=== PATIENT | male | born 1935 | race Caucasian/White ===

== ENCOUNTER 2017-04-21 10:16 | Emergency (ER) | payer MEDICARE ==
[~2017-04-21] VITALS: Ht 180.3 cm; Wt 89.4 kg
[~2017-04-21 10:16] MED LIST: CARDIZEM CD240 MG PO; CARTIA XT240 MG PO; FINASTERIDE5 MG PO; FISH OIL500 M1 PO; FLAXSEED1000 MG PO; MICARDIS40 MG PO; NEXIUM40 MG PO; POTASSIUM CL 225 MEQ PO; PRED FORTE1 ML OP; PULMICORT FLE180 MCG IH; PULMICORT FLEX90 MCG IH; SYNTHROID150 MCG PO; TRIAMTERENE-HC1 EAC3 PO; VITAMIN B-1250 MCG PO; VITAMIN B-150 MG PO; VITAMIN B-6200 MG PO
[2017-04-21] MEDS ORDERED: NEXIUM5 MG PO (11:24)
[2017-04-21] MEDS ORDERED: PREDNISONE20 MG PO (11:29)
[2017-04-21] MEDS ORDERED: BONINE25 MG PO (11:29)
--- NOTE | 2017-04-21 14:47 | EKG ---
[facility] [address] [facility] [place] [address] Signed Sinus rhythm with blocked premature atrial complexes Inferior infarct , age undetermined Abnormal ECG No previous ECGs available Confirmed by QUIANA CALDERON MD ([id number]) on 04/21/2017 2:47:45 PM Electronically Signed By: QUIANA CALDERON MD 04/21/17 1447 PATIENT NAME: GURWINDER STARK Electrocardiogram DATE OF : 35 PHYSICIAN: QUIANA CALDERON MD REPORT #: [id number] REPORT IS CONFIDENTIAL AND NOT TO BE RELEASED WITHOUT AUTHORIZATION
== END 2017-04-21 12:02 | disposition home or self-care (01) ==
LOC: ED 10:16
DX: H83.09 Labyrinthitis, unspecified ear (principal); H55.00 Unspecified nystagmus; I10 Essential (primary) hypertension; K21.9 Gastro-esophageal reflux disease without esophagitis; Z88.2 Allergy status to sulfonamides; Z79.899 Other long term (current) drug therapy
CPT/HCPCS: 70450; 80053; 84484; 85025; 93005; 93010; 96361; 96374; 99284; J2405; J7030

== ENCOUNTER 2018-11-20 08:43 | Emergency (ER) | payer MEDICARE ==
[~2018-11-20] VITALS: Ht 180.3 cm; Wt 89.4 kg
[~2018-11-20 08:43] MED LIST changes: +BONINE25 MG PO; +NEXIUM5 MG PO; +PREDNISONE20 MG PO
[2018-11-20] MEDS ORDERED: DIOVAN320 MG PO (08:59)
== END 2018-11-20 09:16 | disposition home or self-care (01) ==
LOC: ED 08:43
DX: M70.21 Olecranon bursitis, right elbow (principal); K21.9 Gastro-esophageal reflux disease without esophagitis; I10 Essential (primary) hypertension; Z79.52 Long term (current) use of systemic steroids; Z79.899 Other long term (current) drug therapy; Z88.2 Allergy status to sulfonamides
CPT/HCPCS: 99283

== ENCOUNTER 2018-12-17 07:52 | Emergency (ER) | payer MEDICARE ==
[~2018-12-17] VITALS: Ht 180.3 cm; Wt 89.4 kg
--- OUTSIDE RECORDS SUMMARY | ~2018-12-17 | XMS | Encounter Summary ---
Demographics + + + | Address | [address] | | | [place] [address] | + + + | Home Phone | | + + + | Preferred Language | Unknown | + + + | Marital Status | | + + + | Mormonism Affiliation | ADV | + + + | Race | White | + + + | Ethnic Group | Not or | + + + Author + + + | Author | [facility] | + + + | Organization | [facility] | + + + | Address | Unknown | + + + | Phone | Unavailable | + + + Support + + + + + | Name | Relationship | Address | Phone | + + + + + | JESSICA VIZCAINO | ECON | [place] | | + + + + + Care Team Providers + +------+ + | Care Cover Operator Name | Role | Phone | + +------+ + | No Pcp Per Patient | PCP | Unavailable | + +------+ + Encounter Details +--------+ + + + + | Date | Type | Department | Care Team | Description | +--------+ + + + + | 09/22/ | Results | [facility] | Estuardo Lindo, | | | 2017 | Only | [address] | MD [address] | | | | | [place], [place] | [place] [address] | | | | | [address] | [phone] | | | | | | | | +--------+ + + + [...] + +---------+ + | Alcohol Use | Drinks/We | oz/Week | Comments | | | ek | | | + + +---------+ + | No | | | | + + +---------+ + + + + | Sex Assigned at | Date Recorded | | | | + + + | Not on file | | + + + as of this encounter Plan of Treatment +--------+---------+ + + + | Date | Type | Specialty | Care Team | Description | +--------+---------+ + + + | 03/09/ | Office | Urology | Estuardo Lindo, | | | 2018 | Visit | | [address] | | | | | | [place] [address] | | | | | | [phone] | | | | | | | | +--------+---------+ + + + as of this encounter Procedures + +--------+ + + + | Procedure Name | Priori | Date/Time | Associated Diagnosis | Comments | | | ty | | | | + +--------+ + + + | BASIC METABOLIC SET | Routin | 09/22/2018 | | Results for this | | (NA, K, CL, TCO2, | e | 9:10 AM | | procedure are in the | | BUN, CR, GLU, CA) | | PST | | results section. | + +--------+ + + + in this encounter Results BASIC METABOLIC SET (NA, K, CL, TCO2, BUN, CR, GLU, CA) (09/22/2018 9:10 AM) + + + + + | Component | Value | Ref Range | Performed At | + + + + + | SODIUM, PLASMA (LAB) | 135 | 132 - 143 meq/L | [facility] - | | | | | [place] | + + + + + | POTASSIUM, PLASMA | 3.2 (L) | 3.6 - 5.1 meq/L | [facility] - | | (LAB) | | | [place] | + + + + + | CHLORIDE, PLASMA | 96 | 95 - 112 meq/L | [facility] - | | (LAB) | | | [place] | + + + + + | CO2 | 24 | 19 - 31 meq/L | [facility] - | | | | | [place] | + + + + + | ANION GAP | 18.2 | 7 - 21 | [facility] - | | | | | [place] | + + + + + | GLUCOSE, PLASMA | 126 (H) | 70 - 100 mg/dL | [facility] - | | (LAB) | | | [place] | + + + + + | CALCIUM | 9.2 | 8.5 - 10.3 mg/dL | [facility] - | | | | | [place] | + + + + + | BUN, PLASMA (LAB) | 23 | 6 - 23 mg/dL | [facility] - | | | | | [place] | + + + + + | CREATININE PLASMA | 1.16 (H) | 0.70 - 1.11 mg/dL | [facility] - | | (LAB) | | | [place] | + + + + + | ESTIMATED GFR | 60 | ml/min | [facility] - | | | | | [place] | + + + + + | BUN/CREATININE RATIO | 19.8Comment: | 6.0 - 28.6 | [facility] - | | | | | [place] | | | ESTIMATED GFR Reference | | | | | Range: GFR = Less | | | | | than 60: Chronic Kidney | | | | | Disease, if found over | | | | | a 3 month | | | | | period. GFR = | | | | | Less than 15: Kidney | | | | | Failure. For | | | | | Americans, | | | | | multiply the calculated | | | | | GFR by 1.21. GFR | | | | | calculation is not valid | | | | | for patients under age | | | | | 18 years. For | | | | | patients over age 70 | | | | | please interpret results | | | | | with caution as | | | | | results have not | | | | | been validated for this | | | | | calculation | | | | | method | | | | | Please Note: Calcium | | | | | reference range change | | | | | as of 04/15/2018. | | | | | | | | + + + + + + + + | Narrative | Performed At | + + + | Testing Performed at: [facility] [place] [facility] CLIA: [id number] - [address] | [facility] | | [place] [address] | - [place] | + + + + + + + + | Performing | Address | City/State/Zipcode | Phone Number | | Organization | | | | + + + + + | [facility] - | [address] | [place] | [phone] | | [place] | | | | + + + + + in this encounter Visit Diagnoses Not on filein this encounter"
--- OUTSIDE RECORDS SUMMARY | ~2018-12-17 | XMS | Encounter Summary ---
Demographics + + + | Address | [address] | | | [place] [address] | + + + | Home Phone | | + + + | Preferred Language | Unknown | + + + | Marital Status | | + + + | Cheondoism Affiliation | ADV | + + + | Race | White | + + + | Ethnic Group | Not or | + + + Author + + + | Author | [facility] | + + + | Organization | [facility] | + + + [...] Team Providers + +------+ + | Care Information Security Architect Name | Role | Phone | + [...] + | 09/27/ | Telephone | [facility] | Estuardo Lindo, | Test Results | | 2017 | | [place] [address] | MD [address] | ([address]ressin | | | | [place], [place] | [place] [address] | follow-up, low | | | | [address] | [phone] | potassium) | | | | [phone] | | | +--------+ + + + [...] | | 2018 | Visit | | [address] | | | | | | [place] [address] | | | | | | [phone] | | | | | | | | +--------+---------+ + + + as of this encounter Visit Diagnoses Not on filein this encounter"
--- OUTSIDE RECORDS SUMMARY | ~2018-12-17 | XMS | Clinical Summary ---
Demographics + + + | Address | [address] | | | [place] [address] | + + + | Home Phone | | + + + | Preferred Language | Unknown | + + + | Marital Status | | + + + | Tenriism Affiliation | ADV | + + + | Race | White | + + + | Ethnic Group | Not or | + + + Author + + + | Author | [facility] | + + + | Organization | [facility] | + + + | Address | Unknown | + + + | Phone | Unavailable | + + + Support + + + + + | Name | Relationship | Address | Phone | + + + + + | JESSICA VIZCAINO | ECON | [place] | | + + + + + Care Team Providers + +------+ + | Care Life Insurance Underwriter Name | Role | Phone | + +------+ + | No Pcp Per Patient | PP | Unavailable | + +------+ + Source Comments ADRIENNE is fully live on both [facility] and [facility] Allergies + + + +--------+ + | Active Allergy | Reactions | Severity | Noted | Comments | | | | | Date | | + + + +--------+ + | Sulfasalazine | Rash | Medium | | | + + + +--------+ + Current Medications + + +--------+---------+------+------+-------+ | Prescription | Sig. | Disp. | Refills | Star | End | Statu | | | | | | t | Date | s | | | | | | Date | | | + + +--------+---------+------+------+-------+ | ofloxacin 0.3 % | | | | 02/1 | | Activ | | ophthalmic (eye) | | | | 02/14 | | e | | drops | | | | 18 | | | + + +--------+---------+------+------+-------+ | telmisartan 80 mg | Take one tablet | | | 06/ | | Activ | | oral tablet | daily | | | 01/15 | | e | | | | | | 16 | | | + + +--------+---------+------+------+-------+ | potassium chloride | Take 2 tablets twice | | | 07/0 | | Activ | | SR 20 mEq oral | daily | | | 20 | | e | | tablet,ER | | | | 17 | | | | particles/crystals | | | | | | | + + +--------+---------+------+------+-------+ | dilTIAZem CD 24 | Take by mouth. | | | 05/29 | | Activ | | hour release 240 mg | | | | 12/15 | | e | | oral | | | | 12 | | | | capsule,extended | | | | | | | | release 24hr | | | | | | | + + +--------+---------+------+------+-------+ | levothyroxine 175 | | | | 09/29 | | Activ | | mcg oral tablet | | | | 01/15 | | e | | | | | | 18 | | | + + +--------+---------+------+------+-------+ | | Take one tablet | | | 05/0 | | Activ | | triamterene-hydrochl | daily | | | 06/17 | | e | | orothiazide 75-50 mg | | | | 16 | | | | oral tablet | | | | | | | + + +--------+---------+------+------+-------+ | budesonide | INHALE 2 PUFFS BY | | | 05/30 | | Activ | | (PULMICORT | MOUTH TWICE DAILY | | | 05/17 | | e | | FLEXHALER) 180 | | | | 17 | | | | mcg/actuation | | | | | | | | inhalation aerosol | | | | | | | | powdr breath | | | | | | | | activated | | | | | | | + + +--------+---------+------+------+-------+ | cholecalciferol | Take by mouth. | | | | | Activ | | (Vitamin D3) 2,000 | | | | | | e | | unit oral capsule | | | | | | | + + +--------+---------+------+------+-------+ | cyanocobalamin | Take by mouth. | | | | | Activ | | (VITAMIN B-12) 500 | | | | | | e | | mcg oral tablet | | | | | | | + + +--------+---------+------+------+-------+ | esomeprazole | Take by mouth. | | | 05/29 | | Activ | | (NEXIUM) 40 mg oral | | | | 320 | | e | | capsule,delayed | | | | 12 | | | | release(DR/EC) | | | | | | | + + +--------+---------+------+------+-------+ | thiamine 250 mg | Take by mouth. | | | | | Activ | | oral tablet | | | | | | e | + + +--------+---------+------+------+-------+ | pyridoxine | Take 1 tablet by | | | | | Activ | | (vitamin B6) 100 mg | mouth once daily. | | | | | e | | oral tablet | | | | | | | + + +--------+---------+------+------+-------+ | folic acid 800 mcg | Take 1 tablet by | | | | | Activ | | oral tablet | mouth once daily. | | | | | e | + + +--------+---------+------+------+-------+ | B2/VITS | Take 1 capsule by | | | 05/29 | | Activ | | A,C,E/LUT/ZEAXANTH/M | mouth two times | | | 3/20 | | e | | IN (ICAPS ORAL) | daily. | | | 12 | | | + + +--------+---------+------+------+-------+ | losartan 100 mg | | | | 10/0 | | Activ | | oral tablet | | | | 9/20 | | e | | | | | | 18 | | | + + +--------+---------+------+------+-------+ | prednisoLONE | 1 drop once daily. | | | | | Activ | | acetate 1 % | | | | | | e | | ophthalmic (eye) | | | | | | | | drops,suspension | | | | | | | + + +--------+---------+------+------+-------+ | propylene | Instill 3 drops in | | | | | Activ | | glycol/peg 400 | eye three times | | | | | e | | (SYSTANE ULTRA OPHT) | daily. | | | | | | + + +--------+---------+------+------+-------+ | desmopressin 10 | Instill 1 spray into | 5 mL | 11 | 12/1 | | Activ | | mcg/spray (0.1 mL) | either nostril once | | | 2/20 | | e | | nasal | daily. | | | 18 | | | | spray,non-aerosol | | | | | | | + + +--------+---------+------+------+-------+ | FINASTERIDE 5 mg | TAKE 1 TABLET BY | 90 | 3 | 02/0 | | Activ | | oral tablet | MOUTH ONCE DAILY | tablet | | 05/17 | | e | | | | | | 19 | | | + + +--------+---------+------+------+-------+ Active Problems + + + | Problem | Noted Date | + + + | BPH with obstruction/lower urinary tract symptoms | 10/13/2016 | + + + Encounters +--------+ + + + + | Date | Type | Specialty | Care Team | Description | +--------+ + + + + | 11/05/ | Refill | | Estuardo Lindo, | Refill Request | | 2018 | | | MD | | +--------+ + + + + | 09/27/ | Telephone | | Estuardo Lindo, | Test Results | | 2017 | | | MD | ([address]mopressin | | | | | | follow-up, low | | | | | | potassium) | +--------+ + + + + | 09/22/ | Results | | Estuardo Lindo, | | | 2017 | Only | | MD | | +--------+ + + + + from Last 3 Months Immunizations + + + + | Name | Dates Previously Given | Next Due | + + + + | Influenza, Seasonal, | 07/13/2018, 10/06/2017 | | | Trivalent Vaccine, | | | | Adjuvanted, | | | | Preservative Free | | | + + + + | Influenza, high dose | 07/18/2016, 07/13/2016, 07/23/2015, | | | seasonal, | 06/16/2014 | | | preservative-free | | | + + + + | Influenza, | 07/29/2013, 06/03/2012 | | | Feliz maldonado | | | | [place] Canine Kidney, | | | | preservative free | | | + + + + | Influenza, seasonal, | 07/29/2013, 07/05/2013, 06/23/2012, | | | injectable, | 06/03/2012, 06/29/2011, 06/26/2010 | | | preservative free | | | | (IIV3) | | | + + + + | Influenza, split | 06/05/2009, 07/21/2008 | | | (incl. purified | | | | surface antigen) | | | + + + + | [id number], | 11/06/2009 | | | injectable | | | + + + + | PCV13 | 04/25/2016 | | + + + + | Pneumococcal 23 | 04/27/2015 | | + + + + | Zoster live | 06/23/2012, 06/03/2012 | | + + + + | influenza, | 07/09/2015, 07/29/2013, 06/03/2012 | | | recombinant, | | | | injectable, | | | | preservative free | | | + + + + Family History + + +------+ + | Medical History | Relation | Name | Comments | + + +------+ + | Cancer | Father | | lung and liver | + + +------+ + | Heart Attack | Maternal | | | | | Grandfath | | | | | er | | | + + +------+ + | Heart Disease | Mother | | | + + +------+ + | Heart Failure | Mother | | | + + +------+ + | Anesthesia | Neg Hx | | | + + +------+ + | Breast Cancer | Neg Hx | | | + + +------+ + | Prostate Cancer | Neg Hx | | | + + +------+ + + +------+ + + | Relation | Name | Status | Comments | + +------+ + + | Father | | | | + +------+ + + | Maternal Grandfather | | | | + +------+ + + | Maternal Grandmother | | | | + +------+ + + | Mother | | | | + +------+ + + Social History + +-------+ +--------+------+ [...] on file | | + + + Last Filed Vital Signs + + + + | Vital Sign | Reading | Time Taken | + + + + | Blood Pressure | 163/93 | 09/08/2018 11:55 AM PST | + + + + | Pulse | 73 | 09/08/2018 11:55 AM PST | + + + + | Temperature | - | - | + + + + | Respiratory Rate | 16 | 09/08/2018 11:55 AM PST | + + + + | Oxygen Saturation | - | - | + + + + | Inhaled Oxygen | - | - | | Concentration | | | + + + + | Weight | 88.9 kg (196 lb) | 11/19/2017 10:10 AM PST | + + + + | Height | 181.6 cm (5' 11.5") | 11/19/2017 10:10 AM PST | + + + + | Body Mass Index | 26.96 | 11/19/2017 10:10 AM PST | + + + + Plan of Treatment +--------+---------+ + + + | Date | Type | Specialty | Care Team | Description | +--------+---------+ + + + | 03/09/ | Office | | Estuardo Lindo, | | | 2018 | Visit | | [address] | | | | | | [place] [address] | | | | | | [phone] | | | | | | | | +--------+---------+ + + + + + + + + | Health Maintenance | Due Date | Last Done | Comments | + + + + + | Pneumococcal (Adult) | Completed | 04/25/2016, 04/27/2015 | | + + + + + | Influenza (Flu) | Completed | 07/13/2018, 10/06/2017, | | | vaccination | | 07/18/2016, Additional history | | | | | exists | | + + + + + Procedures + +--------+ + + + | [...] section. | + +--------+ + + + from Last 3 Months Results BASIC METABOLIC SET (NA, K, CL, [...] Testing Performed at: [facility] [place] [facility] CLIA: [id number] - [address] | [facility] | | [place] [address] | - [place] | + + + + + + + + | Performing | Address | City/State/Zipcode | Phone Number | | Organization | | | | + + + + + | [facility] - | [address] | [place], [place] | [phone] | | [place] | | | | + + + + + from Last 3 Months Insurance + +--------+ +--------+ + + | Payer | Benefi | Subscriber | Type | Phone | Address | | | t Plan | ID | | | | | | / | | | | | | | Group | | | | | + +--------+ +--------+ + + | MEDICARE | MEDICA | xxxxxxxxxx | Medica | [phone] | [id number] | | | RE A & | | re | [phone] | [place] [address] | | | B | | | | | + +--------+ +--------+ + + | COMMERCIAL GROUP | COMMER | xxxxxxxxx | Indemn | | | | | CIAL | | ity | | | | | GROUP | | | | | + +--------+ +--------+ + + | MEDICARE | MEDICA | xxxxxxxxxx | Medica | [phone] | [address] | | | RE A & | | re | [phone] | [place] [address] | | | B | | | | | + +--------+ +--------+ + + | [employer] | AARP | xxxxxxxxxxx | Indemn | [phone] | [address] | | RETIRED PEOPLE | | | ity | [phone] | [place] [address] | + +--------+ +--------+ + + + +--------+ +--------+ + + | Guarantor Name | Accoun | Relation to | Date | Phone | Billing Address | | | t Type | Patient | of | | | | | | | | | | + +--------+ +--------+ + + | GURWINDER STARK | Person | Self [birth year] | Home: | [address] | | | al/Fam | | 1936 | [phone] | [place] [address] | | | almaz | | | [address] | | + +--------+ +--------+ + + | GURWINDER STARK | Person | Self | [birth year] | Home: | [address] | | | al/Fam | | 1936 | [phone] | [place], [place] | | | almaz | | | [phone] | [phone] | + +--------+ +--------+ + +
--- OUTSIDE RECORDS SUMMARY | ~2018-12-17 | XMS | Encounter Summary ---
Demographics + + + | Address | [address] | | | [place] [address] | + + + | Home Phone | | + + + | Preferred Language | Unknown | + + + | Marital Status | | + + + | Evangelical Affiliation | ADV | + + + | Race | White | + + + | Ethnic Group | Not or | + + + Author + + + | Author | [facility] | + + + | Organization | [facility] | + + + | [...] Team Providers + +------+ + | Care Professor Of Biological Sciences Name | Role | Phone | + [...] Description | +--------+--------+ + + + | 11/05/ | Refill | [facility] | Estuardo Lindo, | Refill Request | | 2018 | | [place] [address] | [address] | | | | | [place], [place] | [place], [place] [address] | | | | | [address] | [phone] | | | | | [phone] | | | +--------+--------+ + + + [...] | | | | | [place] [address] | | | | | | [phone] | | | | | | | | +--------+---------+ + + + as of this encounter Visit Diagnoses Not on filein this encounter"
--- OUTSIDE RECORDS SUMMARY | ~2018-12-17 | XMS | Clinical Summary ---
Demographics + + + | Address | [address] | | | [place] [address] | + + + | Home Phone [...] Team Providers + +------+ + | Care Aws Consultant Name | Role | Phone | + +------+ + | No Pcp Per Patient | PP | Unavailable | + +------+ + Source Comments ADRIENNE is fully live on both [facility] and [facility] Allergies + + + +--------+ [...] | Feliz maldonado | | | | [place] Canine Kidney, | | | | preservative [...] | | + + + + | [id number], | 11/06/2009 | | | injectable | [...] | | | | | [place] [address] | | | | | | [phone] | | | | | | | [...] Testing Performed at: [facility] [facility] CLIA: [id number] - [address] | [facility] | | [place] [address] | - [place] | + + + + + + + + | Performing | Address | City/State/Zipcode | Phone Number | | Organization | | | | + + + + + | [facility] - | [address] | [place], [place] | [phone] | | [place] | | | | [...] | MEDICA | xxxxxxxxxx | Medica | [phone] | [phone] | | | RE A & | | re | [phone] | [place] [address] | | | B | | | [...] | re | [phone] | [place] [address] | | | B | | | | | + +--------+ +--------+ + + | [employer] | AARP | xxxxxxxxxxx | Indemn | [phone]- | [address] | | RETIRED PEOPLE | | | ity | [phone] | [place] [address] | + +--------+ +--------+ + + + [...] | | al/Fam | | 1936 | [phone] | [place] [address] | | | almaz | | | 1436 | | + +--------+ +--------+ + + | GURWINDER STARK | Person | Self | [birth year] | Home: | [address] | | | al/Fam | | 1936 | [phone] | [place], [place] | | | almaz | | | 1436 | [phone] | + +--------+ +--------+ + +
--- OUTSIDE RECORDS SUMMARY | ~2018-12-17 | XMS | Encounter Summary ---
Demographics + + + | Address | [address] | | | [place] [address] | + + + | Home Phone | | + + + | Preferred Language | Unknown | + + + | Marital Status | | + + + | Zoroastrianism Affiliation | ADV | + + + | Race | White | + + + | Ethnic Group | Not or | + + + Author + + + | Author | [facility] | + + + | Organization | [facility] | + + + [...] Team Providers + +------+ + | Care Marketing Financial Analyst Name | Role | Phone | + [...] St | | | | | [place], [place] | [place], [place] [address] | | | | | [address] | [phone] | | | | | [phone] | | | +--------+--------+ + + + [...] | | | | | [place] [address] | | | | | | [phone] | | | | | | | | +--------+---------+ + + + as of this encounter Visit Diagnoses Not on filein this encounter"
--- OUTSIDE RECORDS SUMMARY | ~2018-12-17 | XMS | Encounter Summary ---
Demographics + + + | Address | [address] | | | [place] [address] | + + + | Home Phone | | + + + | Preferred Language | Unknown | + + + | Marital Status | | + + + | Mandaeism Affiliation | ADV | + + + | Race | White | + + + | Ethnic Group | Not or | + + + Author + + + | Author | [facility] | + + + | Organization | [facility] | + + + | [...] Team Providers + +------+ + | Care Drill Press Operator Helper Name | Role | Phone | [...] | [place], [place] | [place], [place] [address] | | | | | [address] | [phone] | | | | | | | [...] | | | | | [place] [address] | | | | | | [phone] | | | | | | | [...] Testing Performed at: [facility] CLIA: [id number] - [address] | [facility] | | [place] [address] | - [place] | + + + + + + + + | Performing | Address | City/State/Zipcode | Phone Number | | Organization | | | | + + + + + | [facility] - | [address] | [place] | [phone] | | [place] | | | | + + + + + in this encounter Visit Diagnoses Not on filein this encounter"
--- OUTSIDE RECORDS SUMMARY | ~2018-12-17 | XMS | Clinical Summary ---
Demographics + + + | Address | [address] | | | [place] [address] | + + + | Home Phone | | + + + | Preferred Language | Unknown | + + + | Marital Status | | + + + | Mormonism Affiliation | 1001 | + + + | Race | Unknown | + + + | Ethnic Group | Unknown | + + + Author + + + | Author | [facility] | | | and [place] | + + + | Organization | [facility] | | | and [place] | + + + | Address | Unknown | + + + | Phone | Unavailable | + + + Support + + +---------+ + | Name | Relationship | Address | Phone | + + +---------+ + | Lisa Stark | ECON | Unknown | | + + +---------+ + Care Team Providers + +------+ + | Care Refinery Operator Coking Name | Role | Phone | + +------+ + | Chava Ibanez | PP | | | MD | | | [...] + +--------+ + Current Medications + + +---------+---------+------+------+-------+ | Prescription | Sig. | Disp. | Refills | Star | End | Statu | | | | | | t | Date | s | | | | | | Date | | | + + +---------+---------+------+------+-------+ | diltiazem | Take 240 mg by mouth | | | /1 | | Activ | | (CARDIZEM CD) 240 MG | Daily. | | | 3/20 | | e | | 24 hr capsule | | | | 12 | | | + + +---------+---------+------+------+-------+ | esomeprazole | Take 40 mg by mouth | | | 091 | | Activ | | (NEXIUM) 40 mg | Daily. | | | 3/20 | | e | | capsule | | | | 12 | | | + + +---------+---------+------+------+-------+ | Multiple | Take by mouth 2 | | | 05/29 | | Activ | | Vitamins-Minerals | times daily. | | | 12/15 | | e | | (EYE VITAMINS) CAPS | | | | 12 | | | + + +---------+---------+------+------+-------+ | PrednisoLONE | Apply to eye. 1 | | | | | Activ | | Sodium Phosphate | drop in each eye | | | | | e | | (PREDNISOL OP) | once a day | | | | | | + + +---------+---------+------+------+-------+ | Pyridoxine HCl | Take 100 mg by mouth | | | | | Activ | | (VITAMIN B-6) 100 MG | Daily. | | | | | e | | tablet | | | | | | | + + +---------+---------+------+------+-------+ | potassium chloride | Take 2 tablets am, 2 | | 2 | 07/0 | | Activ | | (K-DUR) 20 mEq ER | noon, 1 bedtime | | | 06/17 | | e | | tablet | | | | 17 | | | + + +---------+---------+------+------+-------+ | folic acid | Take 400 mcg by | | | | | Activ | | (FOLVITE) 800 MCG | mouth Daily. | | | | | e | | tablet | | | | | | | + + +---------+---------+------+------+-------+ | Cholecalciferol | Take 2,000 Units by | | | | | Activ | | (VITAMIN D-3) 2000 | mouth Daily. | | | | | e | | units CAPS | | | | | | | + + +---------+---------+------+------+-------+ | Thiamine HCl | Take 250 mg by mouth | | | | | Activ | | (VITAMIN B-1) 250 MG | Daily. | | | | | e | | tablet | | | | | | | + + +---------+---------+------+------+-------+ | cyanocobalamin | Take 500 mcg by | | | | | Activ | | (VITAMIN B-12) 500 | mouth Daily. | | | | | e | | mcg tablet | | | | | | | + + +---------+---------+------+------+-------+ | doxazosin | Take 1 tablet by | | | 03/29 | | Activ | | (CARDURA) 2 mg | mouth nightly. | | | 01/15 | | e | | tablet | | | | 18 | | | + + +---------+---------+------+------+-------+ | finasteride | Take 1 tablet by | | | 01/27 | | Activ | | (PROSCAR) 5 mg | mouth Daily. | | | 01/15 | | e | | tablet | | | | 18 | | | + + +---------+---------+------+------+-------+ | valsartan (DIOVAN) | Take 1 tablet by | | | 02/27 | | Activ | | 320 MG tablet | mouth Daily. | | | 05/17 | | e | | | | | | 18 | | | + + +---------+---------+------+------+-------+ | ofloxacin | Apply 1 drop to eye | | | 05/1 | | Activ | | (OCUFLOX) 0.3% | 3 times daily. | | | 5/20 | | e | | ophthalmic solution | | | | 18 | | | + + +---------+---------+------+------+-------+ | levothyroxine | Take 175 mcg by | | | | | Activ | | (SYNTHROID) 175 MCG | mouth every morning | | | | | e | | tablet | (before breakfast). | | | | | | + + +---------+---------+------+------+-------+ | | Take 1 tablet by | | | | | Activ | | triamterene-hydrochl | mouth Daily. | | | | | e | | orothiazide | | | | | | | | (MAXZIDE) 75-50 mg | | | | | | | | per tablet | | | | | | | + + +---------+---------+------+------+-------+ | budesonide | Inhale 1 puff into | 3 | 3 | 03/29 | | Activ | | (PULMICORT | the lungs 2 times | Inhaler | | 5/20 | | e | | FLEXHALER) 180 | daily. | | | 18 | | | | mcg/puff | | | | | | | | inhalerIndications: | | | | | | | | Bronchiectasis | | | | | | | | without complication | | | | | | | | ([facility]) | | | | | | | + + +---------+---------+------+------+-------+ Active Problems + + + | Problem | Noted Date | + + + | Sjogren's syndrome ([facility]) | 12/01/2012 | + + + + [...] | INFLUENZA 65 Y OR >, | 07/18/2016 | | | TRIVALENT HIGH-DOSE | | [...] 1 DOSE | 06/03/2012 | | | (MANUELX) | | | + + + + [...] + + + + | Brother | [place] | | | + + + + [...] + + + + | Sister | [place] | Alive | | + + + [...] + +---------+ + | No | 0 | 0.0 | | | | Standard | | | | | drinks or | | | | | | | | | | equivalen | | | | | t | | | + + +---------+ + + + + | Sex Assigned at | Date Recorded | | | | + + + | Not on file | | + + + Last Filed Vital Signs + + + + | Vital Sign | Reading | Time Taken | + + + + | Blood Pressure | 122/68 | 04/21/2018921 PDT | + + + + | Pulse | 65 | 04/21/2018921 PDT | + + + + | Temperature | - | - | + + + + | Respiratory Rate | 14 | 04/27/2015 1114 PDT | + + + + | Oxygen Saturation | 96% | 04/21/2018921 PDT | + + + + | Inhaled Oxygen | - | - | | Concentration | | | + + + + | Weight | 94.5 kg (208 lb 5.4 | 04/21/2018921 PDT | | | oz) | | + + + + | Height | 181.6 cm (5' 11.5") | 04/21/2018921 PDT | + + + + | Body Mass Index | 28.65 | 04/21/2018921 PDT | + + + + Plan of Treatment +--------+---------+ + + + | Date | Type | Specialty | Care Team | Description | +--------+---------+ + + + | 04/22/ | Office | | Jeffrey Mejia, | | | 2018 | Visit | | MD Christine Painting | | | | | | Oliva, Level II | | | | | | [place] | | | | | | [address] | | | | | | | | +--------+---------+ + + + + + + + + | Health Maintenance | Due Date | Last Done | Comments | + + + + + | Vaccine: | | | | | Dtap/Tdap/Td (1 - | 5 | | | | Tdap) | | | | + + + + + | Vaccine: Zoster (2 | | 06/03/2012 | | | of 3) | 2 | | | + + + + + | Adult Annual | | | | | Wellness Visit | 5 | | | + + + + + | Vaccine: Influenza | | 07/18/2016, 07/09/2015, | | | (#1) | 8 | 07/29/2013, Additional history | | | | | exists | | + + + + + | Vaccine: | Completed | 04/25/2016, 04/27/2015 | | | Pneumococcal 65+ | | | | | Low/Medium Risk | | | | + + + + + Results Not on filefrom Last 3 Months Insurance + +--------+ +--------+ +---------+ | Payer | Benefi | Subscriber | Type | Phone | Address | | | t Plan | ID | | | | | | / | | | | | | | Group | | | | | + +--------+ +--------+ +---------+ | MEDICARE | MEDICA | [id number] | Medica | [phone]- | | | | RE | | re | [phone] | | | | PART A | | | | | | | AND B | | | | | + +--------+ +--------+ +---------+ | AARP | AARP | [id number] | Indemn | [phone] | | | MDCR | | ity | [phone] | | | | SUPPL | | | | | + +--------+ +--------+ +---------+ + +--------+ +--------+ + + | Guarantor Name | Accoun | Relation to | Date | Phone | Billing Address | | | t Type | Patient | of | | | | | | | | | | + +--------+ +--------+ + + | GURWINDER STARK | Person | Self [birth year] Home: | [address] | | | al/Fam | | 1936 | [phone] | [place] [address] | | | almaz | | | [phone] | | + +--------+ +--------+ + +
--- OUTSIDE RECORDS SUMMARY | ~2018-12-17 | XMS | Encounter Summary ---
Demographics + + + | Address | [address] | | | [place] [address] | + + + | Home Phone | | + + + | Preferred Language | Unknown | + + + | Marital Status | | + + + | Nondenominational Affiliation | ADV | + + + | Race | White | + + + | Ethnic Group | Not or | + + + Author + + + | Author | [facility] | + + + | Organization | [facility] | + + + | [...] Team Providers + +------+ + | Care Pan Reclaim Processor Name | Role | Phone | + [...] | (Desmopressin | | | | [place], [place] | [place] [address] | follow-up, low | | | | [address] | [phone] | potassium) | | | | [phone] | | | +--------+ + + + [...] | | | | | [place] [address] | | | | | | [phone] | | | | | | | | +--------+---------+ + + + as of this encounter Visit Diagnoses Not on filein this encounter"
--- OUTSIDE RECORDS SUMMARY | ~2018-12-17 | XMS | Clinical Summary ---
Demographics + + + | Address | [address] | | | [place] [address] | + + + | Home Phone | | + + + | Preferred Language | Unknown | + + + | Marital Status | | + + + | Gnosticism Affiliation | 1001 | + + + | Race | Unknown | + + + | Ethnic Group | Unknown | + + + Author + + + | Author | [facility] | | | and [place] | + + + | Organization | [facility] | | | and [place] | [...] Providers + +------+ + | Care Sole Cutter Name | Role | Phone | + [...] | | | | | | | ([facility]) | | | | | | | + + +---------+---------+------+------+-------+ Active Problems + + + | Problem | Noted Date | + + + | Sjogren's syndrome ([facility]) | 12/01/2012 | + + + + [...] + + + + | Sister | [place] | Alive | | + + + [...] [place] | | | | | | [address] | | | | | | | [...] +--------+ +---------+ | MEDICARE | MEDICA | [id number] | Medica | +1- | | | | RE | | re | [phone] | | | | PART A | | | | | | | AND B | | | | | + +--------+ +--------+ +---------+ | AARP | AARP | [id number] | Indemn | [phone] | | | [...] | 1936 | [phone] | [place] [address] | | | almaz | | | [phone] | | + +--------+ +--------+ + +
[~2018-12-17 07:52] MED LIST changes: +DIOVAN320 MG PO
--- OUTSIDE RECORDS SUMMARY | 2018-12-17 07:54 | XMS ---
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 - 2 Visits in 30 Days CARE PROVIDERS Chava Ibanez MD PHONE: Unknown Barbra has no Care Guidelines for this patient. EMolly VISIT COUNT ([address] [facility] TOTAL 2 NOTE: Visits indicate total known visits. ED/UCC VISIT TRACKING (12 MO.) 12/17/2018 07:53 [facility] TYPE: Emergency COMPLAINT: - RT FOOT PAIN 11/20/2018 08:44 [facility] [place] TYPE: Emergency COMPLAINT: - R ELBOW SWELLING DIAGNOSES: - Essential (primary) hypertension - manager intermediate (current) use of systemic steroids - Other [facility] (current[facility] drug therapy - Localized swelling, mass and lump, right upper limb - Gastro-esophageal reflux disease without esophagitis - Allergy status to sulfonamides status - Olecranon bursitis, right elbow INPATIENT VISIT TRACKING (12 MO.) No inpatient visits to display in this time frame [email or web address]
[2018-12-17] MEDS ORDERED: KEFLEX500 MG PO (08:22)
[2018-12-17] MEDS ORDERED: NORCO 5-325 TA1 EACH PO (08:22)
== END 2018-12-17 09:00 | disposition home or self-care (01) ==
LOC: ED 07:52
DX: L03.115 Cellulitis of right lower limb (principal); K21.9 Gastro-esophageal reflux disease without esophagitis; I10 Essential (primary) hypertension; Z90.49 Acquired absence of other specified parts of digestive tract; Z88.2 Allergy status to sulfonamides; Z79.899 Other long term (current) drug therapy
CPT/HCPCS: 96372; 99282-25; J0696

== ENCOUNTER 2019-09-22 06:55 | Emergency (ER) | payer MEDICARE ==
[~2019-09-22] VITALS: Ht 180.3 cm; Wt 88.0 kg
--- OUTSIDE RECORDS SUMMARY | ~2019-09-22 | XMS | Encounter Summary ---
Demographics + + + | Address | [address] | | | [place] [address] | + + + | Home Phone | | + + + | Preferred Language | Unknown | + + + | Marital Status | | + + + | Jain Affiliation | ADV | + + + | Race | White | + + + | Ethnic Group | Not or | + + + Author + + + | Author | [facility] | + + + | Organization | [facility] | + + + | Address | Unknown | + + + | Phone | Unavailable | + + + Support + + + + + | Name | Relationship | Address | Phone | + + + + + | Diana [place] | ECON | [place] | | + + + + + Care Team Providers + +------+ + | Care Experimental Mechanic Electrical Name | Role | Phone | + +------+ + PCP | Unavailable | + +------+ + Encounter Details +--------+ + + + + | Date | Type | Department | Care Team | Description | +--------+ + + + + | 04/10/ | Results | [facility] | Estuardo Lindo, | | | 2010 | Only | [address] | [address] | | | | | [place], [place] | [place], [place] [address] | | | | | [address] | [phone] | | | | | [phone] | | | +--------+ + + + + Social History + +-------+ +--------+------+ | Tobacco Use | Types | Packs/Day | Years | Date | | | | | Used | | + +-------+ +--------+------+ | Never Assessed | | | | | + +-------+ +--------+------+ + + + | Sex Assigned at | Date Recorded | | | | + + + | Not on file | | + + + + + + + | Job Start Date | Occupation | Industry | + + + + | Not on file | Not on file | Not on file | + + + + + + + + | Travel History | Travel Start | Travel End | + + + + + + | No recent travel history available. | + + documented as of this encounter Plan of Treatment Not on filedocumented as of this encounter Procedures + +--------+ + + + | Procedure Name | Priori | Date/Time | Associated Diagnosis | Comments | | | ty | | | | + +--------+ + + + | TESTOSTERONE, SERUM | Routin | 04/10/2011 | | Results for this | | | e | 12:44 PM | | procedure are in the | | | | PDT | | results section. | + +--------+ + + + documented in this encounter Results TESTOSTERONE, SERUM (04/10/2011 12:44 PM PDT) + +-------+ + + + | Component | Value | Ref Range | Performed | Pathologist | | | | | At | Signature | + +-------+ + + + | TESTOSTERON | 2.60 | 1.68 - 7.58 | [facility] | | | E, TOTAL | | NG/ML | [facility] | | | | | [facility] | | + +-------+ + + + + + | Specimen | + + | | + + + + + + + | Performing | Address | City/State/Zipcode | Phone Number | | Organization | | | | + + + + + | [facility] | | | | | LABORATORY | | | | + + + + + | [facility] | And | [place] [address] | | | [facility] | [facility] | | | + + + + + documented in this encounter Visit Diagnoses Not on filedocumented in this encounter"
--- OUTSIDE RECORDS SUMMARY | ~2019-09-22 | XMS | Encounter Summary ---
Demographics + + + | Address | [address] | | | [place] [address] | + + + | Home Phone | | + + + | Preferred Language | Unknown | + + + | Marital Status | | + + + | Yarsanism Affiliation | 1001 | + + + | Race | Unknown | + + + | Ethnic Group | Unknown | + + + Author + + + | Author | [facility] | | | and [place] | + + + | Organization | [facility] | | | and [place] | + + + | Address | Unknown | + + + | Phone | Unavailable | + + + Support + + +---------+ + | Name | Relationship | Address | Phone | + + +---------+ + | Lisa Lacho | ECON | Unknown | | + + +---------+ + Care Team Providers + +------+ + | Care Ceramic Plater Name | Role | Phone | + +------+ + | Chava Ibanez PCP | | | MD | | | + +------+ + Reason for Visit + + + | Reason | Comments | + + + | Medication Refill | | + + + Encounter Details +--------+--------+ + + + | Date | Type | Department | Care Team | Description | +--------+--------+ + + + | 11/11/ | Refill | [facility] | Dano Wong | Medication Refill | | 2012 | | PULMONARY [address] | [place] [address] [address] | | | | | [place], | [place], [place] | | | | | [place] [address] | [address] | | | | | [phone] | | | +--------+--------+ + + + Social History + +-------+ +--------+------+ | Tobacco Use | Types | Packs/Day | Years | Date | | | | | Used | | + +-------+ +--------+------+ | Never Assessed | | | | | + +-------+ +--------+------+ + + +---------+ + | Alcohol Use | Drinks/Week | oz/Week | Comments | + + +---------+ + | No | | | | + + +---------+ + + + + | Sex Assigned at [...] Not on filedocumented as of this encounter Visit Diagnoses + + | Diagnosis | + + | Asthma - Primary Unspecified asthma | + + documented in this encounter"
--- OUTSIDE RECORDS SUMMARY | ~2019-09-22 | XMS | Encounter Summary ---
Demographics + + + | Address | [address] | | | [place] [address] | + + + | Home Phone | | + + + | Preferred Language | Unknown | + + + | Marital Status | | + + + | Denominational Affiliation | 1001 | + + + | Race | Unknown | + + + | Ethnic Group | Unknown | + + + Author + + + | Author | [facility] | | | and [place] | + + + | Organization | [facility] | | | and [place] | [...] Team Providers + +------+ + | Care Manager Financial Services Name | Role | Phone | + +------+ + PCP | Unavailable | + +------+ + Encounter Details +--------+ + + + + | Date | Type | Department | Care Team | Description | +--------+ + + + + | 01/08/ | Hospital | [facility] | Kade Wheat MD | | | 2000 | Encounter | MED CTR GENERIC OP | [address] | | | | | CONV DEPT [address] | [address] [place] | | | | | [place], | [address] | | | | | [place] [address] | | | | | | [phone] | | | +--------+ + + + [...] filedocumented as of this encounter Visit Diagnoses Not on filedocumented in this encounter"
--- OUTSIDE RECORDS SUMMARY | ~2019-09-22 | XMS | Encounter Summary ---
Demographics + + + | Address | [address] | | | [place] [address] | + + + | Home Phone | | + + + | Preferred Language | Unknown | + + + | Marital Status | | + + + | Congregation Affiliation | 1001 | + + + | Race | Unknown | + + + | Ethnic Group | Unknown | + + + Author + + + | Author | [facility] | | | and [place] | + + + | Organization | [facility] | | | and [place] [...] Team Providers + +------+ + | Care Paediatrician Name | Role | Phone | + +------+ + | Chava Ibanez PCP | | | MD | | | + +------+ + Reason for Visit + + + | Reason | Comments | + + + | Appointment | | + + + Encounter Details +--------+ + + + + | Date | Type | Department | Care Team | Description | +--------+ + + + + | 04/10/ | Telephone | [facility] | Dano Wong | Appointment | | 2014 | | PULMONARY [address] | [place] [address] | | | | | [place], | [place], [place] | | | | | [place] [address] | [address] | | | | | [phone] | | | +--------+ + + + + Social History + +-------+ +--------+------+ | Tobacco Use | Types | Packs/Day | Years | Date | | | | | Used | | + +-------+ +--------+------+ | Never Smoker | | | | | + +-------+ +--------+------+ + +---+---+---+ | Smokeless Tobacco: | | | | | Never Used | | | | + +---+---+---+ + + +---------+ + | Alcohol Use [...]
--- OUTSIDE RECORDS SUMMARY | ~2019-09-22 | XMS | Encounter Summary ---
Demographics + + + | Address | [address] | | | [place] [address] | + + + | Home Phone | | + + + | Preferred Language | Unknown | + + + | Marital Status | | + + + | Rastafari Affiliation | ADV | + + + | Race | White | + + + | Ethnic Group | Not or | + + + Author + + + | Author | [facility] | + + + | Organization | [facility] | + + + | [...] Team Providers + +------+ + | Care Elementary School Reading Teacher Name | Role | Phone | + +------+ + PCP | Unavailable | + +------+ + Encounter Details +--------+ + + + + | Date | Type | Department | Care Team | Description | +--------+ + + + + | 01/20/ | Results | [facility] | Estuardo Lindo, | | | 2005 | Only | [address] | [address] | | | | | [place], [place] | [place], [place] [address] | | | | | [address] | [phone] | | | | | [phone] | | | +--------+ + + + [...] | + +--------+ + + + | IV PYELOGRAM [id number] | Routin | 01/20/2006 | | Results for this | | | e | 11:29 AM | | procedure are in the | | | | PDT | | results section. | + +--------+ + + + documented in this encounter Results IV PYELOGRAM [id number] (01/20/2006 11:29 AM PDT) + + | Specimen | + + | | + + + + + | Narrative | Performed At | + + + | IVP INDICATION: Gross hematuria. FINDINGS: The preliminary KUB | [facility] | | shows levoscoliosis of the spine. There are no suspicious | DEPARTMENT OF | | calcifications identified. 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 The 2-mm calculus noted on CT of May 13, 2000 | | | is not apparent on KUB or plain nephrotomograms. Following IV | | | infusion of contrast, there is a prompt bilateral opacification of | | | kidneys, normal in size, position, and axis. There are developmental | | | lobulations in the kidneys, also shown on the prior CT. There is | | | no evidence of discrete mass. 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 | | | There is no evidence of hydronephrosis or hydroureter, or renal | | | collecting system filling defects. 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 There | | | is increased post void residual in the bladder. There is a vague | | | focal lucency above the TURP defect, raising question of a possible | | | small bladder mass or artifact of blood clot, in this patient with | | | gross hematuria. Cystoscopic evaluation is suggested. IMPRESSION: | | | No evidence of nephrolithiasis, hydronephrosis, or renal mass. | | | TURP defect. Penile prosthesis. Increased postvoid residual. | | | Question of filling defect in the bladder. | | + + + + + | Procedure Note | + + | Interface, Radiology Results - 05/18/2015 2:49 PM PDT IVP | | INDICATION: Gross hematuria. | | FINDINGS: | | The preliminary KUB shows levoscoliosis of the spine. There are no | | suspicious calcifications identified. There is a penile prosthesis | | balloon in the left pelvis. The 2-mm calculus noted on CT of April | | 1999 is not apparent on KUB or plain nephrotomograms. Following | | IV infusion of contrast, there is a prompt bilateral opacification of | | kidneys, normal in size, position, and axis. There are developmental | | lobulations in the kidneys, also shown on the prior CT. There is no | | evidence of discrete mass. 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 There | | is no evidence of hydronephrosis or hydroureter, or renal collecting | | system filling defects. 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 There is increased | | post void residual in the bladder. There is a vague focal lucency | | above the TURP defect, raising question of a possible small bladder | | mass or artifact of blood clot, in this patient with gross hematuria. | | Cystoscopic evaluation is suggested. | | IMPRESSION: No evidence of nephrolithiasis, hydronephrosis, or renal | | mass. TURP defect. Penile prosthesis. Increased postvoid residual. | | Question of filling defect in the bladder. | + + + +---------+ + + | Performing | Address | City[facility] | Phone Number | | Organization | | | | + +---------+ + + | [facility] | | | | | RADIOLOGY | | | | + +---------+ + + documented in this encounter Visit Diagnoses Not on filedocumented in this encounter"
--- OUTSIDE RECORDS SUMMARY | ~2019-09-22 | XMS | Encounter Summary ---
Demographics + + + | Address | [address] | | | [place] [address] | + + + | Home Phone | | + + + | Preferred Language | Unknown | + + + | Marital Status | | + + + | Anabaptist Affiliation | 1001 | + + + | Race | Unknown | + + + | Ethnic Group | Unknown | + + + Author + + + | Author | [facility] | | | and [place] | + + + | Organization | [facility] | | | and [place] | + + + | Address | Unknown | + + + | Phone | Unavailable | + + + Support + + +---------+ + | Name | Relationship | Address | Phone | + + +---------+ + | Lisa [place] | ECON | Unknown | | + + +---------+ + Care Team Providers + +------+ + | Care Singing Waiter Or Waitress Name | Role | Phone | + +------+ + | Russell Tay MD | PCP | | + +------+ + Reason for Visit + + + | Reason | Comments | + + + | Medication Refill | | + + + Encounter Details +--------+--------+ + + + | Date | Type | Department | Care Team | Description | +--------+--------+ + + + | 01/01/ | Refill | [facility] | Jeffrey Mejia, | Medication Refill | | 2018 | | PULMONARY [address] | [address] | | | | | [place], | [place], [place] | | | | | [place] [address] | [address] | | | | | [phone] | | | +--------+--------+ + + + [...] + + +---------+ + | No | 0 Standard drinks | 0.0 | | | | or equivalent | | | + + +---------+ + [...]
--- OUTSIDE RECORDS SUMMARY | ~2019-09-22 | XMS | Encounter Summary ---
Demographics + + + | Address | [address] | | | [place] [address] | + + + | Home Phone | | + + + | Preferred Language | Unknown | + + + | Marital Status | | + + + | Protestant Affiliation | ADV | + + + | Race | White | + + + | Ethnic Group | Not or | + + + Author + + + | Author | [facility] | + + + | Organization | [facility] | + + + | Address [...] Team Providers + +------+ + | Care Supervisor Record Press Name | Role | Phone | + +------+ + PCP | Unavailable | + +------+ + Reason for Visit + + + | Reason | Comments | + + + | Refill Request | | + + + Encounter Details +--------+--------+ + + + | Date | Type | Department | Care Team | Description | +--------+--------+ + + + | 01/07/ | Refill | [facility] | Estuardo Lindo, | Refill Request | | 2015 | | [address] | [address] | | | | | [place], [place] | [place] [address] | | | | | [address] | [phone] | | | | | [phone] | | | +--------+--------+ + + + [...]
--- OUTSIDE RECORDS SUMMARY | ~2019-09-22 | XMS | Clinical Summary ---
Demographics + + + | Address | [address] | | | [place] [address] | + + + | Home Phone | | + + + | Preferred Language | Unknown | + + + | Marital Status | | + + + | Baptist Affiliation | 1001 | + + + | Race | Unknown | + + + | Ethnic Group | Unknown | + + + Author + + + | Author | [facility] | | | and [place] | + + + | Organization | [facility] | | | and [place] [...] Team Providers + +------+ + | Care Training Engineer Name | Role | Phone | + +------+ + | Chava Ibanez | PCP | | | MD | | | + +------+ + Allergies + + + +--------+ + | Active Allergy | Reactions | Severity | Noted | Comments | | | | | Date | | + + + +--------+ + | Sulfa Antibiotics | Rash | Medium | | | + + + +--------+ + | Sulfasalazine | Rash | Medium | | | + + + +--------+ + Medications + + + +---------+------+------+-------+ | Medication | Sig | Dispensed | Refills | Star | End | Statu | | | | | | t | Date | s | | | | | | Date | | | + + + +---------+------+------+-------+ | diltiazem | Take 240 mg by mouth | | 0 | 09/1 | | Activ | | (CARDIZEM CD) 240 MG | Daily. | | | 3/20 | | e | | 24 hr capsule | | | | 12 | | | + + + +---------+------+------+-------+ | esomeprazole | Take 40 mg by mouth | | 0 | 09/1 | | Activ | | (NEXIUM) 40 mg | Daily. | | | 3/20 | | e | | capsule | | | | 12 | | | + + + +---------+------+------+-------+ | Multiple | Take by mouth 2 | | 0 | 09/1 | | Activ | | Vitamins-Minerals | times daily. | | | 12/15 | | e | | (EYE VITAMINS) CAPS | | | | 12 | | | + + + +---------+------+------+-------+ | PrednisoLONE | Apply to eye. 1 | | 0 | | | Activ | | Sodium Phosphate | drop in each eye | | | | | e | | (PREDNISOL OP) | once a day | | | | | | + + + +---------+------+------+-------+ | Pyridoxine HCl | Take 100 mg by mouth | | 0 | | | Activ | | (VITAMIN B-6) 100 MG | Daily. | | | | | e | | tablet | | | | | | | + + + +---------+------+------+-------+ | potassium chloride | Take 2 tablets am, 2 | | 2 | 07/0 | | Activ | | (K-DUR) 20 mEq ER | noon, 1 bedtime | | | 9/20 | | e | | tablet | | | | 17 | | | + + + +---------+------+------+-------+ | folic acid | Take 400 mcg by | | 0 | | | Activ | | (FOLVITE) 800 MCG | mouth Daily. | | | | | e | | tablet | | | | | | | + + + +---------+------+------+-------+ | Cholecalciferol | Take 2,000 Units by | | 0 | | | Activ | | (VITAMIN D-3) 2000 | mouth Daily. | | | | | e | | units CAPS | | | | | | | + + + +---------+------+------+-------+ | Thiamine HCl | Take 250 mg by mouth | | 0 | | | Activ | | (VITAMIN B-1) 250 MG | Daily. | | | | | e | | tablet | | | | | | | + + + +---------+------+------+-------+ | cyanocobalamin | Take 1,000 mcg by | | 0 | | | Activ | | (VITAMIN B-12) 500 | mouth Daily. | | | | | e | | mcg tablet | | | | | | | + + + +---------+------+------+-------+ | doxazosin | Take 1 tablet by | | 0 | 07/2 | | Activ | | (CARDURA) 2 mg | mouth nightly. | | | 4/20 | | e | | tablet | | | | 18 | | | + + + +---------+------+------+-------+ | finasteride | Take 1 tablet by | | 0 | 05/2 | | Activ | | (PROSCAR) 5 mg | mouth Daily. | | | 4/20 | | e | | tablet | | | | 18 | | | + + + +---------+------+------+-------+ | valsartan (DIOVAN) | Take 1 tablet by | | 0 | 06/2 | | Activ | | 320 MG tablet | mouth Daily. | | | 8/20 | | e | | | | | | 18 | | | + + + +---------+------+------+-------+ | ofloxacin | Apply 1 drop to eye | | 0 | 05/1 | | Activ | | (OCUFLOX) 0.3% | 3 times daily. | | | 5/20 | | e | | ophthalmic solution | | | | 18 | | | + + + +---------+------+------+-------+ | levothyroxine | Take 175 mcg by | | 0 | | | Activ | | (SYNTHROID) 175 MCG | mouth every morning | | | | | e | | tablet | (before breakfast). | | | | | | + + + +---------+------+------+-------+ | | Take 1 tablet by | | 0 | | | Activ | | triamterene-hydrochl | mouth Daily. | | | | | e | | orothiazide | | | | | | | | (MAXZIDE) 75-50 mg | | | | | | | | per tablet | | | | | | | + + + +---------+------+------+-------+ | CARTIA XT 120 MG | Take 240 mg by mouth | | 3 | 05/3 | | Activ | | 24 hr capsule | Daily. | | | 10/17 | | e | | | | | | 19 | | | + + + +---------+------+------+-------+ | metoprolol | Take 100 mg by mouth | | 3 | / | | Activ | | succinate | Daily. | | | 06/17 | | e | | (TOPROL-XL) 100 mg | | | | 19 | | | | ER tablet | | | | | | | + + + +---------+------+------+-------+ | desmopressin | 1 spray by Nasal | | 0 | 12/ | | Activ | | (DDAVP) 10 mcg/nasal | route Daily. | | | 11/17 | | e | | spray SOLN | | | | 18 | | | + + + +---------+------+------+-------+ | azithromycin | 2 tabs now, then 1 | 6 | 0 | 07/2 | | Activ | | (ZITHROMAX) 250 mg | tab daily until gone | tablet | | 6/20 | | e | | tabletIndications: | | | | 19 | | | | Bronchiectasis with | | | | | | | | acute exacerbation | | | | | | | | (HCC) | | | | | | | + + + +---------+------+------+-------+ | budesonide | Inhale 1 puff into | 3 | 3 | / | | Activ | | (PULMICORT | the lungs Daily. | Inhaler | | 6/20 | | e | | FLEXHALER) 180 | | | | 19 | | | | mcg/puff | | | | | | | | inhalerIndications: | | | | | | | | Bronchiectasis | | | | | | | | without complication | | | | | | | | (HCC) | | | | | | | + + + +---------+------+------+-------+ | fluticasone | 1 spray by Nasal | | 1 | 04/2 | | Activ | | (FLONASE) 50 | route as needed. | | | 6/20 | | e | | mcg/nasal spray | | | | 19 | | | + + + +---------+------+------+-------+ Active Problems + + + | Problem | Noted Date | + + + | Bronchiectasis with acute exacerbation | 04/22/2019 | + + + | Bronchiectasis without complication | 04/22/2019 | + + + | Sjogren's syndrome | 12/01/2012 | + + + + + | Overview: Diagnosis by lip biopsy 2011. 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1953 | + + + + + | Overview: Right diaphragm eventration, football injury | + + + +---+ | RHINITIS, CHRONIC | | + +---+ | Obstructive sleep apnea | | + +---+ + + | Overview: Intolerant of CPAP | + + + +---+ | BRONCHIECTASIS | | + +---+ Resolved Problems + +--------+ + | Problem | Noted | Resolved | | | Date | Date | + +--------+ + | ABNORMAL CHEST XRAY | | | | | | 5 | + +--------+ + | PULMONARY FIBROSIS, POSTINFLAMMATORY | | | | | | 7 | + +--------+ + | Abnormal sputum | | | | | | 5 | + +--------+ + | BRONCHITIS, OBSTRUCTIVE CHRONIC | | | | | | 5 | + +--------+ + Immunizations + + + + | Name | Administration Dates | Next Due | + + + + | INFLUENZA 65 Y OR >, | 07/18/2016, 07/23/2015, 06/16/2014 | | | TRIVALENT HIGH-DOSE | | | + + + + | INFLUENZA PF 18 Y OR | 07/09/2015, 07/29/2013, 06/03/2012 | | | >,TRIVALENT | | | | RECOMBINANT | | | + + + + | INFLUENZA PF 65 Y OR | 10/06/2017 | | | >,TRIVALENT (FLUAD) | | | + + + + | INFLUENZA PF | 07/29/2013, 07/05/2013, 06/23/2012, | | | TRIVALENT(PED/ADOL/A | 06/03/2012, 06/29/2011, 06/26/2010 | | | TALISHA ROSA | | | + + + + | INFLUENZA QUADR | 06/05/2009, 07/21/2008 | | | W/PRES | | | | (PED/ADOL/ADULT) | | | | MULTIDOSE | | | + + + + | PNEUMOCOCCAL | 04/25/2016 | | | CONJUGATE 13-VALENT | | | | (PCV13) | | | + + + + | PNEUMOCOCCAL | 04/27/2015 | | | POLYSACCHARIDE | | | | 23-VALENT (PPSV23) | | | + + + + | ZOSTER, 1 DOSE | 06/03/2012 | | | (ZOSTAVAX) | | | + + + + Family History + + +---------+ + | Medical History | Relation | Name | Comments | + + +---------+ + | Kidney cancer | Brother | Jorge Luis | | + + +---------+ + | Stomach cancer | Brother | Jorge Luis | | + + +---------+ + | Colon cancer | Brother | Sixto | | + + +---------+ + | Diabetes | Brother | | | + + +---------+ + | Cancer | Father | | | + + +---------+ + | Heart attack | Mother | | | + + +---------+ + | Heart failure | Mother | | | + + +---------+ + | Hypertension | Mother | | | + + +---------+ + | Other (see comment) | Mother | | myocardial infarction | + + +---------+ + | Cancer | Other | | family hx of | + + +---------+ + + + + + + | Relation | Name | Status | Comments | + + + + + | Brother | Oscar | Alive | | + + + + + | Brother | Jorge Luis | | | + + + + + | Brother | Lawadamyuee | | | + + + + + | Brother | Sixto | Alive | | + + + + + | Brother | Live | Alive | | + + + + + | Brother | | | | + + + + + | Father | | | | + + + + + | Mother | | | | + + + + + | Other | | | | + + + + + | Sister | [place] | Alive | | + + + + + | Sister | Rose | Alive | | + + + + + | Sister | Geno | Alive | rheumatoid arthritis | + + + + + Social History + +-------+ +--------+------+ | Tobacco Use | Types | Packs/Day | Years | Date | | | | | Used | | + +-------+ +--------+------+ | Never Smoker | | | | | + +-------+ +--------+------+ + +---+---+---+ | Smokeless Tobacco: | | | | | Never Used | | | | + +---+---+---+ + + | Tobacco Cessation: Counseling Given: No | + + + + +---------+ + | Alcohol Use [...] recent travel history available. | + + Last Filed Vital Signs + + + + + | Vital Sign | Reading | Time Taken | Comments | + + + + + | Blood Pressure | 152/82 | 04/22/2019 12:54 PM | | | | | PDT | | + + + + + | Pulse | 54 | 04/22/2019 12:54 PM | | | | | PDT | | + + + + + | Temperature | - | - | | + + + + + | Respiratory Rate | 14 | 04/27/2015 11:14 AM | | | | | PDT | | + + + + + | Oxygen Saturation | 99% | 04/22/2019 12:54 PM | RA | | | | PDT | | + + + + + | Inhaled Oxygen | - | - | | | Concentration | | | | + + + + + | Weight | 92.8 kg (204 lb 9.4 | 04/22/2019 12:54 PM | | | | oz) | PDT | | + + + + + | Height | 181.6 cm (5' 11.5") | 04/22/2019 12:54 PM | | | | | PDT | | + + + + + | Body Mass Index | 28.14 | 04/22/2019 12:54 PM | | | | | PDT | | + + + + + Plan of Treatment + + + + + | Health Maintenance | Due Date | Last Done | Comments | + + + + + | Vaccine: | | | | | Dtap/Tdap/Td (1 - | 7 | | | | Tdap) | | | | + + + + + | Vaccine: Zoster (2 | | 06/03/2012 | | | of 3) | 2 | | | + + + + + | Adult Annual | | | | | Wellness Visit | 5 | | | + + + + + | Vaccine: Influenza | | 10/06/2017, 07/18/2016, | | | (#1) | 9 | 07/23/2015, Additional history | | | | | exists | | + + + + + | Vaccine: | Completed | 04/25/2016, 04/27/2015 | | | Pneumococcal 65+ | | | | + + + + + Results Not on filefrom Last 3 Months Insurance + +--------+ +--------+ +---------+--------+ | Payer | Benefi | Subscriber | Effect | Phone | Address | Type | | | t Plan | ID | laverne | | | | | | / | | Dates | | | | | | Group | | | | | | + +--------+ +--------+ +---------+--------+ | MEDICARE | MEDICA | [id number] | 12/28/19 | [phone] | | Medica | | | RE | | 01-Pre | 5 | | re | | | PART A | | sent | | | | | | AND B | | | | | | + +--------+ +--------+ +---------+--------+ | AARP | AARP | [id number] | 09/28/19 | [phone] | | Indemn | | | MDCR | | 17-Pre | 0 | | ity | | | SUPPL | | sent | | | | + +--------+ +--------+ +---------+--------+ + +--------+ +--------+ + + | Guarantor Name | Accoun | Relation to | Date | Phone | Billing Address | | | t Type | Patient | of | | | | | | | | | | + +--------+ +--------+ + + | Rachel Monk | Person | Self [birth year] | [address] | | | al/Fam | | 1936 | [phone] | [place] [address] | | | almaz | | | 6 (Home) | | + +--------+ +--------+ + + Advance Directives + + + + + | Type | Date Recorded | Patient | Explanation | | | | Glass Driller | | + + + + + | Power of | | | | | Yard Attendant | | | | + + + + + | Advance | | | | | Directive | | | | + + + + +
--- OUTSIDE RECORDS SUMMARY | ~2019-09-22 | XMS | Encounter Summary ---
Demographics + + + | Address | [address] | | | [place] [address] | + + + | Home Phone | | + + + | Preferred Language | Unknown | + + + | Marital Status | | + + + | Hindu Affiliation | ADV | + + + | Race | White | + + + | Ethnic Group | Not or | + + + Author + + + | Author | [facility] | + + + | Organization | [facility] | + + + | [...] Team Providers + +------+ + | Care Rivet Thrower Name | Role | Phone | + +------+ + | Chava Ibanez MD | PCP | | + +------+ + Encounter Details +--------+ + + + + | Date | Type | Department | Care Team | Description | +--------+ + + + + | 03/10/ | Document-Sc | [facility] | Estuardo Lindo, | | | 2019 | anned | [place] [address] | | | | | [place], [place] | [place], [place] [address] | | | | | [address] | [phone] | | | | | [phone] | | | +--------+ + + + [...]
--- OUTSIDE RECORDS SUMMARY | ~2019-09-22 | XMS | Encounter Summary ---
Demographics + + + | Address | [address] | | | [place] [address] | + + + | Home Phone | | + + + | Preferred Language | Unknown | + + + | Marital Status | | + + + | Orthodoxy Affiliation | ADV | + + + | Race | White | + + + | Ethnic Group | Not or | + + + Author + + + | Author | [facility] | + + + | Organization | [facility] | + + + | Address [...] Team Providers + +------+ + | Care Road Patcher Name | Role | Phone | + +------+ + | Chava Ibanez MD | PCP | | + +------+ + Encounter Details +--------+ + + + + | Date | Type | Department | Care Team | Description | +--------+ + + + + | 09/04/ | Telephone | [facility] | Estuardo Lindo, | | | 2018 | | [place] [address] | [address] | | | | | [place], [place] | [place], [place] [address] | | | | | [address] | [phone] | | | | | [phone] | | | +--------+ + + + [...]
--- OUTSIDE RECORDS SUMMARY | ~2019-09-22 | XMS | Encounter Summary ---
Demographics + + + | Address | [address] | | | [place] [address] | + + + | Home Phone | | + + + | Preferred Language | Unknown | + + + | Marital Status | | + + + | Anabaptist Affiliation | ADV | + + + | Race | White | + + + | Ethnic Group | Not or | + + + Author + + + | Author | [facility] | + + + | Organization | [facility] | + + + [...] Team Providers + +------+ + | Care Horizontal Resaw Operator Name | Role | Phone | + +------+ + PCP | Unavailable | + +------+ + Reason for Visit + + + | Reason | Comments | + + + | Appointment | f/u corina hinds/ Dr. Coyne | + + + Encounter Details +--------+ + + + + | Date | Type | Department | Care Team | Description | +--------+ + + + + | 07/09/ | Telephone | [facility] | Estuardo Lindo, | Appointment (f/u | | 2014 | | [place] [address] | corina hinds/ Dr. Coyne) | | | | [place], [place] | [place] [address] | | | | | [address] | [phone] | | | | | [phone] | | | +--------+ + + + [...]
--- OUTSIDE RECORDS SUMMARY | ~2019-09-22 | XMS | Encounter Summary ---
Demographics + + + | Address | [address] | | | [place] [address] | + + + | Home Phone | | + + + | Preferred Language | Unknown | + + + | Marital Status | | + + + | Faith Affiliation | 1001 | + + + | Race | Unknown | + + + | Ethnic Group | Unknown | + + + Author + + + | Author | [facility] | | | and [place] | + + + | Organization | [facility] | | | and [place] [...] Team Providers + +------+ + | Care Watch Parts Grinder Name | Role | Phone | + +------+ + PCP | Unavailable | + +------+ + Encounter Details +--------+ + + + + | Date | Type | Department | Care Team | Description | +--------+ + + + + | 01/08/ | Hospital | [facility] | Kade Wheat MD | | | 2000 | Encounter | MED CTR GENERIC OP | [address] | | | | | CONV DEPT [address] | [address] | | | | | [place], | [id number] | | | | | [place] [address] | | | | | | [phone] | | | +--------+ + + + [...]
--- OUTSIDE RECORDS SUMMARY | ~2019-09-22 | XMS | Encounter Summary ---
Demographics + + + | Address | [address] | | | [place] [address] | + + + | Home Phone | | + + + | Preferred Language | Unknown | + + + | Marital Status | | + + + | Hoahaoism Affiliation | ADV | + + + | Race | White | + + + | Ethnic Group | Not or | + + + Author + + + | Author | [facility] | + + + | Organization | [facility] | + + + | [...] Team Providers + +------+ + | Care Blast Furnace Keeper Helper Name | Role | Phone | + +------+ + | No Pcp Per Patient | PCP | Unavailable | + +------+ + Reason for Visit + + + | Reason | Comments | + + + | Test Results | Desmopressin follow-up, low potassium | + + + Encounter Details +--------+ + + + + | Date | Type | Department | Care Team | Description | +--------+ + + + + | 09/27/ | Telephone | [facility] | Estuardo Lindo, | Test Results | | 2017 | | [place] [address] | [place] [address] | ([address]ressin | | | | [place], [place] | [place] [address] | follow-up, low | | | | [address] | [phone] | potassium) | | | | [phone] | | | +--------+ + + + [...]
--- OUTSIDE RECORDS SUMMARY | ~2019-09-22 | XMS | Encounter Summary ---
Demographics + + + | Address | [address] | | | [place] [address] | + + + | Home Phone | | + + + | Preferred Language | Unknown | + + + | Marital Status | | + + + | Hoahaoism Affiliation | ADV | + + + | Race | White | + + + | Ethnic Group | Not or | + + + Author + + + | Author | [facility] | + + + | Organization | [facility] | + + + | Address | Unknown | + + + | Phone | Unavailable | + + + Support + + + + + | Name | Relationship | Address | Phone | + + + + + | Diana Muñoz | ECON | [place] | | + + + + + Care Team Providers + +------+ + | Care Bone Char Puller Name | Role | Phone | + +------+ + | Chava Ibanez MD | PCP | | + +------+ + Encounter Details +--------+ + + + + | Date | Type | Department | Care Team | Description | +--------+ + + + + | 12/30/ | Ancillary | Registration [id number] | Kade Frazier MD | | | 2004 | Registratio | [address] | | | | | n | [place] Mailcode: [id number] | | | | | | [place], [place] | | | | | | [address] | | | | | | [phone] | | | +--------+ + + + [...] | + +--------+ + + + | SURGICAL PATHOLOGY | Routin | 12/30/2004 | | Results for this | | | e | | | procedure are in the | | | | | | results section. | + +--------+ + + + documented in this encounter Results SURGICAL PATHOLOGY (12/30/2004) + + + + + + | Component | Value | Ref Range | Performed | Pathologist | | | | | At | Signature | + + + + + + | SURGICAL | SOURCE OF SPECIMEN:A | | [facility] | | | PATHOLOGY | Left parotid gland | | DEPARTMENT | | | | biopsy Materials | | OF | | | | Received:Received December | | PATHOLOGY | | | | 2004, from | | | | | | [facility] | | | | [facility] | | | | | | [place], [place], | | | | | | is one hematoxylin and | | | | | | eosin-stained slides | | | | | | bearingaccession number | | | | | | [id number], sublabeled II | | | | | | (left parotid gland | | | | | | biopsy), and apathology | | | | | | report indicating the | | | | | | specimen was received | | | | | | 11/26/04, | | | | | | [id number]. Final | | | | | | Pathologic | | | | | | Diagnosis:Left parotid | | | | | | gland, biopsy (outside | | | | | | slide [id number]) - | | | | | | Minute fragment of | | | | | | lymphoid and epithelial | | | | | | tissue - Negative | | | | | | for malignancy Case | | | | | | reviewed by:Vasyosef | | | | | | Chandana Hussein / | | | | | | Opal Garcia | | | | | | Chandana Daigle, Ph.D. / | | | | | | PathologistSlides will | | | | | | be returned under | | | | | | separate cover at a | | | | | | later dateT:01/03/05:lab | | | | | | I have reviewed all | | | | | | diagnostic slides and | | | | | | have edited the gross | | | | | | and/ormicroscopic | | | | | | portion of this report | | | | | | as part of my pathologic | | | | | | assessment andfinal | | | | | | diagnosis. Clinical | | | | | | History:The patient is a | | | | | | 69-year-old man with a | | | | | | history of a left | | | | | | parotid | | | | | | glandmass.Rendering | | | | | | Diagnostician: | | | | | | Isac Daigle | | | | | | | | | | | | Chandana,Ph.D.PathologistEle | | | | | | ctronically Signed | | | | | | 01/03/2005Comment: | | | | | | SOURCE OF SPECIMEN: Left | | | | | | parotid gland biopsy | | | | + + + + + + + + | Specimen | + + | | + + + + + | Narrative | Performed At | + + + | Ordered by [facility] | [facility] | | | DEPARTMENT OF | | | PATHOLOGY | + + + + + + + + | Performing | Address | City/State/Zipcode | Phone Number | | Organization | | | | + + + + + | [facility] DEPARTMENT OF | [address] | [place] [address] | | | PATHOLOGY | [address] | | | + + + + + | [place] DEPARTMENT OF | [address] | [place] [address] | | | PATHOLOGY | [address] | | | + + + + + documented in this encounter Visit Diagnoses Not on filedocumented in this encounter"
--- OUTSIDE RECORDS SUMMARY | ~2019-09-22 | XMS | Encounter Summary ---
Demographics + + + | Address | [address] | | | [place] [address] | + + + | Home Phone | | + + + | Preferred Language | Unknown | + + + | Marital Status | | + + + | Moravian Affiliation | ADV | + + + | Race | White | + + + | Ethnic Group | Not or | + + + Author + + + | Author | [facility] | + + + | Organization | [facility] | + + + [...] Team Providers + +------+ + | Care Asbestos Worker Name | Role | Phone | + [...] St | | | | | [place], [place] | [place], [place] [address] | | | | | [address] | [phone] | | | | | [phone] | | | +--------+ + + + [...]
--- OUTSIDE RECORDS SUMMARY | ~2019-09-22 | XMS | Encounter Summary ---
Demographics + + + | Address | [address] | | | [place] [address] | + + + | Home Phone | | + + + | Preferred Language | Unknown | + + + | Marital Status | | + + + | Sikh Affiliation | ADV | + + + | Race | White | + + + | Ethnic Group | Not or | + + + Author + + + | Author | [facility] | + + + | Organization | [facility] | + + + | Address | Unknown | + + + | Phone | Unavailable | + + + Support + + + + + | Name | Relationship | Address | Phone | + + + + + | Diana Muñoz | ECON | [place] | | + + + + + Care Team Providers + +------+ + | Care Fret Saw Operator Name | Role | Phone | + +------+ + | Chava Ibanez MD | PCP | | + +------+ + Encounter Details +--------+ + + + + | Date | Type | Department | Care Team | Description | +--------+ + + + + | 02/03/ | Ancillary | Registration [id number] | Kade Frazier MD | | | 2004 | Registratio | [address] | | | | | n | Yosi Mailcode: [id number] | | | | | | [place], [place] | | | | | | [address] | | | | | | [phone] | | | +--------+ + + + [...] | + +--------+ + + + | BASIC METABOLIC SET | Routin | 02/03/2005 | | Results for this | | (NA, K, CL, TCO2, | e | 4:31 PM | | procedure are in the | | BUN, CR, GLU, CA) | | PDT | | results section. | + +--------+ + + + | CBC ONLY | Routin | 02/03/2005 | | Results for this | | | e | 4:31 PM | | procedure are in the | | | | PDT | | results section. | + +--------+ + + + documented in this encounter Results CBC ONLY WITH PLATELET (02/03/2005 4:31 PM PDT) + +-------+ + + + | Component | Value | Ref Range | Performed | Pathologist | | | | | At | Signature | + +-------+ + + + | WHITE CELL | 6.8 | 4.4 - 11.0 K/cu | [facility] | | | COUNT | | mm | DEPARTMENT | | | | | | OF | | | | | | PATHOLOGY | | + +-------+ + + + | RED CELL | 5.09 | 4.20 - 5.90 | [facility] | | | COUNT | | M/cu mm | DEPARTMENT | | | | | | OF | | | | | | PATHOLOGY | | + +-------+ + + + | HEMOGLOBIN | 16.1 | 13.0 - 17.5 | [facility] | | | | | g/dL | DEPARTMENT | | | | | | OF | | | | | | PATHOLOGY | | + +-------+ + + + | HEMATOCRIT | 46.0 | 38.0 - 50.4 % | [facility] | | | | | | DEPARTMENT | | | | | | OF | | | | | | PATHOLOGY | | + +-------+ + + + | MCV | 90.3 | 80.0 - 96.0 fL | [facility] | | | | | | DEPARTMENT | | | | | | OF | | | | | | PATHOLOGY | | + +-------+ + + + | MCHC | 34.9 | 33.4 - 35.5 | [facility] | | | | | g/dL | DEPARTMENT | | | | | | OF | | | | | | PATHOLOGY | | + +-------+ + + + | RDW | 12.6 | 11.5 - 15.0 % | [facility] | | | | | | DEPARTMENT | | | | | | OF | | | | | | PATHOLOGY | | + +-------+ + + + | PLATELET | 299 | 150 - 400 K/cu | [facility] | | | COUNT | | mm | DEPARTMENT | | | | | | OF | | | | | | PATHOLOGY | | + +-------+ + + + + + | Specimen | + + | | + + + + + + + | Performing | Address | City/State/Zipcode | Phone Number | | Organization | | | | + + + + + | [facility] DEPARTMENT OF | [address] | [place] [address] | | | PATHOLOGY | [address] | | | + + + + + | [facility] DEPARTMENT OF | [address] | [place] [address] | | | PATHOLOGY | [address] | | | + + + + + BASIC METABOLIC SET (02/03/2005 4:31 PM PDT) + +-------+ + + + | Component | Value | Ref Range | Performed | Pathologist | | | | | At | Signature | + +-------+ + + + | GLUCOSE, | 98 | 65 - 110 mg/dL | [facility] | | | PLASMA | | | DEPARTMENT | | | (LAB) | | | OF | | | | | | PATHOLOGY | | + +-------+ + + + | BUN, PLASMA | 18 | 6 - 20 mg/dL | [facility] | | | (LAB) | | | DEPARTMENT | | | | | | OF | | | | | | PATHOLOGY | | + +-------+ + + + | CREATININE | 1.1 | 0.7 - 1.3 mg/dL | [facility] | | | PLASMA | | | DEPARTMENT | | | (LAB) | | | OF | | | | | | PATHOLOGY | | + +-------+ + + + | SODIUM, | 141 | 136 - 145 | [facility] | | | PLASMA | | mmol/L | DEPARTMENT | | | (LAB) | | | OF | | | | | | PATHOLOGY | | + +-------+ + + + | POTASSIUM, | 3.8 | 3.5 - 5.1 | [facility] | | | PLASMA | | mmol/L | DEPARTMENT | | | (LAB) | | | OF | | | | | | PATHOLOGY | | + +-------+ + + + | CHLORIDE, | 100 | 98 - 107 mmol/L | [facility] | | | PLASMA | | | DEPARTMENT | | | (LAB) | | | OF | | | | | | PATHOLOGY | | + +-------+ + + + | TOTAL CO2, | 29 | 23 - 29 mmol/L | [facility] | | | PLASMA | | | DEPARTMENT | | | (LAB) | | | OF | | | | | | PATHOLOGY | | + +-------+ + + + | CALCIUM, | 9.1 | 8.5 - 10.5 | [facility] | | | PLASMA | | mg/dL | DEPARTMENT | | | (LAB) | | | OF | | | | | | PATHOLOGY | | + +-------+ + + + + + | Specimen | + + | | + + + + + + + | Performing | Address | City/State/Zipcode | Phone Number | | Organization | | | | + + + + + | [facility] DEPARTMENT | [address] | [place] [address] | | | PATHOLOGY | [address] | | | + + + + + | [facility] | [address] | [place] [address] | | | PATHOLOGY | [address] | | | + + + + + documented in this encounter Visit Diagnoses Not on filedocumented in this encounter"
--- OUTSIDE RECORDS SUMMARY | ~2019-09-22 | XMS | Encounter Summary ---
Demographics + + + | Address | [address] | | | [place] [address] | + + + | Home Phone | | + + + | Preferred Language | Unknown | + + + | Marital Status | | + + + | Sabianist Affiliation | ADV | + + + | Race | White | + + + | Ethnic Group | Not or | + + + Author + + + | Author | [facility] | + + + | Organization | [facility] | + + + | [...] Team Providers + +------+ + | Care Casino Duty Manager Name | Role | Phone | + [...] St | | | | | [place], [place] | [place], [place] [address] | | | | | [address] | [phone] | | | | | [phone] | | | +--------+ + + + [...]
--- OUTSIDE RECORDS SUMMARY | ~2019-09-22 | XMS | Encounter Summary ---
Demographics + + + | Address | [address] | | | [place] [address] | + + + | Home Phone | | + + + | Preferred Language | Unknown | + + + | Marital Status | | + + + | Scientology Affiliation | 1001 | + + + | Race | Unknown | + + + | Ethnic Group | Unknown | + + + Author + + + | Author | [facility] | | | and [place] | + + + | Organization | [facility] | | | and [place] | + + + | Address | Unknown | + + + | Phone | Unavailable | + + + Support + + +---------+ + | Name | Relationship | Address | Phone | + + +---------+ + | Lisa Muir | ECON | Unknown | | + + +---------+ + Care Team Providers + +------+ + | Care Bucket Turner Name | Role | Phone | + [...] [address] | | | | | [place], | [place], [place] | | | | | [place] [address] | [address] | | | | | [phone] | | | +--------+--------+ + + + [...]
--- OUTSIDE RECORDS SUMMARY | ~2019-09-22 | XMS | Encounter Summary ---
Demographics + + + | Address | [address] | | | [place] [address] | + + + | Home Phone | | + + + | Preferred Language | Unknown | + + + | Marital Status | | + + + | Rastafari Affiliation | 1001 | + + + | Race | Unknown | + + + | Ethnic Group | Unknown | + + + Author + + + | Author | [facility] | | | and [place] | + + + | Organization | [facility] | | | and [place] [...] Team Providers + +------+ + | Care Field Consultant Name | Role | Phone | + [...] Description | +--------+--------+ + + + | 02/05/ | Refill | [facility] [place] | Jeffrey Mejia, | Medication Refill | | 2016 | | PULMONARY [address] | MD [address] | | | | | [place], | [place], [place] | | | | | [place] [address] | [address] | | | | | [phone] | | | +--------+--------+ + + + [...]
--- OUTSIDE RECORDS SUMMARY | ~2019-09-22 | XMS | Encounter Summary ---
Demographics + + + | Address | [address] | | | [place] [address] | + + + | Home Phone | | + + + | Preferred Language | Unknown | + + + | Marital Status | | + + + | Religion Affiliation | ADV | + + + | Race | White | + + + | Ethnic Group | Not or | + + + Author + + + | Author | [facility] | + + + | Organization | [facility] | + + + | Address [...] Team Providers + +------+ + | Care Java Android Developer Name | Role | Phone | + +------+ + | No Pcp Per Patient | PCP | Unavailable | + +------+ + Reason for Visit + + + | Reason | Comments | + + + | Medication | | + + + | Lab Results | Has he had his repeat PSA done? | + + + Encounter Details +--------+ + + + + | Date | Type | Department | Care Team | Description | +--------+ + + + + | 11/19/ | Telephone | [facility] | Estuardo Lindo [place], | Medication; Lab | | 2017 | | [place] [address] | [address] | Results (Has he had | | | | [place], [place] | [place] [address] | his repeat PSA | | | | [address] | [phone] | done?) | | | | [phone] | | | +--------+ + + + [...] + | Diagnosis | + + | Elevated PSA - Primary Elevated prostate specific antigen (PSA) | + + documented in this encounter"
--- OUTSIDE RECORDS SUMMARY | ~2019-09-22 | XMS | Encounter Summary ---
Demographics + + + | Address | [address] | | | [place] [address] | + + + | Home Phone | | + + + | Preferred Language | Unknown | + + + | Marital Status | | + + + | Taoism Affiliation | ADV | + + + [...] Team Providers + +------+ + | Care Llama Farmer Name | Role | Phone | + [...] | | 2017 | Only | [address] | [address] | | | | | [place], [place] | [place] [address] | | | | | [address] | [phone] | | | | | | | [...] + + documented in this encounter Results BASIC METABOLIC SET (NA, K, CL, TCO2, BUN, CR, GLU, CA) (09/22/2018 9:10 AM PST) + + + + + + | Component | Value | Ref Range | Performed | Pathologist | | | | | At | Signature | + + + + + + | SODIUM, | 135 | 132 - 143 meq/L | [facility] | | | PLASMA | | | LAB - | | | (LAB) | | | [place] | | + + + + + + | POTASSIUM, | 3.2 (L) | 3.6 - 5.1 meq/L | [facility] | | | PLASMA | | | LAB - | | | (LAB) | | | [place] | | + + + + + + | CHLORIDE, | 96 | 95 - 112 meq/L | [facility] | | | PLASMA | | | LAB - | | | (LAB) | | | [place] | | + + + + + + | CO2 | 24 | 19 - 31 meq/L | [facility] | | | | | | LAB - | | | | | | [place] | | + + + + + + | ANION GAP | 18.2 | 7 - 21 | [facility] | | | | | | LAB - | | | | | | [place] | | + + + + + + | GLUCOSE, | 126 (H) | 70 - 100 mg/dL | [facility] | | | PLASMA | | | LAB - | | | (LAB) | | | [place] | | + + + + + + | CALCIUM | 9.2 | 8.5 - 10.3 | [facility] | | | | | mg/dL | LAB - | | | | | | [place] | | + + + + + + | BUN, PLASMA | 23 | 6 - 23 mg/dL | [facility] | | | (LAB) | | | LAB - | | | | | | [place] | | + + + + + + | CREATININE | 1.16 (H) | 0.70 - 1.11 | [facility] | | | PLASMA | | mg/dL | LAB - | | | (LAB) | | | [place] | | + + + + + + | ESTIMATED | 60 | ml/min | [facility] | | | GFR | | | LAB - | | | | | | [place] | | + + + + + + | BUN/CREATIN | 19.8Comment: | 6.0 - 28.6 | [facility] | | | INE RATIO | ESTIMATED GFR | | LAB - | | | | Reference Range: | | [place] | | | | GFR = Less than 60: | | | | | | Chronic Kidney Disease, | | | | | | if found over a 3 month | | | | | | period. GFR = Less | | | | | | than 15: Kidney Failure. | | | | | | For | | | | | | Americans, multiply the | | | | | | calculated GFR by 1.21. | | | | | | GFR calculation is | | | | | | not valid for patients | | | | | | under age 18 years. | | | | | | For patients over age | | | | | | 70 please interpret | | | | | | results with caution as | | | | | | results have not | | | | | | been validated for this | | | | | | calculation method | | | | | | Please Note: | | | | | | Calcium reference range | | | | | | change as of 04/15/2018. | | | | | | | | | | + + + + + + + + | Specimen | + + | | + + + + + | Narrative | Performed At | + + + | Testing Performed at: [facility] CLIA: [id number] - [address] | [facility] | | [place] [address] | - [place] | + + + + + + + + | Performing | Address | City/State/Zipcode | Phone Number | | Organization | | | | + + + + + | [facility] - | [address] | [place] | [phone] | | [place] | | | | + + + + + documented in this encounter Visit Diagnoses Not on filedocumented in this encounter"
--- OUTSIDE RECORDS SUMMARY | ~2019-09-22 | XMS | Clinical Summary ---
Demographics + + + | Address | [address] | | | [place] [address] | + + + | Home Phone | | + + + | Preferred Language | Unknown | + + + | Marital Status | | + + + | Hindu Affiliation | 1001 | + + + | Race | Unknown | + + + | Ethnic Group | Unknown | + + + Author + + + | Author | [facility] | | | and [place] | + + + | Organization | [facility] | | | and [...] Team Providers + +------+ + | Care Assembler Installer General Name | Role | Phone | + [...] + + + + | Sister | [place] | Alive | | + + + [...] +--------+ +---------+--------+ | MEDICARE | MEDICA | [id number] | 12/28/19 | [phone] | | Medica | | | RE | | 01-Pre | 5 | | re | | | PART A | | sent | | | | | | AND B | | | | | | + +--------+ +--------+ +---------+--------+ | AARP | AARP | [id number] | 09/28/19 | [phone] | | Indemn [...] | 1936 | [phone] | [place] [address] | | | almaz | | | 6 (Home) | | + +--------+ +--------+ + + Advance Directives + + + + + | Type | Date Recorded | Patient | Explanation | | | | Freight Air Brake Fitter | | + + + + + | Power of | | | | | Homeowner Association Manager | | | | + + + + + | Advance | | | | | Directive | | | | + + + + +
--- OUTSIDE RECORDS SUMMARY | ~2019-09-22 | XMS | Encounter Summary ---
Demographics + + + | Address | [address] | | | [place] [address] | + + + | Home Phone | | + + + | Preferred Language | Unknown | + + + | Marital Status | | + + + | Jew Affiliation | ADV | + + + [...] Team Providers + +------+ + | Care Bonsai Culturist Name | Role | Phone | + +------+ + | No Pcp Per Patient | PCP | Unavailable | + +------+ + Encounter Details +--------+ + + + + | Date | Type | Department | Care Team | Description | +--------+ + + + + | 02/24/ | Results | [facility] [address] | Estuardo Lindo, | | | 2017 | Only | [address] | [address] | | | | | [place], [place] | [place] [address] | | | | | [address] | [phone] | | | | | | | [...] | + +--------+ + + + | PSA, TOTAL | Routin | 02/24/2018 | | Results for this | | MONITORING | e | 11:10 AM | | procedure are in the | | | | PDT | | results section. | + +--------+ + + + documented in this encounter Results PSA, TOTAL MONITORING (02/24/2018 11:10 AM PDT) + + + + + + | Component | Value | Ref Range | Performed | Pathologist | | | | | At | Signature | + + + + + + | TOTAL PSA | 3.54Comment: The Ed | 0.0 - 4.0 ng/ml | [facility] | | | | e601 PSA | | LAB - | | | | electrochemiluminescent | | [place] | | | | immunoassay is the test | | | | | | methodology used. | | | | | | Results obtained with | | | | | | different assay methods | | | | | | or kits cannot be | | | | | | used interchangeably. | | | | | | The Ed e601 PSA | | | | | | method is approved for | | | | | | use as an aid in | | | | | | the detection of | | | | | | prostate cancer when | | | | | | used in conjunction with | | | | | | a digital rectal | | | | | | exam in men age 50 and | | | | | | older. The Ed e601 | | | | | | PSA is also | | | | | | indicated for the serial | | | | | | measurement of PSA to | | | | | | aid in the prognosis and | | | | | | management of | | | | | | prostate cancer | | | | | | patients. Elevated PSA | | | | | | concentrations can only | | | | | | suggest the | | | | | | presence of prostate | | | | | | cancer until biopsy is | | | | | | performed. PSA | | | | | | concentrations can also | | | | | | be elevated in benign | | | | | | prostatic hyperplasia or | | | | | | inflammatory | | | | | | conditions of the | | | | | | prostate. PSA is | | | | | | generally not elevated | | | | | | in healthy men or | | | | | | men with non-prostatic | | | | | | carcinoma. | | | | | | Biotin in specimens | | | | | | taken from patients on | | | | | | high-dose biotin therapy | | | | | | or supplements | | | | | | may intefere with this | | | | | | test and cause | | | | | | inaccurate test results. | | | | | | It is recommended | | | | | | that for patients | | | | | | receiving therapy with | | | | | | high biotin doses (> | | | | | | 5 mg/day), no | | | | | | laboratory test specimen | | | | | | should be collected | | | | | | until at least 8 | | | | | | hours after the last | | | | | | biotin administration. | | | | | | | | | | + + + + + + + + | Specimen | + + | | + + + + + | Narrative | Performed At | + + + | Testing Performed at: [facility] CLIA: [id number] - [id number] | [facility] | | [place] [address] | - [place] | + + + + + + + + | Performing | Address | City/State/Zipcode | Phone Number | | Organization | | | | + + + + + | [facility] - | [address] | [place] | [phone] | | [place] | | | | + + + + + documented in this encounter Visit Diagnoses Not on filedocumented in this encounter"
--- OUTSIDE RECORDS SUMMARY | ~2019-09-22 | XMS | Encounter Summary ---
Demographics + + + | Address | [address] | | | [place] [address] | + + + | Home Phone | | + + + | Preferred Language | Unknown | + + + | Marital Status | | + + + | Episcopal Affiliation | ADV | + + + [...] Team Providers + +------+ + | Care Log Grader Name | Role | Phone | + [...] | +--------+ + + + + | 10/27/ | Telephone | [facility] | Estuardo Lindo, | Appointment | | 2017 | | [place] [address] | [address] | | | | | [place], [place] | [place], [place] [address] | | | | | [address] | [phone] | | | | | [phone] | | | +--------+ + + + [...]
--- OUTSIDE RECORDS SUMMARY | ~2019-09-22 | XMS | Encounter Summary ---
Demographics + + + | Address | [address] | | | [place] [address] | + + + | Home Phone | | + + + | Preferred Language | Unknown | + + + | Marital Status | | + + + | Restorationist Affiliation | ADV | + + + | Race | White | + + + | Ethnic Group | Not or | + + + Author + + + | Author | [facility] | + + + | Organization | [facility] | + + + | Address [...] Providers + +------+ + | Care Supervisor Drilling And Shooting Name | Role | Phone | + +------+ + | No Pcp Per Patient | PCP | Unavailable | + +------+ + Encounter Details +--------+ + + + + | Date | Type | Department | Care Team | Description | +--------+ + + + + | 09/03/ | Results | [facility] | Estuardo Lindo, | | | 2017 | Only | [address] | [address] | | | | | [place], [place] | [place] [address] | | | | | [address] | [phone] | | | | | | | [...] + | PSA, TOTAL | Routin | 09/03/2018 | | Results for this | | MONITORING | e | 7:50 AM | | procedure are in the | | | | PST | | results section. | + +--------+ + + + documented in this encounter Results PSA, TOTAL MONITORING (09/03/2018 7:50 AM PST) + + + + + + | Component | Value | Ref Range | Performed | Pathologist | | | | | At | Signature | + + + + + + | TOTAL PSA | 3.58Comment: The Ed | 0.0 - 4.0 ng/ml [...] Testing Performed at: [facility] CLIA: [id number] - 9293 | [facility] | | [place] [address] | - [place] | + + + + + + + + | Performing | Address | City/State/Zipcode | Phone Number | | Organization | | | | + + + + + | [facility] - | [address] | [place] | [phone] | | [place] | | | | + + + + + documented in this encounter Visit Diagnoses Not on filedocumented in this encounter"
--- OUTSIDE RECORDS SUMMARY | ~2019-09-22 | XMS | Encounter Summary ---
Demographics + + + | Address | [address] | | | [place] [address] | + + + | Home Phone | | + + + | Preferred Language | Unknown | + + + | Marital Status | | + + + | Buddhism Affiliation | 1001 | + + + | Race | Unknown | + + + | Ethnic Group | Unknown | + + + Author + + + | Author | [facility] | | | and [place] | + + + | Organization | [facility] | | | and [...] Team Providers + +------+ + | Care Maintenance Job Titles Name | Role | Phone | + [...] Description | +--------+--------+ + + + | 07/02/ | Refill | [facility] [place] | Jeffrey Mejia, | Medication Refill | | 2015 | | PULMONARY [address] | MD [address] | | | | | [place], | [place], [place] | | | | | [place] [address] | [address] | | | | | [phone] | | | +--------+--------+ + + + [...]
--- OUTSIDE RECORDS SUMMARY | ~2019-09-22 | XMS | Encounter Summary ---
Demographics + + + | Address | [address] | | | [place] [address] | + + + | Home Phone | | + + + | Preferred Language | Unknown | + + + | Marital Status | | + + + | Hoahaoism Affiliation | 1001 | + + + | Race | Unknown | + + + | Ethnic Group | Unknown | + + + Author + + + | Author | [facility] | | | and [place]jay[place] | + + + | Organization | [facility] | | | and [place] [...] Team Providers + +------+ + | Care Drag Sawyer Name | Role | Phone | + +------+ + | Chava Ibanez | PCP | | | MD | | | + +------+ + Reason for Referral Evaluate & Treat (Routine) +--------+ + + + + + | Status | Reason | Specialty | Diagnoses / | Referred By | Referred To | | | | | Procedures | Contact | Contact | +--------+ + + + + + | Closed | Specialty | Gastroenterol | Diagnoses | [facility], | [facility], | | | Services | ogy | Hemorrhage | Kade Davila MD | Kade Davila MD | | | Required | | of rectum | [address], | | | | | and anus | [address], [place] | [place] [address] | | | | | Personal | [address] [place] | [place], | | | | | history of | [place], [place] | [place] [address] | | | | | colonic | [address] | Phone: | | | | | polyps | Phone: | [phone] | | | | | Reflux | [phone] | Fax: | | | | | esophagitis | Fax: | [phone] | | | | | Procedures | [phone] | | | | | | UT UPPER GI | | | | | | | | | | | | | | ENDOSCOPY,DI | | | | | | | AGNOSIS UT | | | | | | | UPPER GI | | | | | | | ENDOSCOPY,BI | | | | | | | OPSY UT | | | | | | | COLONOSCOPY, | | | | | | | DIAGNOSTIC | | | | | | | UT | | | | | | | COLONOSCOPY, | | | | | | | BIOPSY | | | +--------+ + + + + + Reason for Visit + + + | Reason | Comments | + + + | Colon Cancer | | | Screening | | + + + | Colonoscopy | | + + + | Colon Polyps | | + + + Encounter Details +--------+---------+ + + + | Date | Type | Department | Care Team | Description | +--------+---------+ + + + | 05/05/ | Office | [facility] | Kade Wheat MD | Hemorrhage of rectum | | 2012 | Visit | GASTROENTEROLOGY | [address], [place] | and anus (Primary | | | | [address] [place] | [address] [place] | Dx); Personal | | | | [address] [place] | [address] | history of colonic | | | | [phone] | | polyps; Reflux | | | | [phone] | | esophagitis | +--------+---------+ + + + Social History + +-------+ [...] + + documented as of this encounter Last Filed Vital Signs + + + + + | Vital Sign | Reading | Time Taken | Comments | + + + + + | Blood Pressure | 146/82 | 05/05/2013 3:36 PM | | | | | PDT | | + + + + + | Pulse | 72 | 05/05/2013 3:36 PM | | | | | PDT | | + + + + + | Temperature | - | - | | + + + + + | Respiratory Rate | - | - | | + + + + + | Oxygen Saturation | - | - | | + + + + + | Inhaled Oxygen | - | - | | | Concentration | | | | + + + + + | Weight | 89.8 kg (198 lb) | 05/05/2013 3:36 PM | | | | | PDT | | + + + + + | Height | 181.6 cm (5' 11.5") | 05/05/2013 3:36 PM | | | | | PDT | | + + + + + | Body Mass Index | 27.23 | 05/05/2013 3:36 PM | | | | | PDT | | + + + + + documented in this encounter Progress Notes Kade Wheat MD - 05/05/2013 4:25 PM PDT Subjective: Patient ID: Rachel Monk is a 77 y.o. male. HPI Comments: I 77-year-old male with past history of adenomatous polyps with atypia return s to the office. He has noticed some change in bowel pattern with decrease in diameter the stool. He was constipated about a 2 weeks ago. By constipation he means that he had hard d ry stools and straining at the stool. This morning while bathing he noticed it palpable pro trusion around the anal canal which was tender. He denies any past history of hemorrhoids b ut did have a painful back defecation with bleeding 2 weeks ago. There is no family history : Cancer or polyps has no personal history of prostate or lung cancer. 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 Last upper endoscopy 5 years ago was negative for Palmer's metaplasia. He denies dysphasia or Odont aphasia continues on Ne xium therapy does have occasional hoarse voice denies spontaneous regurgitation nocturnally or aspiration symptoms. 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 obstructive sleep apnea but intolerant to CPAP chronic rhinitis history renal calculi hypertension Sjogren's syndrome and hypothyr oidism Filed Vitals: 05/05/13 1536 BP: 146/82 Pulse: 72 PainSc: 2 PainLoc: Rectum Allergies Allergen Reactions Sulfa Antibiotics Past Medical History Diagnosis Date Thyroid carcinoma resected Chronic sinusitis Diphtheria age of 6 History of scarlet fever Hypertension GERD (gastroesophageal reflux disease) Prediabetes Sjogren's syndrome Xerostomia Other iatrogenic hypothyroidism Intrinsic asthma, unspecified Sprain and strain of unspecified site of hip and thigh Thoracic or lumbosacral neuritis or radiculitis, unspecified Tietze's disease Disturbance of salivary secretion Other abnormal glucose Rosacea Benign paroxysmal positional vertigo Colon polyp Past Surgical History Procedure Date Thyroidectomy Sinus surgery x2 Tonsillectomy Appendectomy Cystoscopic surgery Colonoscopy Cataract removal Salivary gland surgery Hernia repair Tumor excision left ear Family History Problem Relation Age of Onset Other (See Comment) Mother myocardial infarction Heart attack Mother Hypertension Mother Heart failure Mother Cancer Father Cancer family hx of Diabetes Brother Kidney cancer Brother Stomach cancer Brother Colon cancer Brother History Social History Marital Status: Spouse Name: N/A Number of Children: N/A Years of Education: N/A Social History Main Topics Smoking status: Never Smoker Smokeless tobacco: Never Used Alcohol Use: No Drug Use: No Sexually Active: None Other Topics Concern None Social History Narrative None } Review of Systems Constitutional: Negative. HENT: Positive for hearing loss, voice change and tinnitus. Eyes: Positive for pain. Respiratory: Negative. Cardiovascular: Negative. Gastrointestinal: Negative. Genitourinary: Positive for enuresis. Musculoskeletal: Positive for back pain. Neurological: Negative. Psychiatric/Behavioral: Negative. Objective: Physical Exam Constitutional: He is oriented to person, place, and time. He appears well-developed and we ll-nourished. No distress. HENT: Head: Normocephalic and atraumatic. Right Ear: External ear normal. Left Ear: External ear normal. Nose: Nose normal. Mouth/Throat: Oropharynx is clear and moist. No oropharyngeal exudate. Eyes: Conjunctivae normal and EOM are normal. Pupils are equal, round, and reactive to ligh t. Right eye exhibits no discharge. Left eye exhibits no discharge. No scleral icterus. Neck: Normal range of motion. Neck supple. No tracheal deviation present. Cardiovascular: Normal rate, regular rhythm, normal heart sounds and intact distal pulses. Exam reveals no gallop and no friction rub. No murmur heard. Pulmonary/Chest: Effort normal and breath sounds normal. No stridor. No respiratory distres s. He has no wheezes. He has no rales. He exhibits no tenderness. Abdominal: Soft. Bowel sounds are normal. He exhibits no distension and no mass. There is n o tenderness. There is no rebound and no guarding. Examination of the rectal area shows a large protruding hemorrhoid which is painful to palpation at the 9:00 position. Rectal exam was otherwise not done but will be completed a t the time of his colonoscopy Musculoskeletal: Normal range of motion. He exhibits no edema and no tenderness. Lymphadenopathy: He has no cervical adenopathy. Neurological: He is alert and oriented to person, place, and time. No cranial nerve deficit . He exhibits normal muscle tone. Coordination normal. Skin: Skin is warm and dry. No rash noted. He is not diaphoretic. No erythema. No pallor. Psychiatric: He has a normal mood and affect. His behavior is normal. Judgment and thought content normal. Assessment: Change in bowel pattern probably iatrogenic associated with change in diet History of colonic polyp appropriate candidate for followup Rectal bleeding probably secondary to anal canal pathology with thrombosed hemorrhoid juan ntly present next number chronic obstructive pulmonary disease with sleep apnea appropriate candidate for propofol sedation Plan: Benefits and risks of the procedures upper endoscopy colonoscopy were explained to the pratik ent he concurs. He'll be scheduled as an outpatient. With respect to his hemorrhoids he is told to try some preparation H. and sitz baths and information was given to him with respec t to the same for symptomatic relief and reduction of the hemorrhoid. If that is not succes sful he is a candidate for hydrocortisone suppositories. Portions of this report were transcribed using voice recognition software. Every effort wa s made to ensure accuracy; however, inadvertent computerized non food receiving clerk errors may be pre sent. documented in this enc ounter Plan of Treatment + + +--------+ + + | Name | Type | Priori | Associated Diagnoses | Order Schedule | | | | ty | | | + + +--------+ + + | Ambulatory referral | Outpatient | Routin | Hemorrhage of | Expected: | | to Gastroenterology | Referral | e | rectum and anus | 05/19/2013, Expires: | | | | | Personal history of | 05/06/2014 | | | | | colonic polyps | | | | | | Reflux esophagitis | | + + +--------+ + + documented as of this encounter Visit Diagnoses + + | Diagnosis | + + | Hemorrhage of rectum and anus - Primary | + + | Personal history of colonic polyps | + + | Reflux esophagitis | + + documented in this encounter
--- OUTSIDE RECORDS SUMMARY | ~2019-09-22 | XMS | Encounter Summary ---
Demographics + + + | Address | [address] | | | [place] [address] | + + + | Home Phone | | + + + | Preferred Language | Unknown | + + + | Marital Status | | + + + | Voodoo Affiliation | ADV | + + + [...] Team Providers + +------+ + | Care Weapons Mechanic Name | Role | Phone | + +------+ + | Chava Ibanez MD | PCP | | + +------+ + Encounter Details +--------+ + + + + | Date | Type | Department | Care Team | Description | +--------+ + + + + | 03/10/ | Results | [facility] [address] | Estuardo Lindo, | | | 2019 | Only | [address] | [address] | | | | [place], [place] | [place] [address] | | | | | [address] | [phone] | | | | | | | [...] + + documented as of this encounter Progress Notes Estuardo Lindo MD - 03/10/2019 11:59 PM PDTPlease call and let him know that his sodium looks good. He can continue his desmopressin at present dose. Unfortunately his kidney fun ction is not as good as it has been this test. Please make sure that the test results get t o his primary physician, and asked her to have the same test repeated in about a week with yaya moya sent to me ([facility]). I think that the kidney function may be a side effect some other m edication he is taking or may have to do with his hydration, but if it does not improve in t he next test, his primary physician will need to check into this and we may have to stop the desmopressin document ed in this encounter Plan of Treatment Not on filedocumented as of this encounter Procedures + +--------+ + + + | Procedure Name | Priori | Date/Time | Associated Diagnosis | Comments | | | ty | | | | + +--------+ + + + | BASIC METABOLIC SET | Routin | 03/10/2019 | | Results for this | | (NA, K, CL, TCO2, | e | 9:45 AM | | procedure are in the | | BUN, CR, GLU, CA) | | PDT | | results section. | + +--------+ + + + documented in this encounter Results BASIC METABOLIC SET (NA, K, CL, TCO2, BUN, CR, GLU, CA) (03/10/2019 9:45 AM PDT) + + + + + + | Component | Value | Ref Range | Performed | Pathologist | | | | | At | Signature | + + + + + + | SODIUM, | 139 | 132 - 143 meq/L | [facility] | | | PLAS[facility] | | | LAB - | | | (LAB) | | | [place] | | + + + + + + | POTASSIUM, | 3.9 | 3.6 - 5.1 meq/L | [facility] | | | PLASMA | | | LAB - | | | (LAB) | | | [place] | | + + + + + + | CHLORIDE, | 102 | 95 - 112 meq/L | [facility] | | | PLASMA | | | LAB - | | | (LAB) | | | [place] | | + + + + + + | CO2 | 25 | 19 - 31 meq/L | [facility] | | | | | | LAB - | | | | | | [place] | | + + + + + + | ANION GAP | 15.9 | 7 - 21 | [facility] | | | | | | LAB - | | | | | | [place] | | + + + + + + | GLUCOSE, | 183 (H) | 70 - 100 mg/dL | [facility] | | | PLASMA | | | LAB - | | | (LAB) | | | [place] | | + + + + + + | CALCIUM | 9.1 | 8.5 - 10.3 | [facility] | | | | | mg/dL | LAB - | | | | | | [place] | | + + + + + + | BUN, PLASMA | 24 (H) | 6 - 23 mg/dL | [facility] | | | (LAB) | | | LAB - | | | | | | [place] | | + + + + + + | CREATININE | 1.60 (H) | 0.70 - 1.11 | [facility] | | | PLASMA | | mg/dL | LAB - | | | (LAB) | | | [place] | | + + + + + + | ESTIMATED | 41 (L) | ml/min | [facility] | | | GFR | | | LAB - | | | | | | [place] | | + + + + + + | BUN/CREATIN | 15.0Comment: | 6.0 - 28.6 | [facility] | [...] Testing Performed at: [address] [place] [address] CLIA: [id number] - [address] | [facility] | | [place] [address] | - [place] | + + + + + + + + | Performing | Address | City/State/Zipcode | Phone Number | | Organization | | | | + + + + + | [facility] - | [address], [place] | [phone] | | [place] | | | | + + + + + documented in this encounter Visit Diagnoses Not on filedocumented in this encounter"
--- OUTSIDE RECORDS SUMMARY | ~2019-09-22 | XMS | Encounter Summary ---
Demographics + + + | Address | [address] | | | [place] [address] | + + + | Home Phone | | + + + | Preferred Language | Unknown | + + + | Marital Status | | + + + | Mandaeism Affiliation | 1001 | + + + | Race | Unknown | + + + | Ethnic Group | Unknown | + + + Author + + + | Author | [facility] | | | and [place] | + + + | Organization | [facility] | | | and [place] [...] Team Providers + +------+ + | Care Materials Clerk Name | Role | Phone | + +------+ + PCP | Unavailable | + +------+ + Encounter Details +--------+ + + + + | Date | Type | Department | Care Team | Description | +--------+ + + + + | 11/26/ | Hospital | [facility] | Parviz Holcomb, | | | 2004 | Encounter | MED CTR XRAY [address] | MD [address] | | | | | [place] | [place] | | | | | [place] [address] | [id number] | | | | | [phone] | | | +--------+ + + + [...]
--- OUTSIDE RECORDS SUMMARY | ~2019-09-22 | XMS | Encounter Summary ---
Demographics + + + | Address | [address] | | | [place] [address] | + + + | Home Phone | | + + + | Preferred Language | Unknown | + + + | Marital Status | | + + + | Yazidi Affiliation | ADV | + + + [...] Team Providers + +------+ + | Care Skein Yard Drier Name | Role | Phone | + +------+ + PCP | Unavailable | + +------+ + Encounter Details +--------+ + + + + | Date | Type | Department | Care Team | Description | +--------+ + + + + | 11/03/ | Document-Sc | [facility] | Estuardo Lindo, | | | 2018 | anndoni | [place] [address] | [address] | | | | | St [place], [place] | [place], [place] [address] | | | | | [address] | [phone] | | | | | [phone] | | | +--------+ + + + [...]
--- OUTSIDE RECORDS SUMMARY | ~2019-09-22 | XMS | Encounter Summary ---
Demographics + + + | Address | [address] | | | [place] [address] | + + + | Home Phone | | + + + | Preferred Language | Unknown | + + + | Marital Status | | + + + | Yazidi Affiliation | ADV | + + + | Race | White | + + + | Ethnic Group | Not or | + + + Author + + + | Organization | Unknown | + + + | Address | Unknown | + + + | Phone | Unavailable | + + + Support + + + + + | Name | Relationship | Address | Phone | + + + + + | Diana Muñoz | ECON | [place] | | + + + + + Care Team Providers + +------+ + | Care Business Liaison Officer Name | Role | Phone | + +------+ + PCP | Unavailable | + +------+ + Encounter Details +--------+ + + + + | Date | Type | Department | Care Team | Description | +--------+ + + + + | 05/10/ | [facility] | | Letter, Clinic | Letters | | 2005 | scribed | | | | +--------+ + + [...] documented as of this encounter Progress Notes Interface, Top Dyeing Machine Loader In - 04/27/2005 11:34 AM PDT [id number] 02/03/2005 02/04/2005 [id number] LINCOLN Zheng [place] [address] [place] [address] or Department of Otolaryngology - PV01 February 05, 2005 Parviz Holcomb M.D. [facility] [address] [place] [address] RE: GURWINDER STARK MR #: [id number] Dear Dr. Holcomb: I operated Mr. 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 I operated him with my senior resident, Dr. Waylon Boyce who was present for the entire case. We performed a left total parotidectomy and did use the facial nerve monitor for 2 hours and 15 minutes. As predicted by the preoperative CT, the mass was within the deep lobe displacing the nerve and the retromandibular vein forward over at surface. 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 It will be interesting to see what the final pathology shows. The gland itself was quite inflammatory which made for rather tedious dissection particularly adjacent to the nodule itself. However, I was able to displace the mass as part of the parotid out from underneath the nerve without having to move the nerve itself. He has normal facial nerve function postoperatively. I will see him back in the next couple of days and review the final pathology. I am very grateful to you to send a case like this to us. I think the tumors in the deep lobe of the parotid are particular surgical challenge in the principles of their management to have significant teaching benefit. Thank you again. Yours Sincerely, Kade Frazier M.D., Ph.D. Professor - Head and Neck Surgery Department of Otolaryngology/Head and Neck Surgery [facility] [id number] FAX [phone] email - [email or web address] ROSI / [id number] / [id number] / [id number] / documented i n this encounter Plan of Treatment Not on filedocumented as of this encounter Visit Diagnoses Not on filedocumented in this encounter"
--- OUTSIDE RECORDS SUMMARY | ~2019-09-22 | XMS | Encounter Summary ---
Demographics + + + | Address | [address] | | | [place] [address] | + + + | Home Phone | | + + + | Preferred Language | Unknown | + + + | Marital Status | | + + + | Faith Affiliation | 1001 | + + + | Race | Unknown | + + + | Ethnic Group | Unknown | + + + Author + + + | Author | [facility] | | | and [place] | + + + | Organization | [facility] | | | and [place] | + + + | Address | Unknown | + + + | Phone | Unavailable | + + + Support + + +---------+ + | Name | Relationship | Address | Phone | + + +---------+ + | Lisa [place] | ECON | Unknown | | + + +---------+ + Care Team Providers + +------+ + | Care Run Boat Operator Name | Role | Phone | + +------+ + PCP | Unavailable | + +------+ + Encounter Details +--------+ + + + + | Date | Type | Department | Care Team | Description | +--------+ + + + + | 06/09/ | Abstract | [facility] | DATA MIGRATION SUSI | | | 2011 | | Conversion Location | SR | | | | | [phone] | | | +--------+ + + + [...] + + + | Blood Pressure | 140/66 | 11/07/2011 12:00 AM | | | | | PST | | + + + + + | Pulse | - | - | | + [...] + + + + | Weight | 88.9 kg (196 lb) | 11/07/2011 12:00 AM | | | | | PST | | + + + + + | Height | 182.9 cm (6') | 10/10/2009 12:00 AM | | | | | PST | | + + + + + | Body Mass Index | 26.58 | 10/10/2009 12:00 AM | | | | | PST | | + + + + + documented in this encounter Plan of Treatment Not on filedocumented as of this encounter Visit Diagnoses Not on filedocumented in this encounter"
--- OUTSIDE RECORDS SUMMARY | ~2019-09-22 | XMS | Encounter Summary ---
Demographics + + + | Address | [address] | | | [place] [address] | + + + | Home Phone | | + + + | Preferred Language | Unknown | + + + | Marital Status | | + + + | Samaritan Affiliation | 1001 | + + + | Race | Unknown | + + + | Ethnic Group | Unknown | + + + Author + + + | Author | [facility] | | | and Jayjayana | + + + | Organization | [facility] [...] Team Providers + +------+ + | Care Health Worker Name | Role | Phone | + +------+ + | Cahva Ibanez | PCP | | | MD | | | + +------+ + Reason for Visit +--------+ + | Reason | Comments | +--------+ + | Other | Est. care Bronchiectasis | +--------+ + Encounter Details +--------+---------+ + + + | Date | Type | Department | Care Team | Description | +--------+---------+ + + + | 04/27/ | Office | [facility] | Jeffrey Mejia, | BRONCHIECTASIS | | 2015 | Visit | PULMONARY [address] | MD [address] | (Primary Dx); | | | | [place], | [place], [place] | Obstructive sleep | | | | [place] [address] | [phone] | apnea; Need for | | | | [phone] | | pneumococcal | | | | | | vaccination | +--------+---------+ + + + Social History [...] + + + | Blood Pressure | 148/80 | 04/27/2015 11:14 AM | | | | | PDT | | + + + + + | Pulse | 73 | 04/27/2015 11:14 AM | | | | | PDT | | + + + + + | Temperature | - | - | | + + + + + | Respiratory Rate | 14 | 04/27/2015 11:14 AM | | | | | PDT | | + + + + + | Oxygen Saturation | 98% | 04/27/2015 11:14 AM | room air | | | | PDT | | + + + + + | Inhaled Oxygen | - | - | | | Concentration | | | | + + + + + | Weight | 99.3 kg (219 lb) | 04/27/2015 11:14 AM | | | | | PDT | | + + + + + | Height | 181.6 cm (5' 11.5") | 04/27/2015 11:14 AM | | | | | PDT | | + + + + + | Body Mass Index | 30.12 | 04/27/2015 11:14 AM | | | | | PDT | | + + + + + documented in this encounter Patient Instructions Patient Instructions Jeffrey Mejia MD - 04/27/2015 11:46 AM PDT FluVaccines for Adults The flu (influenza) is caused by a virus that is easily spread. A fluvaccine protects you and othersfrom the flu. It s best to get a flu shot each fall, as soon as the vaccine i s available in your area. You can get it at your health care provider s office or a health clinic. Drugstores, senior centers, and workplaces often offer flu shots, too. If you want to know if your providerhas the flu vaccine available, or if you have other questions, ask your healthcare provider. Flu facts The flu shot will not give you the flu. The flu can be dangerous even life-threatening. Every year, about 36,000 people of complications from the flu. The flu is caused by a virus. It can t be treated with antibiotics. Influenza is not the same as stomach flu, the 24-hour bug that causes vomiting and diarrhea. This is most likely due to a GI (gastrointestinal) infection not the flu. You need to get a flu shot each year. Flu symptoms Flu symptoms tend to come on quickly. Fever, headache, fatigue, cough, sore throat, runny n ose, and muscle aches are symptoms of the flu. Upset stomach and vomiting are not common for adults. Some symptoms, such as fatigue and cough, may last a few weeks. How a flu shot protects you There are many strains (types) of theflu virus. Medical experts predict which strains are most likely to make people sick each year. Flu shots are made from these strains. When you get a flu vaccine, inactivated ( killed ) or very mild flu viruses are injected into you r body or sprayed into your nose. These cannot give you the flu. But they do prompt your bod y to make antibodies to fight these flu strains. If you re exposed to the same strains lat er in the flu season, the antibodies will fight off the germs. Recommendations for the flu vaccine The CDC recommends that infants over the age of 6 months and all children and adults should get flu shots every year. Some people are at an increased risk of developing serious complications from the flu. It i s extremely important that these people get the vaccine. They include those with: Long-term heart and lung conditions Other serious medical conditions Endocrine disorders, like diabetes Kidney or liver disorders Weakened immune systems from disease of medical treatment; for example, those with HIV o r AIDS or taking long-term steroids or medications to treat cancer Blood disorders, such as sickle cell disease It is also very important that others that have an increased risk of being exposed to the f dustin or are around people with increased risk of complications get the vaccine. They are: Health care providers and other staff that provide care in hospitals, nursing homes, [facility], and other facilities Household members, including children, of people in high-risk groups Types of flu vaccines The flu vaccine is available as a shot and as a nasal spray. Your health care provider will determine which vaccine is right for you. The shot is available in a few different forms. There is a high-dose vaccine for those o farida 65 and a vaccine for those with egg allergies. It is safe for most people. Talk with you r provider if you have had: A severe allergic reaction to a previous flu vaccine Guillain-Kossuth syndrome (a severe paralyzing condition) The nasal spray is recommended for people from 2 to 49 years old. It should not be given to adults who: Are Have weakened immune systems Have egg allergies Will be in close contact with someone with a weakened immune system Have taken antiviral medication in the past 2 days 4512-6604 [employer]. [address] [place] [address]. All righ ts reserved. This information is not intended as a substitute for professional medical care. Always follow your healthcare professional's instructions. documented in this encounter Progress Notes Jeffrey Mejia MD - 04/27/2015 11:33 AM PDTFormatting of this note might be different f rom the original. Pulmonary Follow Up 04/27/2015 [facility] Rachel Monk is a 79 y.o. male patient of Chava Ibanez MD here today for follo w up of bronchiectasis. It has been 15 month since our last clinic appointment. At their last visit, Dr. Wong planned to follow up in 12 months. Since the last visit he feels like their symptoms are stable. They have have not had any acute illnesses. He reports 0 bronchiectasis exacerbat ions requiring antibiotics. They are currently are not on a maintenance regimen. Currently they are able to walk 2-3 miles at their own pace on level ground before becoming symptomatic. They are not exercising regularly. They are not enrolled in cardiac/pulmonary rehabilitation or other physical therapy. He are not practicing bronchial hygiene behaviors . He does cough chronically, and does not produce mucous. They have not had hemoptysis since our last appointment. He has not been evaluated for nocturnal oxygen. He does not use a bronchodilator. He does not had symptoms of heartburn or acid reflux. They have not had recent or symptoms of nasal congestion, runny nose or post nasal drip. Past Medical History Past Medical History Diagnosis Date Thyroid carcinoma (HCC) resected Chronic sinusitis Diphtheria age of 6 History of scarlet fever Hypertension GERD (gastroesophageal reflux disease) Prediabetes Sjogren's syndrome (HCC) Xerostomia Other iatrogenic hypothyroidism Intrinsic asthma, unspecified Sprain and strain of unspecified site of hip and thigh Thoracic or lumbosacral neuritis or radiculitis, unspecified Tietze's disease Disturbance of salivary secretion Other abnormal glucose Rosacea Benign paroxysmal positional vertigo Colon polyp colon 2012 normal, no f/u needed ELAN (obstructive sleep apnea) September 2004: RDI 17.6, 89% intolerant of CPAP Allergies: Allergies Allergen Reactions Sulfa Antibiotics Medications: Current outpatient prescriptions: budesonide (RHINOCORT AQUA) 32 mcg/nasal spray nasal spra y, 1 spray by Nasal route Daily., Disp: , Rfl: ; diltiazem (CARDIZEM CD) 240 MG 24 hr capsu le, Take 240 mg by mouth Daily., Disp: , Rfl: ; esomeprazole (NEXIUM) 40 mg capsule, Take 4 0 mg by mouth Daily., Disp: , Rfl: ; finasteride (PROSCAR) 5 mg tablet, Take 5 mg by mouth Daily., Disp: , Rfl: Flaxseed, Linseed, (EQL FLAX SEED OIL) 1000 MG CAPS, Take 1 capsule by mouth Daily., Disp: , Rfl: ; folic acid (FOLVITE) 400 MCG tablet, Take 400 mcg by mouth Daily., Disp: , Rfl: ; levothyroxine (SYNTHROID, LEVOTHROID) 137 MCG tablet, Take 137mg by mouth one day a week, D isp: , Rfl: levothyroxine (SYNTHROID, LEVOTHROID) 150 mcg tablet, Take 150mg by mouth daily six days a week Take 150mg by motuth daily four days a week and 137mg two days per week. 04/27/2015 LJ, Disp: , Rfl: ; Multiple Vitamins-Minerals (EYE VITAMINS) CAPS, Take by mouth 2 times daily ., Disp: , Rfl: ; [place]-3 Fatty Acids (OMEGA 3 PO), Take 450 mg by mouth 2 times daily., Di sp: , Rfl: potassium chloride (KLOR-CON) 20 MEQ packet, Take 40 mEq by mouth 3 times daily., Disp: , R fl: ; prednisoLONE (PRED FORTE) 1% ophthalmic suspension, one drop in each eye twice daily, Disp: , Rfl: ; PrednisoLONE Sodium Phosphate (PREDNISOL OP), Apply to eye. 1 drop in each eye once a day, Disp: , Rfl: ; PULMICORT FLEXHALER 180 MCG/ACT inhaler, USE 2 INHALATIONS TWICE A DAY, Disp: 3 each, Rfl: 3 Pyridoxine HCl (VITAMIN B-6) 100 MG tablet, Take 200 mg by mouth Daily., Disp: , Rfl: ; te lmisartan (MICARDIS) 40 mg tablet, Take 40 mg by mouth Daily. (Patient taking differently: T tim 80 mg by mouth Daily.), Disp: , Rfl: ; Thiamine HCl (VITAMIN B-1 PO), Take by mouth., Disp: , Rfl: ; triamterene-hydrochlorothiazide (DYAZIDE) 37.5-25 MG per capsule, 2 capsules by mouth daily, Disp: , Rfl: vitamin B-12 (CYANOCOBALAMIN) 100 MCG tablet, Take 50 mcg by mouth Daily., Disp: , Rfl: Immunizations: Immunization History Administered Date(s) Administered INFLUENZA, TRIVALENT PRESERVATIVE FREE (PED/ADOL/ADULT) 06/03/2012, 07/29/2013 INFLUENZA, UNSPECIFIED FORMULATION 07/28/2014 ZOSTER, 1 DOSE (ADULT) 06/03/2012 Review of Systems Constitutional: Denies fever, chills, sweats, fatigue/weakness, and unexpected weight mejía ge. Sleep: Denies trouble sleeping, excessive snoring, and daytime sleepiness. Eyes: Denies vision change, and eye irritation. ENT: Denies earache, tinnitus, decreased hearing, nosebleeds, sore throat, and hoarseness. Resp: See HPI. CV: Denies neck/chest/jaw pain with exertion, palpitations, lightheadedness, syncope, dysp mirza on exertion, orthopnea, PND, peripheral edema, and claudication. GI: Denies trouble swallowing, nausea, vomiting, abdominal pain, diarrhea, constipation,m quan, and hematochezia. Neurologic: Denies frequent headaches, seizures, tremors, numbness or tingling in hands or feet, vertigo, and falls. Allergy Denies urticaria, allergic rash, hay fever. Objective BP 148/80 mmHg | Pulse 73 | Resp 14 | Ht 1.816 m (5' 11.5") | Wt 99.338 kg (219 lb) | BMI 3 0.12 kg/m2 | SpO2 98% Appearance: Alert, cooperative, no distress, appears stated age Head: Normocephalic, without obvious abnormality, atraumatic Eyes: PERRL, conjunctiva/corneas clear Nose: Nares normal, septum midline, mucosa normal, no drainage or sinus tenderness Throat: Lips, mucosa, and tongue normal; teeth/dentures normal Neck: Supple, symmetrical, no JVD Lungs: No accessory muscle use, breath sounds are clear to auscultation bilaterally, no w heezes, crackles or rhonchi. No dullness to percussion. Chest Wall: No tenderness or deformity Heart: Regular rate and rhythm, S1, S2 normal, no murmur, rub or gallop Extremities: Extremities normal, atraumatic, no cyanosis, clubbing, or edema Skin: Warm and dry Lymph nodes: Cervical and supraclavicular nodes normal Neurologic: Gait normal Data: None Assessment 1. Bronchiectasis involving the right lower lobe. Over last 12 months no significant br onchiectasis exacerbations requiring antibiotics. The patient is using an inhaled corticost eroid to decrease airway inflammation. Attempts to lower his Pulmicort Turbuhaler below 2 p uffs twice a day have been historically associated with worsening cough and sputum productio n. I do not see documentation regarding her Pneumovax or Prevnar 13. We will start with her P neumovax today. Mr. Monk plans to receive a high dose seasonal influenza vaccination in Jun. 2. Obstructive sleep apnea intolerant to CPAP. Treated with weight loss. Has some snor ing but no admitted to daytime fatigue. Plan 1. Pneumovax today. 2. Pulmonary clinic follow-up appointment in 12 months time. CC: Chava Ibanez MD documented in this encounter Plan of Treatment Not on filedocumented as of this encounter Visit Diagnoses + + | Diagnosis | + + | BRONCHIECTASIS - Primary Bronchiectasis without acute exacerbation | + + | Obstructive sleep apnea Obstructive sleep apnea (adult) (pediatric) | + + | Need for pneumococcal vaccination Need for prophylactic vaccination against | | streptococcus pneumoniae (pneumococcus) | + + documented in this encounter
--- OUTSIDE RECORDS SUMMARY | ~2019-09-22 | XMS | Encounter Summary ---
Demographics + + + | Address | [address] | | | [place] [address] | + + + | Home Phone | | + + + | Preferred Language | Unknown | + + + | Marital Status | | + + + | Oriental Orthodox Affiliation | 1001 | + + + | Race | Unknown | + + + | Ethnic Group | Unknown | + + + Author + + + | Author | [facility] | | | and Jayjayana | + + + | Organization | [facility] | | | and [place] [...] Team Providers + +------+ + | Care Blind Installer Name | Role | Phone | + +------+ + | Chava Ibanez | PCP | | | MD | | | + +------+ + Reason for Visit + + + | Reason | Comments | + + + | Bronchiectasis | Yearly | + + + Encounter Details +--------+---------+ + + + | Date | Type | Department | Care Team | Description | +--------+---------+ + + + | 04/25/ | Office | [facility] | Jeffrey Mejia, | Bronchiectasis | | 2016 | Visit | PULMONARY [address] | MD [address] | without complication | | | | [place], | [place], [place] | ([facility]) (Primary Dx); | | | | [place] [address] | [address] | Need for | | | | [phone] | | pneumococcal | | | | [...] + + + | Blood Pressure | 130/80 | 04/25/2016 12:43 PM | | | | | PDT | | + + + + + | Pulse | 72 | 04/25/2016 12:43 PM | | | | | PDT | | + + + + + | Temperature | - | - | | + + + + + | Respiratory Rate | - | - | | + + + + + | Oxygen Saturation | 97% | 04/25/2016 12:43 PM | | | | | PDT | | + + + + + | Inhaled Oxygen | - | - | | | Concentration | | | | + + + + + | Weight | 92.8 kg (204 lb 8 | 04/25/2016 12:43 PM | | | | oz) | PDT | | + + + + + | Height | 180.3 cm (5' 11") | 04/25/2016 12:43 PM | | | | | PDT | | + + + + + | Body Mass Index | 28.52 | 04/25/2016 12:43 PM | | | | | PDT | | + + + + + documented in this encounter Patient Instructions Patient Instructions Jeffrey Mejia MD - 04/25/2016 1:18 PM PDT Please get High dose FluVaccine in June The flu (influenza) is caused by a [...] that provide care in hospitals, nursing homes, [facility], and other facilities Household members, including [...] allergic reaction to a previous flu vaccine Guillain-Norwalk syndrome (a severe paralyzing condition) The nasal spray is recommended for people from 2 to 49 years old. It should not be given to adults who: Are Have weakened immune systems Have egg allergies Will be in close contact with someone with a weakened immune system Have taken antiviral medication in the past 2 days [id number] [employer]. [address] [place] [address], [place] [address]. All righ ts reserved. This information is not intended as a substitute for professional medical care. Always follow your healthcare professional's instructions. documented in this encounter Progress Notes Jeffrey Mejia MD - 04/25/2016 1:06 PM PDTFormatting of this note might be different f rom the original. Pulmonary Follow Up 04/25/2016 [facility] Rachel Monk is a 80 y.o. male patient of Chava Ibanez MD here today for follo w up of bronchiectasis. It has been 12 months since our last clinic appointment. At their last visit, we planned t o follow up in one year. Since the last visit he feels like their symptoms are stable. T sheryly have have had any acute illnesses. He reports 0 bronchiectasis exacerbations requiring antibiotics. They are currently are not on a maintenance regimen. Currently they are able to walk 2-3 miles at their own pace on level ground before becoming symptomatic. They are not exercising regularly. They are not enrolled in cardiac/pulmonary rehabilitation or other physical therapy. He are not practicing bronchial hygiene behaviors. He does not cough chronically, and does not produce mucous. They have not had hemoptysis s radha our last appointment. He has not been evaluated for nocturnal oxygen. Uses Pulmicort 2 puffs twice daily.. He does not had symptoms of heartburn or acid reflux. Uses Nexium. They had recent or sympt oms of nasal congestion, runny nose or post [...] 2004: RDI 17.6, 89% intolerant of CPAP Acid reflux disease Rash Obesity Allergies: Allergies Allergen Reactions Sulfa Antibiotics Medications: Current outpatient prescriptions: budesonide (PULMICORT FLEXHALER) 180 mcg/puff inhaler, USE 2 INHALATIONS TWICE A DAY, Disp: 3 each, Rfl: 3 diltiazem (CARDIZEM CD) 240 MG 24 hr capsule, Take 240 mg by mouth Daily., Disp: , Rfl : esomeprazole (NEXIUM) 40 mg capsule, Take 40 mg by mouth Daily., Disp: , Rfl: finasteride (PROSCAR) 5 mg tablet, Take 5 mg by mouth Daily., Disp: , Rfl: Flaxseed, Linseed, (EQL FLAX SEED OIL) 1000 MG CAPS, Take 1 capsule by mouth Daily., D isp: , Rfl: folic acid (FOLVITE) 400 MCG tablet, Take 400 mcg by mouth Daily., Disp: , Rfl: levothyroxine (SYNTHROID, LEVOTHROID) 137 MCG tablet, Take 137mg by mouth one day a we ek, Disp: , Rfl: levothyroxine (SYNTHROID, LEVOTHROID) 150 mcg tablet, Take 150mg by mouth daily six da ys a week Take 150mg by motuth daily four days a week and 137mg two days per week. 04/27/2015 LJ, Disp: , Rfl: Multiple Vitamins-Minerals (EYE VITAMINS) CAPS, Take by mouth 2 times daily., Disp: , Rfl: [place]-3 Fatty Acids (OMEGA 3 PO), Take 450 mg by mouth 2 times daily., Disp: , Rfl: potassium chloride (KLOR-CON) 20 MEQ packet, Take 40 mEq by mouth 2 times daily., Disp : , Rfl: PrednisoLONE Sodium Phosphate (PREDNISOL OP), Apply to eye. 1 drop in each eye once a day, Disp: , Rfl: Pyridoxine HCl (VITAMIN B-6) 100 MG tablet, Take 200 mg by mouth Daily., Disp: , Rfl: telmisartan (MICARDIS) 80 MG tablet, Take one tablet daily, Disp: , Rfl: Thiamine HCl (VITAMIN B-1 PO), Take by mouth., Disp: , Rfl: triamterene-hydrochlorothiazide (MAXZIDE) 75-50 mg per tablet, Take one tablet daily, Disp: , Rfl: vitamin B-12 (CYANOCOBALAMIN) 100 MCG tablet, Take 50 mcg by mouth Daily., Disp: , Rfl : Immunizations: Immunization History Administered Date(s) Administered INFLUENZA, TRIVALENT PRESERVATIVE FREE (PED/ADOL/ADULT) 06/03/2012, 07/29/2013, 015 INFLUENZA, UNSPECIFIED FORMULATION 07/28/2014 PNEUMOCOCCAL POLYSACCHARIDE 23-VALENT (PPSV23) 04/27/2015 ZOSTER, 1 DOSE (ADULT) 06/03/2012 Review of [...] urticaria, allergic rash, hay fever. Objective BP 130/80 mmHg | Pulse 72 | Ht 1.803 m (5' 11") | Wt 92.761 kg (204 lb 8 oz) | BMI 28.53 kg /m2 | SpO2 97% Appearance: Alert, cooperative, no distress, appears stated [...] supraclavicular nodes normal Neurologic: Gait normal Data: None. Assessment 1. Bronchiectasis no exacerbations over the last 12 months. Mr. Monk is up-to-date with respect to his Pneumovax and seasonal influenza vaccination. The patient is in need of a P revnar 13. Prior attempts to decrease Pulmicort Turbuhaler are associated with the development of wors ening cough. No significant sputum production. Thus it does not appear that this patient is in need of initiation of the sputum clearance device such as an Acapella. Plan 1. Prevnar 13 today. 2. High dose seasonal influenza vaccination June 2016. 3. No change in the patient's Pulmicort Turbuhaler dose. 4. Pulmonary clinic follow-up appointment in 12 months time. CC: Chava Ibanez MD documented in this encounter Plan of Treatment Not on filedocumented as of this encounter Visit Diagnoses + + | Diagnosis | + + | Bronchiectasis without complication (HCC) - Primary Bronchiectasis without acute | | exacerbation | + + | Need for pneumococcal vaccination Need for prophylactic vaccination against | | streptococcus pneumoniae (pneumococcus) | + + documented in this encounter
--- OUTSIDE RECORDS SUMMARY | ~2019-09-22 | XMS | Encounter Summary ---
Demographics + + + | Address | [address] | | | [place] [address] | + + + | Home Phone | | + + + | Preferred Language | Unknown | + + + | Marital Status | | + + + | Catholic Affiliation | ADV | + + + | Race | White | + + + | Ethnic Group | Not or | + + + Author + + + | Author | [facility] | + + + | Organization | [facility] | + + + | Address [...] Providers + +------+ + | Care Supervisor Backfilling Name | Role | Phone | + +------+ + | Chava Ibanez MD | PCP | | + +------+ + Encounter Details +--------+ + + + + | Date | Type | Department | Care Team | Description | +--------+ + + + + | 12/26/ | Ancillary | Registration [id number] | Kade Frazier MD | | | 2004 | Registratio | [address] | | | | | n | Yosi Mailcode: [id number] | | | | | | [place], [place] | | | | | | [address] | | | | | | [phone] | | | +--------+ + + + [...] | + +--------+ + + + | THYROGLOBULIN LEVEL | Routin | 12/26/2004 | | Results for this | | AND ANTIBODY, SERUM | e | 9:09 AM | | procedure are in the | | | | PST | | results section. | + +--------+ + + + | TSH | Routin | 12/26/2004 | | Results for this | | | e | 9:09 AM | | procedure are in the | | | | PST | | results section. | + +--------+ + + + documented in this encounter Results THYROGLOBULIN, SERUM (12/26/2004 9:09 AM PST) + + + + + + | Component | Value | Ref Range | Performed | Pathologist | | | | | At | Signature | + + + + + + | THYROGLOBUL | 2.1Comment: Test | IU/mL | | | | IN ANTIBODY | performed by [facility] | | | | | | [facility]. | | | | | | Anti-Thyroglobulin Ab | | | | | | Reference Range: | | | | | | Children and Adults<1.0 | | | | | | IU/mL Low levels | | | | | | of Anti-TG Antibodies | | | | | | (<100 IU/mL) may be | | | | | | presentin | | | | | | apparently healthy | | | | | | children and adults. | | | | | | Since it is | | | | | | unclearwhether | | | | | | this is a normal immune | | | | | | response or subclinical | | | | | | thyroiditis,low | | | | | | levels of antibodies | | | | | | should be correlated | | | | | | with the | | | | | | patient'sclinical | | | | | | condition. | | | | + + + + + + | THYROGLOBUL | Test not indicated. | ng/mL | | | | IN | | | | | | (TG-ICMA) | | | | | + + + + + + | THYROGLOBUL | 2.2Comment: | ng/mL | | | | IN (TG-CHAPARRITA) | TG-CHAPARRITA Reference Range: | | | | | | RANGE (ng/mL) | | | | | | MEAN (ng/mL) | | | | | | Infants (1-12 mos): | | | | | | 12-113 | | | | | | 42 | | | | | | Prepubertal | | | | | | Children/Adults: | | | | | | 5.2-72 | | | | | | 29 Pubertal | | | | | | Children/Adults: | | | | | | <3-39 | | | | | | 16 | | | | + + + + + + | % RECOVERY | 87Comment: | | | | | | TG-Recovery Reference | | | | | | Range: Children and | | | | | | Adults 85-115 % | | | | | | TG-Autoantibodies | | | | | | (Anti-TG) are know to | | | | | | interfere with serum | | | | | | Thyroglobulin | | | | | | determinations. | | | | | | Autoantibody | | | | | | interference canbe aleksandr- | | | | | | mated by recovery | | | | | | studies on anti-TG | | | | | | positive samples. Aknown | | | | | | amount of TG | | | | | | standard is added to the | | | | | | patient sample. The | | | | | | magnitudeof | | | | | | autoantibody | | | | | | interference is | | | | | | estimated by comparing | | | | | | theactual TG | | | | | | measured with the | | | | | | expected value. In | | | | | | normal anti-TG | | | | | | negativeserum, TG | | | | | | measured is 85-115 % of | | | | | | that expected. | | | | + + + + + + + + | Specimen | + + | | + + + + + + + | Performing | Address | City/State/Zipcode | Phone Number | | Organization | | | | + + + + + | [facility] | [address] | [place], [place] | | | | | [address] | | + + + + + TSH-THYROID STIM HORMONE (12/26/2004 9:09 AM PST) + + + + + + | Component | Value | Ref Range | Performed | Pathologist | | | | | At | Signature | + + + + + + | TSH | 1.80Comment: Test | 0.28 - 5.00 | | | | | performed by [facility] | uIU/ml | | | | | [facility] | | | | | | [facility]. | | | | + + + + + + + + | Specimen | + + | | + + + + + + + | Performing | Address | City/State/Zipcode | Phone Number | | Organization | | | | + + + + + | [facility] | [address] | [place] [address] | | | LABORATORY | | | | + + + + + documented in this encounter Visit Diagnoses Not on filedocumented in this encounter"
--- OUTSIDE RECORDS SUMMARY | ~2019-09-22 | XMS | Encounter Summary ---
Demographics + + + | Address | [address] | | | [place] [address] | + + + | Home Phone | | + + + | Preferred Language | Unknown | + + + | Marital Status | | + + + | Jewish Affiliation | 1001 | + + + | Race | Unknown | + + + | Ethnic Group | Unknown | + + + Author + + + | Author | [facility] | | | and [place] | + + + | Organization | [facility] | [...] Team Providers + +------+ + | Care Loom Operator Name | Role | Phone | + +------+ + | Chava Ibanez | PCP | | | MD | | | + +------+ + Encounter Details +--------+ + + + + | Date | Type | Department | Care Team | Description | +--------+ + + + + | 05/02/ | Abstract | [facility] | Kade Wheat MD | | | 2012 | | GASTROENTEROLOGY | [address], [place] | | | | | [address] [place] | [address] [place] [address] | | | | | [address] [place], [place] | [address] | | | | | [address] | | | | | | [phone] | | | +--------+ + + + [...]
--- OUTSIDE RECORDS SUMMARY | ~2019-09-22 | XMS | Encounter Summary ---
Demographics + + + | Address | [address] | | | [place] [address] | + + + | Home Phone [...] Team Providers + +------+ + | Care Social Insurance Specialist Name | Role | Phone | + +------+ + PCP | Unavailable | + +------+ + Encounter Details +--------+ + + + + | Date | Type | Department | Care Team | Description | +--------+ + + + + | 05/10/ | Orders Only | | Record, Operation | | | 2005 | | | | | +--------+ + [...] | + +--------+ + + + | OPERATION RECORD | | 02/04/2005 | | Results for this | | | | | | procedure are in the | | | | | | results section. | + +--------+ + + + documented in this encounter Results OPERATION RECORD (02/04/2005) + + | Transcriptions | + + | Interface, Manager Music In - 09/17/2005 9:07 PM PST | | [id number] | | [id number] LINCOLN Zheng | | | | Date: 02/04/2005 | | | | Attending Surgeon: Kade Frazier M.D., Ph.D. | | | | Deer Farmer(s): Waylon Boyce MD | | | | Preoperative Diagnosis(es): | | Left deep lobe parotid tumor. | | | | Postoperative Diagnosis(es): | | Left deep lobe parotid tumor. | | | | Procedures Performed: | | 1. Left total parotidectomy. | | 2. Dual-channel bipolar facial nerve monitoring x2 hours and 15 | | minutes. | | | | | | Anesthesia: | | General. | | | | Complications: | | | | Specimens: | | Left total parotid gland with deep lobe parotid tumor sent for permanent. | | | | Findings: | | 1. All branches of facial nerve were identified and traced out and | | preserved during the dissection. | | 2. Approximately 2-cm deep lobe parotid mass resected with parotid | | specimen. This mass was adjacent and attached to the retromandibular | | vein just posterior and deep to the inferior, cervical branch of the | | facial nerve, it was easily dissected free of these structures and | | passed off and resected with en bloc parotid specimen. | | | | | | Indications: | | This is a 69-year-old gentleman who has a left deep lobe parotid mass. It | | was discovered as an incidental finding on a CT. He is asymptomatic and | | had normal facial nerve function. CT-guided biopsy was inconclusive given | | its location. It was felt after discussion with the patient that it would | | be prudent to remove the mass. | | | | Procedure: | | The patient was properly identified in the preoperative holding area by | | name identification and taken to the operating room. He was placed in a | | comfortable supine position. Following induction of general endotracheal | | anesthesia, endotracheal tube was secured, and the table was turned. | | Facial nerve monitors were placed in the proper facial landmarks, and | | dual-channel bipolar facial nerve monitoring was carried out throughout the | | duration of the case (2 hours and 15 minutes). The patient was positioned | | appropriately, and a Pieter incision was marked out and infiltrated with | | approximately 6 mL of 1% lidocaine with 100,000 epinephrine. The patient | | was then prepped and draped in the usual sterile fashion. | | | | A #15 blade was used to make a skin incision. In the lower limit of the | | incision, dissection was carried through the platysma, and a subplatysmal | | flap was elevated below the mandible. This plane was carried up around the | | angle of the mandible into the preauricular space, and intra-SMAS | | dissection was carried up over the parotid gland to the level of the | | masseter thus leaving the parotid capsule and parotid fascia intact below. | | Similar subplatysmal and SMAS planes were elevated in the deep flap, and | | these were retracted with skin hooks thus allowing for exposure of the | | parotid gland and its capsule. Dissection was then carried along the | | anterior parotid sternocleidomastoid muscle up to the mastoid tip. The | | posterior belly of the digastric was then identified and dissected along | | its course below the mandible. A plane was then developed just anterior to | | the perichondrium of the ear canal and connected to the deeper dissections. | | The posterior branch of the greater auricular nerve was identified and cut | | as part of this dissection. Dissection was then used with a tenotomy | | scissors to carefully open up a plane just deep and inferior to the tragal | | pointer and along the tympanomastoid suture. These fascial bands were | | taken down sequentially opening up a wide plane. The facial nerve was | | identified at its trunk as it exits the sternomastoid foramen just deep and | | inferior to the tympanomastoid suture. Dissection was then carried | | carefully along the main trunk of the nerve. There was noted to be quite a | | bit of inflammation along here thus blunting the natural planes along the | | nerve and making the dissection more difficult. Dissection was carried out | | to the pes of the facial nerve, and the superior branch of the facial nerve | | was dissected free. The parotid gland with its capsule was then dissected | | free of the superior branch of the facial nerve and peeled inferiorly. The | | zygomatic branch of the facial nerve was then dissected free, it was then | | identified, and the parotid gland was then dissected free from the | | zygomatic branch thus peeling the parotid gland inferiorly. Next, the | | buckle branch was identified. In a similar fashion, the parotid gland was | | dissected free of the buckle branch with careful attention to preserve the | | arcades of the buckle branch. Next, the inferior limit of the dissection | | was delineated by dissecting the inferior, cervical branch of the facial | | nerve. This freed up the inferior limits of the specimen given somewhat | | more mobility. Dissection was then carried along the marginal mandibular | | branch thus further freeing up the parotid gland. The retromandibular vein | | was identified just posterior to the inferior branch of the facial nerve. | | A small branch of the vein was identified and ligated and tied. The | | parotid gland was now freed of the proximal inferior portions of the facial | | nerve. The mass just deep to the retromandibular vein and inferior | | branches of the facial nerve was identified and carefully dissected free | | with the deep lobe of the parotid of these nerves, and it was easily pulled | | out from beneath the vein in the facial nerves and kept in continuity with | | the specimen. The specimen was then dissected free of the previously | | identified lower branches of the facial nerve, and the entire specimen was | | passed off and sent for permanent section. A KIKE drain was placed in the | | inferior limit of the dissection and secured and brought out behind the ear | | through a skin incision and secured with a drain stitch. The wound was | | then closed in 2 layers with a deep running 4-0 Vicryl closure of the | | platysma and SMAS layer and a running 5-0 fast-absorbing gut closure of the | | skin. Bacitracin ointment was placed on the incision. Facial nerve | | electrodes were removed. The patient was awakened, extubated, and taken to | | the PACU where he was noted to be in stable and satisfactory condition. | | | | Dr. Kade Frazier was present throughout the duration of the case. | | | | | | | | | | Waylon Boyce MD | | | | | | | | Kade Frazier M.D., Ph.D. | | Professor - Head and Neck Surgery | | Department of Otolaryngology/Head and Neck Surgery | | [facility]- | | FAX [phone] | | email - [email or web address] | | | | / RISHI | | [id number] / [id number] / [id number] / [phone] | | | | | | | | | | | | Electronically signed by Kade Frazier 02-22-2005 10:08:04 PM | + + documented in this encounter Visit Diagnoses Not on filedocumented in this encounter"
--- OUTSIDE RECORDS SUMMARY | ~2019-09-22 | XMS | Encounter Summary ---
Demographics + + + | Address | [address] | | | [place] [address] | + + + | Home Phone | | + + + | Preferred Language | Unknown | + + + | Marital Status | | + + + | Restorationist Affiliation | ADV | + + + | Race | White | + + + | Ethnic Group | Not or | + + + Author + + + | Author | [facility] | + + + | Organization | [facility] | + + + [...] Team Providers + +------+ + | Care Operational Intelligence Officer Name | Role | Phone | + +------+ + | Chava Ibanez MD | PCP | | + +------+ + Reason for Visit + + + | Reason | Comments | + + + | Lab Order | | + + + Encounter Details +--------+ + + + + | Date | Type | Department | Care Team | Description | +--------+ + + + + | 09/01/ | Telephone | [facility] | [place], | Lab Order | | 2018 | | [place] [address] | [address] | | | | | [place], [place] | [place], [place] [address] | | | | | [address] | [phone] | | | | | [phone] | | | +--------+ + + + [...]
--- OUTSIDE RECORDS SUMMARY | ~2019-09-22 | XMS | Encounter Summary ---
Demographics + + + | Address | [address] | | | [place] [address] | + + + | Home Phone | | + + + | Preferred Language | Unknown | + + + | Marital Status | | + + + | Pentecostalism Affiliation | ADV | + + + [...] Team Providers + +------+ + | Care Tea Plantation Worker Name | Role | Phone | + +------+ + PCP | Unavailable | + +------+ + Reason for Visit + + + | Reason | Comments | + + + | Refill Request | | + + + Encounter Details +--------+--------+ + + + | Date | Type | Department | Care Team | Description | +--------+--------+ + + + | 07/06/ | Refill | [facility] | [place]o, | Refill Request | | 2014 | | [place] [address] | | | | | [place], [place] | [place] [address] | | | | | [address] | [phone] | | | | | [phone] | | | +--------+--------+ + + + [...]
--- OUTSIDE RECORDS SUMMARY | ~2019-09-22 | XMS | Encounter Summary ---
Demographics + + + | Address | [address] | | | [place] [address] | + + + | Home Phone | | + + + | Preferred Language | Unknown | + + + | Marital Status | | + + + | Latter Day Affiliation | ADV | + + + | Race | White | + + + | Ethnic Group | Not or | + + + Author + + + | Author | [facility] | + + + | Organization | [facility] | + + + | [...] Team Providers + +------+ + | Care Exchange Specialist Name | Role | Phone | + +------+ + | No Pcp Per Patient | PCP | Unavailable | + +------+ + Reason for Visit + + + | Reason | Comments | + + + | Chart Review | PSA needed | + + + Encounter Details +--------+ + + + + | Date | Type | Department | Care Team | Description | +--------+ + + + + | 08/31/ | Telephone | [facility] | [place], | Chart Review (PSA | | 2017 | | [place] [address] | [address] | needed) | | | | [place], [place] | [place] [address] | | | | | [address] | [phone] | | | | | [phone] | | | +--------+ + + + [...]
--- OUTSIDE RECORDS SUMMARY | ~2019-09-22 | XMS | Encounter Summary ---
Demographics + + + | Address | [address] | | | [place] [address] | + + + | Home Phone | | + + + | Preferred Language | Unknown | + + + | Marital Status | | + + + | Synagogue Affiliation | ADV | + + + [...] Team Providers + +------+ + | Care Leather Sponger Name | Role | Phone | + +------+ + | Chava Ibanez MD | PCP | | + +------+ + Encounter Details +--------+ + + + + | Date | Type | Department | Care Team | Description | +--------+ + + + + | 08/31/ | Results | [facility] [address] | Other, Faculty | | | 2019 | Only | [address] [facility] | [phone] | | | | | [place] | | | | | | [address] | | | +--------+ + + + [...] | BASIC METABOLIC SET | Routin | 08/31/2019 | | Results for this | | (NA, K, CL, TCO2, | e | 7:27 AM | | procedure are in the | | BUN, CR, GLU, CA) | | PST | | results section. | + +--------+ + + + documented in this encounter Results BASIC METABOLIC SET (NA, K, CL, TCO2, BUN, CR, GLU, CA) (08/31/2019 7:27 AM PST) + + + + + + | Component | Value | Ref Range | Performed | Pathologist | | | | | At | Signature | + + + + + + | SODIUM, | 133 | 132 - 143 meq/L | [facility] | | | [facility]ASMA | | | LAB - | | | (LAB) | | | [place] | | + + + + + + | POTASSIUM, | 3.8 | 3.6 - 5.1 meq/L | [facility] [...] + + + + | CO2 | 26 | 19 - 31 meq/L | [facility] | | | | | | LAB - | | | | | | [place] | | + + + + + + | ANION GAP | 14.8 | 7 - 21 | [facility] | | | | | | LAB - | | | | | | [place] | | + + + + + + | GLUCOSE, | 123 (H) | 70 - 100 mg/dL | [facility] | | | PLASMA | | | LAB - | | | (LAB) | | | [place] | | + + + + + + | CALCIUM | 9.4 | 8.5 - 10.3 | [facility] | | | | | mg/dL | LAB - | | | | | | [place] | | + + + + + + | BUN, PLASMA | 19 | 6 - 23 mg/dL | [facility] | | | (LAB) | | | LAB - | | | | | | [place] | | + + + + + + | CREATININE | 1.04 | 0.70 - 1.11 | [facility] | | | PLASMA | | mg/dL | LAB - | | | (LAB) | | | [place] | | + + + + + + | ESTIMATED | 68 | ml/min | [facility] | | | GFR | | | LAB - | | | | | | [place] | | + + + + + + | BUN/CREATIN | 18.3Comment: | 6.0 - 28.6 | [facility] | [...] 04/15/2018. | | | | | | Copy Sent to MARY[facility]UY | | | | | | DARLENE [place] on | | | | | | 09/01/19. | | | | | | MANAV | | | | + + + + + + + + | Specimen | + + | | + + + + + | Narrative | Performed At | + + + | Testing Performed at: [facility] [address] CLIA: [id number] - [address] | [facility] | | [place] [address] | - [place] | + + + + + + + + | Performing | Address | City/State/Zipcode | Phone Number | | Organization | | | | + + + + + | [facility] - | [address] | [place] | [phone] | | [place] | | | | + + + + + documented in this encounter Visit Diagnoses Not on filedocumented in this encounter"
--- OUTSIDE RECORDS SUMMARY | ~2019-09-22 | XMS | Encounter Summary ---
Demographics + + + | Address | [address] | | | [place] [address] | + + + | Home Phone | | + + + | Preferred Language | Unknown | + + + | Marital Status | | + + + | Druze Affiliation | 1001 | + + + | Race | Unknown | + + + | Ethnic Group | Unknown | + + + Author + + + | Author | [facility] | | | and [place] | + + + | Organization | [facility] | | | and [place] | [...] Team Providers + +------+ + | Care Building Contractor Name | Role | Phone | + [...] Description | +--------+--------+ + + + | 12/03/ | Refill | [facility] | Jeffrey Mejia, | Medication Refill | | 2017 | | PULMONARY [address] | MD [address] | | | | | [place], | [place], [place] | | | | | [place] [address] | [address] | | | | | [phone] | | | +--------+--------+ + + + [...]
--- OUTSIDE RECORDS SUMMARY | ~2019-09-22 | XMS | Encounter Summary ---
Demographics + + + | Address | [address] | | | [place] [address] | + + + | Home Phone | | + + + | Preferred Language | Unknown | + + + | Marital Status | | + + + | Baptist Affiliation | ADV | + + + | Race | White | + + + | Ethnic Group | Not or | + + + Author + + + | Author | [facility] | + + + | Organization | [facility] | + + + [...] Team Providers + +------+ + | Care Handbag Operator Name | Role | Phone | [...] St | | | | | St [place], [place] | [place], [place] [address] | | | | | [address] | [phone] | | | | | [phone] | | | +--------+ + + + [...] | + + + + + | [facility] | And | [place] [address] | | | [facility] | [facility] | | | + + + + + documented in this encounter Visit Diagnoses Not on filedocumented in this encounter"
--- OUTSIDE RECORDS SUMMARY | ~2019-09-22 | XMS | Encounter Summary ---
Demographics + + + | Address | [address] | | | [place] [address] | + + + | Home Phone | | + + + | Preferred Language | Unknown | + + + | Marital Status | | + + + | Gnosticism Affiliation | 1001 | + + + | Race | Unknown | + + + | Ethnic Group | Unknown | + + + Author + + + | Author | [facility] | | | and Jayjayana | + + + | Organization | [facility] | | | and [...] Team Providers + +------+ + | Care Lvn Lpn Name | Role | Phone | + [...] Description | +--------+---------+ + + + | 04/17/ | Office | [facility] | Jeffrey Mejia, | Bronchiectasis | | 2017 | Visit | [address]ULMONARY [address] | MD [address] | without complication | | | | [place], | [place], [place] | ([facility]) (Primary Dx); | | | | [place] [address] | [address] | Rhinitis, chronic | | | | [phone] | | | +--------+---------+ + + + Social History [...] + + + | Blood Pressure | 122/70 | 04/17/2017 12:54 PM | | | | | PDT | | + + + + + | Pulse | 76 | 04/17/2017 12:54 PM | | | | | PDT | | + + + + + | Temperature | - | - | | + + + + + | Respiratory Rate | - | - | | + + + + + | Oxygen Saturation | 97% | 04/17/2017 12:54 PM | | | | | PDT | | + + + + + | Inhaled Oxygen | - | - | | | Concentration | | | | + + + + + | Weight | 89.5 kg (197 lb 6.4 | 04/17/2017 12:54 PM | | | | oz) | PDT | | + + + + + | Height | 180.3 cm (5' 11") | 04/17/2017 12:54 PM | | | | | PDT | | + + + + + | Body Mass Index | 27.53 | 04/17/2017 12:54 PM | | | | | PDT | | + + + + + documented in this encounter Patient Instructions Patient Instructions Jeffrey Mejia MD - 04/17/2017 1:30 PM PDTNasal saline sprays (Oc fanny, etc.) - non-prescription sprays that can be used several times a day if needed for nasa l dryness. documented in this encounter Progress Notes Jeffrey Mejia MD - 04/17/2017 1:30 PM PDTFormatting of this note might be different f rom the original. Pulmonary Follow Up 04/17/2017 TOMASA Ramos Bigg Monk is a 81 y.o. male patient of Russell Tay MD here today for follow up of bronchiectasis. It has been 12 months since our last clinic appointment. At their last visit, we planned t o follow up in 12 months. Since the last visit he feels like their symptoms are stable. They have have not had any significant acute illnesses. He reports 0 bronchiectasis exacerb ations requiring antibiotics. They are currently are not on a maintenance regimen. Currently they are able to walk ~1-2 miles on treadmill at their own pace on level ground b efore becoming symptomatic. The patient is exercising regularly. Walks on treadmill 2-3 kate es per week. They are not enrolled in cardiac/pulmonary rehabilitation or other physical the rapy. The patient are not practicing bronchial hygiene behaviors. Rachel does not cough chronically, and does not produce mucous. They have not had hemopty sis since our last appointment. He has not been evaluated for nocturnal oxygen. Rachel does not use a bronchodilator. He does not had symptoms of heartburn or acid reflux. They have had recent or symptoms of n melyssa congestion, runny nose or post nasal drip. The patient have received this year's influenza vaccination. They are up to date with thei r Pneumovax and Prevnar 13. Mr. Monk also notes dry nasal secretions. The patient's Sjogren syndrome like symptoms are relatively well well-controlled with frequent drinking of water. Past Medical History Past Medical History: Diagnosis Date Acid reflux disease Benign paroxysmal positional vertigo Chronic sinusitis Colon polyp colon 2012 normal, no f/u needed Diphtheria age of 6 Disturbance of salivary secretion GERD (gastroesophageal reflux disease) History of scarlet fever Hypertension Intrinsic asthma, unspecified Obesity ELAN (obstructive sleep apnea) September 2004: RDI 17.6, 89% intolerant of CPAP Other abnormal glucose Other iatrogenic hypothyroidism Prediabetes Rash Rosacea Sjogren's syndrome (HCC) Sprain and strain of unspecified site of hip and thigh Thoracic or lumbosacral neuritis or radiculitis, unspecified Thyroid carcinoma (HCC) resected Tietze's disease Xerostomia Allergies: Allergies Allergen Reactions Sulfa Antibiotics Rash Medications: Current Outpatient Prescriptions: Cholecalciferol (VITAMIN D-3) 2000 units CAPS, Take 2,000 Units by mouth Daily., Disp: , Rfl: cyanocobalamin (VITAMIN B-12) 500 mcg tablet, Take 500 mcg by mouth Daily., Disp: , Rf l: diltiazem (CARDIZEM CD) 240 MG 24 hr capsule, Take 240 mg by mouth Daily., Disp: , Rfl : esomeprazole (NEXIUM) 40 mg capsule, Take 40 mg by mouth Daily., Disp: , Rfl: folic acid (FOLVITE) 800 MCG tablet, Take 400 mcg by mouth Daily., Disp: , Rfl: levothyroxine (SYNTHROID, LEVOTHROID) 137 MCG tablet, Take 1 tablet twice weekly, Disp : , Rfl: levothyroxine (SYNTHROID, LEVOTHROID) 150 mcg tablet, Take 1 tablet 5 days per week, D isp: , Rfl: Multiple Vitamins-Minerals (EYE VITAMINS) CAPS, Take by mouth 2 times daily., Disp: , Rfl: potassium chloride (K-DUR) 20 mEq ER tablet, Take 2 tablets twice daily, Disp: , Rfl: 2 PrednisoLONE Sodium Phosphate (PREDNISOL OP), Apply to eye. 1 drop in each eye once a day, Disp: , Rfl: PULMICORT FLEXHALER 180 MCG/ACT inhaler, INHALE 2 PUFFS BY MOUTH INTO THE LUNGS TWICE DAILY, Disp: 1 Inhaler, Rfl: 3 Pyridoxine HCl (VITAMIN B-6) 100 MG tablet, Take 100 mg by mouth Daily., Disp: , Rfl: telmisartan (MICARDIS) 80 MG tablet, Take one tablet daily, Disp: , Rfl: Thiamine HCl (VITAMIN B-1) 250 MG tablet, Take 250 mg by mouth Daily., Disp: , Rfl: tobramycin-dexamethasone (TOBRADEX) ophthalmic solution, Place 1 drop into both eyes D aily., Disp: , Rfl: triamterene-hydrochlorothiazide (MAXZIDE) 75-50 mg per tablet, Take one tablet daily, Disp: , Rfl: Immunizations: Immunization History Administered Date(s) Administered INFLUENZA 65 Y OR >, TRIVALENT HIGH-DOSE 07/18/2016 INFLUENZA PF 18 Y OR >,TRIVALENT RECOMBINANT 06/03/2012, 07/29/2013, 07/09/2015 PNEUMOCOCCAL CONJUGATE 13-VALENT (PCV13) 04/25/2016 PNEUMOCOCCAL POLYSACCHARIDE 23-VALENT (PPSV23) 04/27/2015 ZOSTER, 1 DOSE (ADULT) 06/03/2012 Objective BP 122/70 | Pulse 76 | Ht 1.803 m (5' 11") | Wt 89.5 kg (197 lb 6.4 oz) | SpO2 97% | B AK 27.53 kg/m Appearance: Alert, cooperative, no distress, appears stated age Head: Normocephalic, without obvious abnormality, atraumatic Eyes: PERRL, conjunctiva/corneas clear Nose: Nares normal, septum midline, nasal mucosa shows some dryness and increased secretion s., no drainage or sinus tenderness Throat: Lips, [...] gallop Extremities: Extremities normal, atraumatic, no cyanosis, clubbing. none edema Skin: Warm and dry Lymph nodes: Cervical and supraclavicular nodes normal Neurologic: Gait normal Data: None Assessment 1. Bronchiectasis no significant exacerbations over the last 12 months. Mr. Monk is up- to-date with respect to his seasonal influenza vaccination, Pneumovax and Prevnar. The patient was counseled regarding the benefit of a high-dose seasonal influenza vaccinati on in June. 2. Nasal congestion/nasal secretions likely related to underlying Sjogren's symptoms. Today we discussed use of nasal saline. Plan 1. [place] or equivalent 3 4 times a day. 2. High-dose seasonal influenza vaccination June 2017. 3. Pulmonary clinic follow-up appointment in approximately 12 months time. CC: Russell Tay MD d ocumented in this encounter Plan of Treatment Not on filedocumented as of this encounter Visit Diagnoses + + | Diagnosis | + + | Bronchiectasis without complication (HCC) - Primary Bronchiectasis without acute | | exacerbation | + + | Rhinitis, chronic Chronic rhinitis | + + documented in this encounter
--- OUTSIDE RECORDS SUMMARY | ~2019-09-22 | XMS | Encounter Summary ---
Demographics + + + | Address | [address] | | | [place] [address] | + + + | Home Phone | | + + + | Preferred Language | Unknown | + + + | Marital Status | | + + + | Samaritan Affiliation | 1001 | + + + | Race | Unknown | + + + | Ethnic Group | Unknown | + + + Author + + + | Author | [facility] | | | and Jayjayana | + + + | Organization | [facility] | | | and [place] [...] Team Providers + +------+ + | Care White Hat Hacker Name | Role | Phone | + [...] + + | 04/17/ | Office | [facility] | Jeffrey Mejia, | Bronchiectasis | | 2017 | Visit | [address]ULMON[address] | MD [address] | without complication | | | | [place], | [place], [place] | ([facility]) (Primary Dx); | | | | [place] [address] | [address] | Rhinitis, chronic | | | | [phone] | | | +--------+---------+ + + + [...] 6.4 oz) | SpO2 97% | B [place] 27.53 kg/m Appearance: Alert, cooperative, no distress, [...] discussed use of nasal saline. Plan 1. [place] or equivalent 3 4 times a day. [...]
--- OUTSIDE RECORDS SUMMARY | ~2019-09-22 | XMS | Encounter Summary ---
Demographics + + + | Address | [address] | | | [place] [address] | + + + | Home Phone | | + + + | Preferred Language | Unknown | + + + | Marital Status | | + + + | Hoahaoism Affiliation | ADV | + + + | Race | White | + + + | Ethnic Group | Not or | + + + Author + + + | Author | [facility] | + + + | Organization | [facility] | + + + [...] Team Providers + +------+ + | Care Senior Caregiver Name | Role | Phone | + [...] | needed) | | | | [place], [place] | [place] [address] | | | | | [address] | [phone] | | | | | [phone] | | | +--------+ + + + [...]
--- OUTSIDE RECORDS SUMMARY | ~2019-09-22 | XMS | Encounter Summary ---
Demographics + + + | Address | [address] | | | [place] [address] | + + + | Home Phone | | + + + | Preferred Language | Unknown | + + + | Marital Status | | + + + | Anglican Affiliation | ADV | + + + | Race | White | + + + | Ethnic Group | Not or | + + + Author + + + | Author | [facility] | + + + | Organization | [facility] | + + + | Address [...] Team Providers + +------+ + | Care Wharfmaster Name | Role | Phone | + +------+ + | Chava Ibanez MD | PCP | | + +------+ + Encounter Details +--------+ + + + + | Date | Type | Department | Care Team | Description | +--------+ + + + + | 02/04/ | Hospital | Registration [id number] | Kade Frazier MD | | | 2004 | Activity | [address] | | | | | | [address] Mailcode: [address] | | | | | | [place], [place] | | | | | | [address] | | | | | | [phone] | | | +--------+ + + + [...] + | SURGICAL PATHOLOGY | Routin | 02/04/2005 | | Results for this | | | e | | | procedure are in the | | | | | | results section. 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 Clinical | | | | | | History:The patient is a | | | | | | 69-year-old male with | | | | | | thyroid cancer, left | | | | | | parotid mass.Per [facility]: | | | | | | An asymptomatic left | | | | | | parotid mass was found | | | | | | incidentally duringa CT | | | | | | scan performed for sinus | | | | | | problems. The patient | | | | | | had a thyroidectomy | | | | | | forthyroid cancer in | | | | | | 2000. Gross | | | | | | Description:One specimen | | | | | | is received fresh | | | | | | labeled "left parotid | | | | | | gland." Received is | | | | | | a20.0-gram, 7.1 x 3.2 x | | | | | | 2.1-cm irregular, | | | | | | lobular, yellow fatty to | | | | | | elizondo-duskyred fragment | | | | | | of tissue that is inked | | | | | | black and sectioned to | | | | | | reveal a 1.8 x1.0 x | | | | | | 0.5-cm portion of | | | | | | lobular, rubbery, elizondo | | | | | | salivary gland. Also | | | | | | notedare two possible | | | | | | lymph nodes measuring | | | | | | 0.7 x 0.5 x 0.4 and 2.6 | | | | | | x 2.1 x1.2-cm, which is | | | | | | bisected to reveal a | | | | | | smooth, elizondo-pink cut | | | | | | surface. Theremainder | | | | | | of the tissue is | | | | | | lobular, yellow fatty to | | | | | | white fibrous | | | | | | tissue.[place] | | | | | | sections are submitted. | | | | | | A portion of tissue is | | | | | | submitted [facility]. | | | | | | Cassette Index:A1-3, | | | | | | sections of salivary | | | | | | gland and surrounding | | | | | | tissueA4, one possible | | | | | | lymph node, bisected and | | | | | | half submittedA5, one | | | | | | possible lymph node | | | | | | entirely submittedA6, | | | | | | patient services representative section | | | | | | of | | | | | | specimenKM:DD:MT:Natasha | | | | | | malia Diagnostician: | | | | | | Luma Calle Ph.D., | | | | | | | | | | | | M.D.PathologistElectroni | | | | | | anthony Signed | | | | | | 02/06/2005Comment: | | | | | | SOURCE OF SPECIMEN: Left | | | | | | parotid gland | | | | + + + + + + + + | Specimen | + + | | + + + + + + + | Performing | Address | City/State/Zipcode | Phone Number | | Organization | | | | + + + + + | [facility] | [address] | [place] [address] | | | PATHOLOGY | NELLA GARCIA | | | + + + + + | [facility] | [address] | [place] [address] | | | PATHOLOGY | NELLA GARCIA | | | + + + + + documented in this encounter Visit Diagnoses Not on filedocumented in this encounter
--- OUTSIDE RECORDS SUMMARY | ~2019-09-22 | XMS | Encounter Summary ---
Demographics + + + | Address | [address] | | | [place] [address] | + + + | Home Phone [...] | Organization | [facility] | | | and [...] Team Providers + +------+ + | Care Crystal Flat Grinder Name | Role | Phone | [...] Description | +--------+--------+ + + + | 01/13/ | Refill | [facility] [place] | Dano Wong | Medication Refill | | 2013 | | PULMONARY [address] | MD [address] | | | | | [place], | [place], [place] | | | | | [place] [address] | [address] | | | | | [phone] | | | +--------+--------+ + + + [...]
--- OUTSIDE RECORDS SUMMARY | ~2019-09-22 | XMS | Encounter Summary ---
Demographics + + + | Address | [address] | | | [place] [address] | + + + | Home Phone | | + + + | Preferred Language | Unknown | + + + | Marital Status | | + + + | Restorationist Affiliation | 1001 | + + + | Race | Unknown | + + + | Ethnic Group | Unknown | + + + Author + + + | Author | [facility] | | | and Jayjayana | + + + | Organization | [facility] | | | and [...] Team Providers + +------+ + | Care Peripheral Edp Equipment Operator Name | Role | Phone | + +------+ + | Chava Ibanez | PCP | | | MD | | | + +------+ + Reason for Visit + + + | Reason | Comments | + + + | Follow-up | Follow-up for bronchiectasis without complication. | + + + Follow Up (Routine) + +--------+ + + + + | Status | Reason | Specialty | Diagnoses / | Referred By | Referred To | | | | | Procedures | Contact | Contact | + +--------+ + + + + | Authorized | | Pulmonary | Diagnoses | Shamar | Roberto | | | | Disease / | | Chava | MD Jeffrey | | | | Pulmonology | Bronchiectas | MD Amador | [address] | | | | | is, | [address] | [place], | | | | | uncomplicate | [place] | [place] [address] | | | | | d (HCC) | Campos, | Phone: | | | | | Procedures | [place] | [phone] | | | | | F/U APPT | [phone] | Fax: | | | | | ERLINDA MEJIA | Phone: | [phone] | | | | | 04/22/19 | [phone] | | | | | | | Fax: | | | | | | | [phone] | | + +--------+ + + + + Encounter Details +--------+---------+ + + + | Date | Type | Department | Care Team | Description | +--------+---------+ + + + | 04/22/ | Office | [facility] | Jeffrey Mejia, | Bronchiectasis with | | 2019 | Visit | PULMONARY [address] | MD [address] | acute exacerbation | | | | [place], | [place], [place] | (FORM[facility]LY [facility]); | | | | [place] [address] | [address] | Bronchiectasis | | | | [phone] | | without complication | | | | | | (FORMERLY [facility]) | +--------+---------+ + + + Social History [...] Instructions Patient Instructions Jeffrey Mejia MD - 04/22/2019 1:00 PM PDT Azithromycin tablets Brand Names: Zithromax, Zithromax Tri-Devon, Zithromax Z-Devon What is this medicine? AZITHROMYCIN (az ith dafne MYE sin) is a macrolide antibiotic. It is used to treat or prevent certain kinds of bacterial infections. It will not work for colds, flu, or other viral infe ctions. How should I use this medicine? Take this medicine by mouth with a full glass of water. Follow the directions on the prescr iption label. The tablets can be taken with food or on an empty stomach. If the medicine ups ets your stomach, take it with food. Take your medicine at regular intervals. Do not take yo ur medicine more often than directed. Take all of your medicine as directed even if you thin k your are better. Do not skip doses or stop your medicine early. Talk to your cytology teacher regarding the use of this medicine in children. While this drug m ay be prescribed for children as young as 6 months for selected conditions, precautions do a pply. What side effects may I notice from receiving this medicine? Side effects that you should report to your doctor or health home care assistant as soon as p ossible: allergic reactions like skin rash, itching or hives, swelling of the face, lips, or tong ue bloody or watery diarrhea breathing problems chest pain fast, irregular heartbeat muscle weakness redness, blistering, peeling or loosening of the skin, including inside the mouth signs and symptoms of liver injury like dark yellow or brown urine; general ill feeling or flu-like symptoms; light-colored stools; loss of appetite; nausea; right upper belly pain ; unusually weak or tired; yellowing of the eyes or skin white patches or sores in the mouth unusually weak or tired Side effects that usually do not require medical attention (report to your doctor or health home care assistant if they continue or are bothersome): diarrhea nausea stomach pain vomiting What may interact with this medicine? Do not take this medicine with any of the following medications: lincomycin This medicine may also interact with the following medications: antacids that contain aluminum or magnesium control pills certain medicines for irregular heart beat like amiodarone, bepridil, dofetilide, encain xochitl, flecainide, propafenone, quinidine cyclosporine digoxin nelfinavir phenytoin warfarin What if I miss a dose? If you miss a dose, take it as soon as you can. If it is almost time for your next dose, ta ke only that dose. Do not take double or extra doses. Where should I keep my medicine? Keep out of the reach of children. Store at room temperature between 15 and 30 degrees C (59 and 86 degrees F). Throw away any unused medicine after the expiration date. What should I tell my health care provider before I take this medicine? They need to know if you have any of these conditions: history of blood diseases, like leukemia history of irregular heartbeat kidney disease liver disease myasthenia gravis an unusual or allergic reaction to azithromycin, erythromycin, other macrolide antibioti cs, foods, dyes, or preservatives or trying to get breast-feeding What should I watch for while using this medicine? Tell your doctor or healthcare professional if your symptoms do not start to get better or if they get worse. Do not treat diarrhea with over the counter products. Contact your doctor if you have diarr hea that lasts more than 2 days or if it is severe and watery. This medicine can make you more sensitive to the sun. Keep out of the sun. If you cannot av oid being in the sun, wear protective clothing and use sunscreen. Do not use sun lamps or ta nning beds/booths. NOTE:This sheet is a summary. It may not cover all possible information. If you have questi ons about this medicine, talk to your doctor, pharmacist, or health care provider. Copyright 2019 Elsevier documented in this encounter Progress Notes Jeffrey Mejia MD - 04/22/2019 1:00 PM PDTFormatting of this note might be different f rom the original. Pulmonary Follow Up 04/22/2019 [facility] Abhijitmerle Bigg Monk is a 83 y.o. male patient of Chava Ibanez MD here today for follo w up of bronchiectasis. It has been 12 months since our last clinic appointment. At their last visit, we planned t o follow up in 1 year. Since the last visit he feels like their symptoms are stable. The y have have had any significant acute illnesses. He reports 1 bronchiectasis exacerbations requiring antibiotics. Occurred about 2 months ago but is uncertain. They are currently are on Pulmicort. The regimen consists of 180 mcg/puff, 1 inhalation tw ice daily. He does feel like this medication regimen is decreasing their symptoms. Pulmicor t decreases coughing per report. Currently they are able to walk 1 mile at their own pace on level ground before becoming sy mptomatic. The patient is not exercising regularly. They are not enrolled in cardiac/pulmona ry rehabilitation or other physical therapy. The patient are not practicing bronchial hygiene behaviors. Rachel does cough chronically over the last couple of weeks, and does produce mucous. The mucous is yellow in color. They have not had hemoptysis since our last appointment. He has not been evaluated for nocturnal oxygen and does not use it. Rachel does not use a bronchodilator. He does not had symptoms of heartburn or acid reflux. They have not had recent or symptoms of nasal congestion, runny nose or post nasal drip. The patient have received this year's influenza vaccination. They are up to date with thei r Pneumovax and Prevnar 13. Past Medical History Past Medical History: Diagnosis [...] Allergies: Allergies Allergen Reactions Sulfa Antibiotics Rash Sulfasalazine Rash Medications: Current Outpatient Medications: budesonide (PULMICORT FLEXHALER) 180 mcg/puff inhaler, Inhale 1 puff into the lungs 2 times daily., Disp: 3 Inhaler, Rfl: 3 CARTIA XT 120 MG 24 hr capsule, Take 240 mg by mouth Daily., Disp: , Rfl: 3 Cholecalciferol (VITAMIN D-3) 2000 units CAPS, Take 2,000 Units by mouth Daily., Disp: , Rfl: cyanocobalamin (VITAMIN B-12) 500 mcg tablet, Take 500 mcg by mouth Daily., Disp: , Rf l: diltiazem (CARDIZEM CD) 240 MG 24 hr capsule, Take 240 mg by mouth Daily., Disp: , Rfl : doxazosin (CARDURA) 2 mg tablet, Take 1 tablet by mouth nightly., Disp: , Rfl: esomeprazole (NEXIUM) 40 mg capsule, Take 40 mg by mouth Daily., Disp: , Rfl: finasteride (PROSCAR) 5 mg tablet, Take 1 tablet by mouth Daily., Disp: , Rfl: folic acid (FOLVITE) 800 MCG tablet, Take 400 mcg by mouth Daily., Disp: , Rfl: levothyroxine (SYNTHROID) 175 MCG tablet, Take 175 mcg by mouth every morning (before breakfast)., Disp: , Rfl: metoprolol succinate (TOPROL-XL) 100 mg ER tablet, Take 100 mg by mouth Daily., Disp: , Rfl: 3 Multiple Vitamins-Minerals (EYE VITAMINS) CAPS, Take by mouth 2 times daily., Disp: , Rfl: ofloxacin (OCUFLOX) 0.3% ophthalmic solution, Apply 1 drop to eye 3 times daily., Disp : , Rfl: potassium chloride (K-DUR) 20 mEq ER tablet, Take 2 tablets am, 2 noon, 1 bedtime, Dis p: , Rfl: 2 PrednisoLONE Sodium Phosphate (PREDNISOL OP), Apply to eye. 1 drop in each eye once a day, Disp: , Rfl: Pyridoxine HCl (VITAMIN B-6) 100 MG tablet, Take 100 mg by mouth Daily., Disp: , Rfl: Thiamine HCl (VITAMIN B-1) 250 MG tablet, Take 250 mg by mouth Daily., Disp: , Rfl: triamterene-hydrochlorothiazide (MAXZIDE) 75-50 mg per tablet, Take 1 tablet by mouth Daily., Disp: , Rfl: valsartan (DIOVAN) 320 MG tablet, Take 1 tablet by mouth Daily., Disp: , Rfl: Immunizations: Immunization History Administered Date(s) Administered INFLUENZA 65 Y OR >, TRIVALENT HIGH-DOSE 06/16/2014, 07/23/2015, 07/18/2016 INFLUENZA PF 18 Y OR >,TRIVALENT RECOMBINANT 06/03/2012, 07/29/2013, 07/09/2015 INFLUENZA PF 65 Y OR >,TRIVALENT (FLUAD) 10/06/2017 INFLUENZA PF TRIVALENT(PED/ADOL/ADULT), PSKT 06/26/2010, 06/29/2011, 06/03/2012, 2011, 07/05/2013, 07/29/2013 INFLUENZA QUADR W/PRES (PED/ADOL/ADULT) MULTIDOSE 07/21/2008, 06/05/2009 PNEUMOCOCCAL CONJUGATE 13-VALENT (PCV13) 04/25/2016 PNEUMOCOCCAL POLYSACCHARIDE 23-VALENT (PPSV23) 04/27/2015 ZOSTER, 1 DOSE (ZOSTAVAX) 06/03/2012 Objective BP 152/82 | Pulse 54 | Ht 1.816 m (5' 11.5") | Wt 92.8 kg (204 lb 9.4 oz) | SpO2 99% Co mment: RA | BMI 28.14 kg/m Appearance: Alert, cooperative, no distress, appears [...] Extremities: Extremities normal, atraumatic, no cyanosis, clubbing. 1+ edema to the midcalf bilaterally. Skin: Warm and dry Lymph nodes: Cervical and supraclavicular nodes normal Neurologic: Gait normal Data: None. Assessment 1. Bronchiectasis exacerbation symptoms consistent with a subacute bronchiectasis exace rbation. Upon further reflection it was decided that treatment with antibiotics is reasonab le. 2. Bronchiectasis at the time of the patient's last clinic appointment his dose of Pulm icort was decreased from 2 puffs twice a day to 1 puff twice a day. No worsening of the pat ient's symptoms was reported. Over the last 12 months the patient has had 2 probable bronch iectasis exacerbations (1 noted above) requiring antibiotics. Mr. Monk was encouraged to initiate bronchial hygiene behaviors. This could include regula r scheduled exercise or the use of a device such as an Acapella. We also discussed lowering his dose of Pulmicort. The patient is open to this option. Plan 1. Decrease Pulmicort to 180 mcg/puff, 1 inhalation once daily. 2. Azithromycin over 5 days. 3. High-dose seasonal influenza vaccination is recommended for June 2019. 4. Pulmonary clinic follow-up appointment in 12 months time. CC: Chava Ibanez MD documented in this encounter Plan of Treatment Not on filedocumented as of this encounter Visit Diagnoses + + | Diagnosis | + + | Bronchiectasis with acute exacerbation (HCC) Bronchiectasis with acute exacerbation | + + | Bronchiectasis without complication (HCC) Bronchiectasis without acute exacerbation | + + documented in this encounter
--- OUTSIDE RECORDS SUMMARY | ~2019-09-22 | XMS | Encounter Summary ---
Demographics + + + | Address | [address] | | | [place] [address] | + + + | Home Phone | | + + + | Preferred Language | Unknown | + + + | Marital Status | | + + + | Congregational Affiliation | 1001 | + + + | Race | Unknown | + + + | Ethnic Group | Unknown | + + + Author + + + | Author | [facility] | | | and Jayjayana | + + + | Organization | [facility] | | | and [place] [...] Team Providers + +------+ + | Care Airplane Coverer Name | Role | Phone | + +------+ + | Chava Ibanez PCP | | | MD | | | + +------+ + Reason for Visit +---------+ + | Reason | Comments | +---------+ + | Results | | +---------+ + Encounter Details +--------+ + + + + | Date | Type | Department | Care Team | Description | +--------+ + + + + | 05/26/ | Telephone | [facility] [place] | Kade Wheat MD | Results | | 2012 | | GASTROENTEROLOGY | [address], [place] | | | | | [address] [place] | [address] [place], [place] | | | | | [address] [place], [place] | [address] | | | | | [address] | | | | | | [phone] | | | +--------+ + + + [...]
--- OUTSIDE RECORDS SUMMARY | ~2019-09-22 | XMS | Encounter Summary ---
Demographics + + + | Address | [address] | | | [place] [address] | + + + | Home Phone | | + + + | Preferred Language | Unknown | + + + | Marital Status | | + + + | Advent Affiliation | ADV | + + + [...] Providers + +------+ + | Care Senior Packaging Engineer Name | Role | Phone | [...] + | 11/05/ | Refill | [facility] | Estuardo [place]o, | Refill Request | | 2018 | | [place] [address] | [address] | | | | | [place], [place] | [place], [place] [address] | | | | | [address] | [phone] | | | | | [phone] | | | +--------+--------+ + + + [...]
--- OUTSIDE RECORDS SUMMARY | ~2019-09-22 | XMS | Encounter Summary ---
Demographics + + + | Address | [address] | | | [place] [address] | + + + | Home Phone | | + + + | Preferred Language | Unknown | + + + | Marital Status | | + + + | Samaritan Affiliation | ADV | + + + | Race | White | + + + | Ethnic Group | Not or | + + + Author + + + | Author | [facility] | + + + | Organization | [facility] | + [...] Team Providers + +------+ + | Care Crewman Armoured Personnel Carrier M113 Name | Role | Phone | + [...] St | | | | | [place], [place] | [place], [place] [address] | | | | | [address] | [phone] | | | | | [phone] | | | +--------+--------+ + + + [...]
--- OUTSIDE RECORDS SUMMARY | ~2019-09-22 | XMS | Encounter Summary ---
Demographics + + + | Address | [address] | | | [place] [address] | + + + | Home Phone | | + + + | Preferred Language | Unknown | + + + | Marital Status | | + + + | Voodoo Affiliation | ADV | + + + | Race | White | + + + | Ethnic Group | Not or | + + + Author + + + | Author | [facility] | + + + | Organization | [facility] | + + + | [...] Team Providers + +------+ + | Care Court Administrator Name | Role | Phone | + +------+ + | No Pcp Per Patient | PCP | Unavailable | + +------+ + Reason for Visit + + + | Reason | Comments | + + + | Lab Results | PSA is better | + + + Encounter Details +--------+ + + + + | Date | Type | Department | Care Team | Description | +--------+ + + + + | 03/01/ | Telephone | [facility] | Estuardo Lindo, | Lab Results (PSA is | | 2018 | | [place] [address] | [address] | better) | | | | [place], [place] | [place] [address] | | | | | [address] | [phone] | | | | | [phone] | | | +--------+ + + + [...]
--- OUTSIDE RECORDS SUMMARY | ~2019-09-22 | XMS | Encounter Summary ---
Demographics + + + | Address | [address] | | | [place] [address] | + + + | Home Phone | | + + + | Preferred Language | Unknown | + + + | Marital Status | | + + + | Mormon Affiliation | ADV | + + + [...] Providers + +------+ + | Care Manager Interventional Name | Role | Phone | + [...] | | [place], [place] | [place] [address] | | | | | [address] | [phone] | | | | | | | [...] Testing Performed at: [facility] CLIA: [id number] - [address] | [facility] | | [place] [address] | - [place] | + + + + + + + + | Performing | Address | City/State/Zipcode | Phone Number | | Organization | | | | + + + + + | [facility] | [address] | [place] | [phone] | | [place] | | | | + + + + + documented in this encounter Visit Diagnoses Not on filedocumented in this encounter"
--- OUTSIDE RECORDS SUMMARY | ~2019-09-22 | XMS | Encounter Summary ---
Demographics + + + | Address | [address] | | | [place] [address] | + + + | Home Phone | | + + + | Preferred Language | Unknown | + + + | Marital Status | | + + + | Adventist Affiliation | ADV | + + + [...] Providers + +------+ + | Care Manager City Name | Role | Phone | + +------+ + PCP | Unavailable | + +------+ + Encounter Details +--------+ + + + + | Date | Type | Department | Care Team | Description | +--------+ + + + + | 12/26/ | [facility] | | Letter, Clinic | [...] as of this encounter Progress Notes Interface, Director Prison In - 04/27/2005 12:30 AM PDT [id number] 12/26/2004 12/26/2004 [id number] LINCOLN Zheng [place] [address] [place] [address] or Department of Otolaryngology - PV01 December 26, 2004 Mckeon M.D. [facility] [address] [place] [address] RE: GURWINDER STARK MR #: [id number] Dear Dr. 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 I appreciate the chance to do so. A full history and physical including flexible endoscopy was done and is detailed in my handwritten notes. The summary of my findings is Mr. Stark is an otherwise reasonably healthy 69-year-old gentleman who was discovered to have a left parotid mass on the CT done for other reasons. A workup of this include a CT-guided biopsy which has really been inconclusive. 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 It is within the anterior aspect of the deep lobe, but is really not very palpable, although perhaps with the CT scan guiding me, I can feel a fullness in the area. He has no facial nerve or other neurotropic symptomatology. There is no history of skin malignancy to suggest it might be metastatic. Mr. Stark and I had a long discussion about the pros and cons of management in this situation. 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 Its location is such that I think a standard parotidectomy with removal of the deep lobe from underneath the nerve will take care of this without having to displace it or cause significant motion disorder. I appreciate the chance to see him. I will keep you posted as I work these issues through. Yours sincerely, Kade Frazier M.D., Ph.D. Professor - Head and Neck Surgery Department of Otolaryngology/Head and Neck Surgery [facility] PV-01 FAX [phone] email - [email or web address] / [id number] / [id number] / [id number] / [id number] C: 01/06/2005 amm cc: Magnus Holcomb M.D. FAX: [phone] documented i n this encounter Plan of Treatment Not on filedocumented as of this encounter Visit Diagnoses Not on filedocumented in this encounter"
--- OUTSIDE RECORDS SUMMARY | ~2019-09-22 | XMS | Encounter Summary ---
Demographics + + + | Address | [address] | | | [place] [address] | + + + | Home Phone | | + + + | Preferred Language | Unknown | + + + | Marital Status | | + + + | Roman Catholic Affiliation | ADV | + + + | Race | White | + + + | Ethnic Group | Not or | + + + Author + + + | Author | [facility] | + + + | Organization | [facility] | + + + [...] Team Providers + +------+ + | Care Electric Motor Repairman Name | Role | Phone | + [...] | ([address]ressin | | | | [place], [place] | [place] [address] | follow-up, low | | | | [address] | [phone] | potassium) | | | | [phone] | | | +--------+ + + + [...]
--- OUTSIDE RECORDS SUMMARY | ~2019-09-22 | XMS | Encounter Summary ---
Demographics + + + | Address | [address] | | | [place] [address] | + + + | Home Phone | | + + + | Preferred Language | Unknown | + + + | Marital Status | | + + + | Jew Affiliation | 1001 | + + + | Race | Unknown | + + + | Ethnic Group | Unknown | + + + Author + + + | Author | [facility] | | | and Jayjayana | + + + | Organization | [facility] | | | [...] Team Providers + +------+ + | Care Osteopathy Doctor Name | Role | Phone | + +------+ + PCP | Unavailable | + +------+ + Encounter Details +--------+ + + + + | Date | Type | Department | Care Team | Description | +--------+ + + + + | 11/07/ | Hospital | [facility] | Dano Wong | | | 2011 | Encounter | MED CTR XRAY [address] | [place] [address] [address] | | | | | [place] | [place], [place] | | | | | [place] [address] | [address] | | | | | [phone] | | | +--------+ + + + [...] | + +--------+ + + + | XR CHEST PA AND | | 11/07/2011 | | Results for this | | LATERAL | | 11:59 AM | | procedure are in the | | | | PST | | results section. | + +--------+ + + + documented in this encounter Results XR Chest PA and Lateral (11/07/2011 11:59 AM PST) + + | Specimen | + + | | + + + + + | Narrative | Performed At | + + + | [facility] Diagnostic Imaging Department | [facility] | | [address] | [facility] | | TWO VIEW CHEST 11/07/2011 | DIAG IMG | | CLINICAL HISTORY: BRONCHIECTASIS. COMPARISON: 2007. | | | FINDINGS: The lungs are hyperinflated consistent with underlying | | | COPD. There is eventration of the right hemidiaphragm with colonic | | | interposition. Heart size is stable and borderline prominent. | | | Ther e is no heart failure. No pleural effusion is identified on | | | the lateral projections. Bones are diff usely osteopenic. | | | IMPRESSION: 1. HYPERINFLATION. 2. RIGHT LUNG BASE OPACITY | | | CORRELATING WITH DIAPHRAGMATIC EVENTRATION WITH BOWEL INTERPOSITION. | | | Dictated Date/Time: 11/07/2011 13:40 Transcribed Date/Time: | | | 11/07/2011 13:47 Program Director/Air Personality: <Electronically Signed | | | by Ryan Cedillo MD> 11/08/11 1311 | | + + + + + | Procedure Note | + + | Edgar, Rad Conversion - 11/04/2013 4:43 PM [facility] | | Diagnostic Imaging Department [address] | | TWO VIEW CHEST 11/07/2011 CLINICAL HISTORY: | | BRONCHIECTASIS. COMPARISON: 2007. FINDINGS: The lungs are hyperinflated consistent | | with underlying COPD. There is eventration of the right hemidiaphragm with colonic | | interposition. Heart size is stable and borderline prominent. There is no heart | | failure. No pleural effusion is identified on the lateral projections. Bones are | | diffusely osteopenic. IMPRESSION: 1. HYPERINFLATION. 2. RIGHT LUNG BASE OPACITY | | CORRELATING WITH DIAPHRAGMATIC EVENTRATION WITH BOWEL INTERPOSITION. Dictated | | Date/Time: 11/07/2011 13:40Transcribed Date/Time: 11/07/2011 13:47Transcriptionist: | | <Electronically Signed by Ryan Cedillo MD> 11/08/11 1311 | | | |FINDINGS: The lungs are hyperinflated consistent with underlying COPD. There is eventrati on of the | |right hemidiaphragm with colonic interposition. Heart size is stable and borderline promin ent. Ther | |e is no heart failure. No pleural effusion is identified on the lateral projections. Bone s are diff | |usely osteopenic. | | | |IMPRESSION: | |1. HYPERINFLATION. | | | |2. RIGHT LUNG BASE OPACITY CORRELATING WITH DIAPHRAGMATIC EVENTRATION WITH BOWEL INTERPOSIT ION. | | | |Dictated Date/Time: 11/07/2011 13:40 | |Transcribed Date/Time: 11/07/2011 13:47 | |Program Director/Air Personality: | |<Electronically Signed by Ryan Cedillo MD> 11/08/11 1311 | + + + +---------+ + + | Performing | Address | City/State/Zipcode | Phone Number | | Organization | | | | + +---------+ + + | [place] | | | | | [place] | | | | + +---------+ + + documented in this encounter Visit Diagnoses Not on filedocumented in this encounter"
--- OUTSIDE RECORDS SUMMARY | ~2019-09-22 | XMS | Encounter Summary ---
Demographics + + + | Address | [address] | | | [place] [address] | + + + | Home Phone | | + + + | Preferred Language | Unknown | + + + | Marital Status | | + + + | Scientology Affiliation | 1001 | + + + | Race | Unknown | + + + | Ethnic Group | Unknown | + + + Author + + + | Author | [facility] | | | and Jayjayana | + + + | Organization | [facility] | | | and [...] Team Providers + +------+ + | Care Starch Factory Laborer Name | Role | Phone | + [...] [address] | | | | | [place], | [place], [place] | | | | | [place] [address] | [address] | | | | | [phone] | | | +--------+--------+ + + + [...]
--- OUTSIDE RECORDS SUMMARY | ~2019-09-22 | XMS | Encounter Summary ---
Demographics + + + | Address | [address] | | | [place] [address] | + + + | Home Phone | | + + + | Preferred Language | Unknown | + + + | Marital Status | | + + + | Restorationist Affiliation | 1001 | + + + | Race | Unknown | + + + | Ethnic Group | Unknown | + + + Author + + + | Author | [facility] | | | and Jayjayana | + + + | Organization | [facility] | | | and [...] Team Providers + +------+ + | Care Railroad Operating Engineer Name | Role | Phone | + +------+ + PCP | Unavailable | + +------+ + Encounter Details +--------+ + + + + | Date | Type | Department | Care Team | Description | +--------+ + + + + | 10/21/ | Hospital | [facility] | Dano Wong | | | 2004 | Encounter | MED CTR GENERIC OP | [place] [address] [address] | | | | | CONV DEPT [address] | [place], [place] | | | | | [place], | [address] | | | | | [place] [address] | | | | | | [phone] | | | +--------+ + + + [...]
--- OUTSIDE RECORDS SUMMARY | ~2019-09-22 | XMS | Encounter Summary ---
Demographics + + + | Address | [address] | | | [place] [address] | + + + | Home Phone | | + + + | Preferred Language | Unknown | + + + | Marital Status | | + + + | Orthodoxy Affiliation | 1001 | + + + | Race | Unknown | + + + | Ethnic Group | Unknown | + + + Author + + + | Author | [facility] | | | and Jayjayana | + + + | Organization | [facility] | | | and [place] | [...] Team Providers + +------+ + | Care Buoy Tender Name | Role | Phone | + +------+ + PCP | Unavailable | + +------+ + Encounter Details +--------+ + + + + | Date | Type | Department | Care Team | Description | +--------+ + + + + | 09/04/ | Hospital | [facility] | Dano Wong | | | 2005 | Encounter | MED CTR XRAY [address] | [place] [address] [address] [address] | | | | | [place] | [place], [place] | | | | | [place] [address] | [address] | | | | | [phone] | | | +--------+ + + + [...]
--- OUTSIDE RECORDS SUMMARY | ~2019-09-22 | XMS | Encounter Summary ---
Demographics + + + | Address | [address] | | | [place] [address] | + + + | Home Phone | | + + + | Preferred Language | Unknown | + + + | Marital Status | | + + + | Synagogue Affiliation | 1001 | + + + | Race | Unknown | + + + | Ethnic Group | Unknown | + + + Author + + + | Author | [facility] | | | and Jayjayana | + + + | Organization | [facility] | | | and [place] [...] Team Providers + +------+ + | Care Developer Programmer Name | Role | Phone | + +------+ + PCP | Unavailable | + +------+ + Encounter Details +--------+ + + + + | Date | Type | Department | Care Team | Description | +--------+ + + + + | 09/04/ | Hospital | [facility] | Dano Wong | | | 2005 | Encounter | MED CTR XRAY [address] | [address] [address] [address] | | | | | [place] | [place], [place] | | | | | [place] [address] | [address] | | | | | [phone] | | | +--------+ + + + [...]
--- OUTSIDE RECORDS SUMMARY | ~2019-09-22 | XMS | Encounter Summary ---
Demographics + + + | Address | [address] | | | [place] [address] | + + + | Home Phone | | + + + | Preferred Language | Unknown | + + + | Marital Status | | + + + | Druze Affiliation | ADV | + + + | Race | White | + + + | Ethnic Group | Not or | + + + Author + + + | Author | [facility] | + + + | Organization | [facility] | + + + | Address [...] Team Providers + +------+ + | Care Pharmacist Intern Name | Role | Phone | + [...] St | | | | | [place], [place] | [place] [address] | | | | | [address] | [phone] | | | | | [phone] | | | +--------+--------+ + + + [...]
--- OUTSIDE RECORDS SUMMARY | ~2019-09-22 | XMS | Encounter Summary ---
Demographics + + + | Address | [address] | | | [place] [address] | + + + | Home Phone | | + + + | Preferred Language | Unknown | + + + | Marital Status | | + + + | Judaism Affiliation | ADV | + + + | Race | White | + + + | Ethnic Group | Not or | + + + Author + + + | Author | [facility] | + + + | Organization | [facility] | + + + | [...] Team Providers + +------+ + | Care Staff Air Tactical Officer Name | Role | Phone | + +------+ + | Chava Iabnez MD | PCP | | + +------+ [...] [id number] | | | | | | [place], [place] | | | | | | [address] | | | | | | [phone] | | | +--------+ + + + [...] [place]., | | | | | | [place], [place], | | | | | | [...] 11/26/04, | | | | | | [email or web address]. Final | | | | | | [...] + | Ordered by Bg Thurston | [facility] | | | DEPARTMENT OF | | | PATHOLOGY | + + + + + + + + | Performing | Address | City/State/Zipcode | Phone Number | | Organization | | | | + + + + + | [facility] DEPARTMENT OF | [address] | [place] [address] | | | PATHOLOGY | [address] | | | + + + + + | [place] DEPARTMENT OF | [address] | [place] [address] | | | PATHOLOGY | [address] | | | + + + + + documented in this encounter Visit Diagnoses Not on filedocumented in this encounter"
--- OUTSIDE RECORDS SUMMARY | ~2019-09-22 | XMS | Encounter Summary ---
Demographics + + + | Address | [address] | | | [place] [address] | + + + | Home Phone | | + + + | Preferred Language | Unknown | + + + | Marital Status | | + + + | Presybeterian Affiliation | 1001 | + + + | Race | Unknown | + + + | Ethnic Group | Unknown | + + + Author + + + | Author | [facility] | | | and Jayjayana | + + + | Organization | [facility] | | | and [place] [...] Team Providers + +------+ + | Care Mirror Specialist Name | Role | Phone | + +------+ + PCP | Unavailable | + +------+ + Encounter Details +--------+ + + + + | Date | Type | Department | Care Team | Description | +--------+ + + + + | 11/07/ | Hospital | [facility] | Dano Wong | | | 2011 | Encounter | MED CTR XRAY [address] | [place] [address] [address] [address] | | | | | [place] | [place], [place] | | | | | [place] [address] | [address] | | | | | [phone] | | | +--------+ + + + [...] Performed At | + + + | [facility] Diagnostic Imaging Department | [facility] | | [address] | [facility] | | TWO VIEW CHEST 11/07/2011 | [...] Transcribed Date/Time: | | | 11/07/2011 13:47 Climatologist: <Electronically Signed | | | by Ryan Cedillo MD> 11/08/11 1311 | | + + + + + | Procedure Note | + + | Edgar, Rad Conversion - 11/04/2013 4:43 PM [facility] | | Diagnostic Imaging Department [address] | | TWO VIEW CHEST 11/07/2011 [...] 13:40 | |Transcribed Date/Time: 11/07/2011 13:47 | |Climatologist: | |<Electronically Signed by Ryan Cedillo MD> [...]
--- OUTSIDE RECORDS SUMMARY | ~2019-09-22 | XMS | Encounter Summary ---
Demographics + + + | Address | [address] | | | [place] [address] | + + + | Home Phone | | + + + | Preferred Language | Unknown | + + + | Marital Status | | + + + | Uatsdin Affiliation | ADV | + + + | Race | White | + + + | Ethnic Group | Not or | + + + Author + + + | Author | [facility] | + + + | Organization | [facility] | + + + [...] Team Providers + +------+ + | Care Group Tester Name | Role | Phone | + [...] | | 2019 | Only | [address] [facility] | [phone] | | | | | [place] | | | | | | [address] | | | +--------+ + + + [...] Testing Performed at: [place] [facility] CLIA: [id number] - [address] | [facility] | | [place] [address] | - [place] | + + + + + + + + | Performing | Address | City/State/Zipcode | Phone Number | | Organization | | | | + + + + + | [facility] - | [address] | [place] | [phone] | | [place] | | | | + + + + + documented in this encounter Visit Diagnoses Not on filedocumented in this encounter"
--- OUTSIDE RECORDS SUMMARY | ~2019-09-22 | XMS | Encounter Summary ---
Demographics + + + | Address | [address] | | | [place] [address] | + + + | Home Phone | | + + + | Preferred Language | Unknown | + + + | Marital Status | | + + + | Samaritan Affiliation | 1001 | + + + | Race | Unknown | + + + | Ethnic Group | Unknown | + + + Author + + + | Author | [facility] | | | and Jayjayana | + + + | Organization | [facility] | | | and [...] Team Providers + +------+ + | Care Housekeeping Laundry Worker Name | Role | Phone | + +------+ + PCP | Unavailable | + +------+ + Encounter Details +--------+ + + + + | Date | Type | Department | Care Team | Description | +--------+ + + + + | 10/21/ | Hospital | [facility] | Dano Wong | | | 2004 | Encounter | MED CTR GENERIC OP | [address] [address] [address] | | | | | CONV DEPT [address] | [place], [place] | | | | | [place], | [address] | | | | | [place] [address] | | | | | | [phone] | | | +--------+ + + + [...]
--- OUTSIDE RECORDS SUMMARY | ~2019-09-22 | XMS | Encounter Summary ---
Demographics + + + | Address | [address] | | | [place] [address] | + + + | Home Phone | | + + + | Preferred Language | Unknown | + + + | Marital Status | | + + + | Presybeterian Affiliation | 1001 | + + + | Race | Unknown | + + + | Ethnic Group | Unknown | + + + Author + + + | Author | [facility] | | | and Jayjayana | + + + | Organization | [facility] | | | and [place] [...] Team Providers + +------+ + | Care Pasta Maker Name | Role | Phone | + [...] rectum | [address] | [address] [place], | | | | | and anus | [place], [place] | [place] [address] | | | | | Personal | [address] [place] | [place], | | | | | history of | [place], [place] | [place] [address] | | | | | colonic | [address] | Phone: | | | | | polyps | Phone: | [phone] | | | | | Reflux | [phone] | Fax: | | | | | esophagitis | Fax: | [phone] | | | | | Procedures | [phone] | | | | | | CO UPPER GI | | | | | | | | | | | | | | ENDOSCOPY,DI | | | | | | | AGNOSIS CO | | | | | | | UPPER GI | | | | | | | ENDOSCOPY,BI | | | | | | | OPSY CO | | | | | | | COLONOSCOPY, | | | | | | | DIAGNOSTIC | | | | | | | CO | | | | | | | [...] + + | 05/05/ | Office | [facility] | Kade Wheat MD | Hemorrhage of rectum | | 2012 | Visit | GASTROENTEROLOGY | [address] [place], [place] | and anus (Primary | | | | [address] [place] | [address] [address] [place] | Dx); Personal | | | | [address] [place] | [address] | history of colonic | | | | [address] | | polyps; Reflux | | | | [phone] | | esophagitis | +--------+---------+ + + [...] made to ensure accuracy; however, inadvertent computerized food demonstrator errors may be pre sent. documented in [...]
--- OUTSIDE RECORDS SUMMARY | ~2019-09-22 | XMS | Encounter Summary ---
Demographics + + + | Address | [address] | | | [place] [address] | + + + | Home Phone | | + + + | Preferred Language | Unknown | + + + | Marital Status | | + + + | Lutheran Affiliation | ADV | + + + [...] Team Providers + +------+ + | Care Coordinate Measuring Machine Operator Name | Role | Phone | + +------+ + | No Pcp Per Patient | PCP | Unavailable | + +------+ + Reason for Visit + + + | Reason | Comments | + + + | Chart Review | labs due | + + + Encounter Details +--------+ + + + + | Date | Type | Department | Care Team | Description | +--------+ + + + + | 03/03/ | Telephone | [facility] | Estuardo Lindo, | Chart Review (labs | | 2018 | | [place] [address] | [address] | due) | | | | [place], [place] | [place], [place] [address] | | | | | [address] | [phone] | | | | | [phone] | | | +--------+ + + + [...] as of this encounter Plan of Treatment + +------+--------+ + + | Name | Type | Priori | Associated Diagnoses | Order Schedule | | | | ty | | | + +------+--------+ + + | PSA, TOTAL | Lab | Routin | Elevated PSA | Expected: | | MONITORING | | e | | 03/03/2019, Expires: | | | | | | 04/02/2020 | + +------+--------+ + + documented as of this encounter Visit Diagnoses + + | Diagnosis | + + | Elevated PSA - Primary Elevated prostate specific antigen (PSA) | + + documented in this encounter"
--- OUTSIDE RECORDS SUMMARY | ~2019-09-22 | XMS | Encounter Summary ---
Demographics + + + | Address | [address] | | | [place] [address] | + + + | Home Phone | | + + + | Preferred Language | Unknown | + + + | Marital Status | | + + + | Temple Affiliation | 1001 | + + + | Race | Unknown | + + + | Ethnic Group | Unknown | + + + Author + + + | Author | [facility] | | | and [place]jay[place] | + + + | Organization | [facility] | | | and [place] [...] Team Providers + +------+ + | Care Windows Application Developer Name | Role | Phone | + +------+ + | Chava Ibanez | PCP | | | MD | | | + +------+ + Reason for Visit + + + | Reason | Comments | + + + | Follow-up | Bronchiectasis | + + + Encounter Details +--------+---------+ + + + | Date | Type | Department | Care Team | Description | +--------+---------+ + + + | 02/07/ | Office | [facility] | Dano Wong | BRONCHIECTASIS | | 2013 | Visit | PULMONARY [address] | [place] [address] [address] | (Primary Dx); | | | | [place], | [place], [place] | [place], | | | | [place] [address] | [address] | OBSTRUCTIVE CHRONIC; | | | | [phone] | | Elevated rheumatoid | | | | | | factor; Sjogren's | | | | | | syndrome; PULMONARY | | | | | | FIBROSIS, | | | | | | POSTINFLAMMATORY; | | | | | | Obstructive sleep | | | | | | apnea; Rhinitis, | | | | | | chronic; | | | | | | Diaphragmatic | | | | | | eventration | +--------+---------+ + + + Social History [...] + + + | Blood Pressure | 152/88 | 02/07/2014 9:41 AM | | | | | PDT | | + + + + + | Pulse | 71 | 02/07/2014 9:41 AM | | | | | PDT | | + + + + + | Temperature | - | - | | + + + + + | Respiratory Rate | - | - | | + + + + + | Oxygen Saturation | 100% | 02/07/2014 9:41 AM | | | | | PDT | | + + + + + | Inhaled Oxygen | - | - | | | Concentration | | | | + + + + + | Weight | 95 kg (209 lb 6.4 | 02/07/2014 9:41 AM | | | | oz) | PDT | | + + + + + | Height | 181.6 cm (5' 11.5") | 02/07/2014 9:41 AM | | | | | PDT | | + + + + + | Body Mass Index | 28.8 | 02/07/2014 9:41 AM | | | | | PDT | | + + + + + documented in this encounter Patient Instructions Patient Instructions Dano Wong MD - 02/07/2014 9:46 AM PDTGet a flu shot each fall. Keep up your good work with your weight and using your inhaler daily. Try to get regular exercise. I think you are doing very well. Continue good hygiene to avoid catching colds. documented in this encounter Progress Notes Dano Wong MD - 02/07/2014 10:06 AM PDTFormatting of this note might be differen t from the original. Dano Wong MD [facility] [address] [place] [address] 02/07/2014 Rachel Monk 1935 History Rachel Monk is a 78 y.o. male followed for several respiratory problems. Our ongoing care is primarily focused on his bronchiectasis. Controlling his cough has been the primar y objective and he reports that it is doing well. He continues on Pulmicort 2 puffs twice d aily. In the past, he has tried reducing his Pulmicort dose from the current 2 puffs twice d aily down to 1 puff twice daily. However, within a few weeks of dose reduction he usually no tices increasing chest congestion and cough. He practices careful hygiene and did not acquire any respiratory infections this past winte r. He is producing very little mucus. He remains very compliant with his Pulmicort 2 puffs twice daily. Mr. Monk also has had some injuries to his chest. At about age 17, he had a football injur y. 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 We did obtain a chest x-ray in 2011 which did show an eventration of the right hemidiaphragm. In 2011, he was having some dry mouth and Dr. Boston did a lip biopsy and he was diagnosed with Sjogren's syndrome. On December 30, 2013, he had surgery on a hammertoe of his left foot and it is improving nicely . In 2011 he did have some elevated blood sugars. This caused him to increase his exercise an d also control his diet better. He lost about 25 pounds and has kept most of that off, but d id gain back about 10 pounds this winter. He continues to exercise relatively regularly. Pertinent Prior Medical History Before I first saw him in September 2004, he also had long-standing problems with upper airwa y congestion. Dr. Boston in [place] had performed to sinus surgeries. In late 2003 he deve loped worsening cough, recurrent respiratory infections, and he began having intermittent ni ght sweats and raising very thick mucus. He also had a large amount of ongoing sinus congest ion and postnasal drip. 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 He also had a positive rheumatoid factor although without overt signs or symptoms of rheumatoid arthritis. Cultures of his sputum showed a very heavy growth of Kle bsiella and he was treated with ciprofloxacin. He was also placed on an inhaled steroid, and following beginning inhaled budesonide, he noted very significant improvement. In 2005 his symptoms increased and we cultured methicillin sensitive staph aureus, as well as 2 species of Klebsiella, from his sputum. He was treated for 3 weeks with Augmentin. In 2006, Raoultella was cultured from his sputum he was treated with levofloxacin. A CT scan of his chest in September 2007 confirmed bronchiectasis. He also previously would p roduce some bronchial casts and significant mucous plugs at times. This has improved over years with use of the inhaled corticosteroid. Patient Active Problem List Diagnosis RHINITIS, CHRONIC OBSTRUCTIVE SLEEP APNEA BRONCHIECTASIS ABNORMAL CHEST XRAY PULMONARY FIBROSIS, POSTINFLAMMATORY ABNORMAL SPUTUM BRONCHITIS, OBSTRUCTIVE CHRONIC Diaphragmatic eventration Sjogren's syndrome Elevated rheumatoid factor Current Outpatient Prescriptions Medication Sig Dispense Refill budesonide (RHINOCORT AQUA) 32 mcg/nasal spray nasal spray 1 spray by Nasal route Daily . diltiazem (CARDIZEM CD) 240 MG 24 hr capsule Take 240 mg by mouth Daily. esomeprazole (NEXIUM) 40 mg capsule Take 40 mg by mouth Daily. finasteride (PROSCAR) 5 mg tablet Take 5 mg by mouth Daily. Flaxseed, Linseed, (EQL FLAX SEED OIL) 1000 MG CAPS Take 1 capsule by mouth Daily. folic acid (FOLVITE) 400 MCG tablet Take 400 mcg by mouth Daily. levothyroxine (SYNTHROID, LEVOTHROID) 137 MCG tablet Take 137mg by mouth one day a week levothyroxine (SYNTHROID, LEVOTHROID) 150 mcg tablet Take 150mg by mouth daily six days a week Multiple Vitamins-Minerals (EYE VITAMINS) CAPS Take by mouth 2 times daily. Henderson-3 Fatty Acids (OMEGA 3 PO) Take 450 mg by mouth 2 times daily. potassium chloride (KLOR-CON) 20 MEQ packet Take 40 mEq by mouth 3 times daily. prednisoLONE (PRED FORTE) 1% ophthalmic suspension one drop in each eye twice daily PrednisoLONE Sodium Phosphate (PREDNISOL OP) Apply to eye. 1 drop in each eye once a d ay PULMICORT FLEXHALER 180 MCG/ACT inhaler USE 2 INHALATIONS TWICE A DAY 3 each 3 Pyridoxine HCl (VITAMIN B-6) 100 MG tablet Take 200 mg by mouth Daily. telmisartan (MICARDIS) 40 mg tablet Take 40 mg by mouth Daily. Thiamine HCl (VITAMIN B-1 PO) Take by mouth. triamterene-hydrochlorothiazide (DYAZIDE) 37.5-25 MG per capsule 2 capsules by mouth da almaz vitamin B-12 (CYANOCOBALAMIN) 100 MCG tablet Take 50 mcg by mouth Daily. Allergies Allergen Reactions Sulfa Antibiotics Past Medical History was reviewed and updated in the electronic record. Review of Systems Cough is well controlled. No shortness of breath. Positive for dry eyes and dry mouth. Physical Examination: BP 152/88 | Pulse 71 | Ht 1.816 m (5' 11.5") | Wt 94.983 kg (209 lb 6.4 oz) | BMI 28.80 kg/ m2 | SpO2 100% General: Pleasant middle-aged man in no acute distress. He has some upper thoracic kyphosis . HEENT: Mildly small airway. No thrush. Mouth slightly dry. Neck: Normal circumference. Lungs: Normal resonance to percussion. Breath sounds mildly diminished throughout the chest . No crackles heard today. No wheezes or rhonchi. Heart: Regular rate and rhythm. No murmur or gallop. Extremities: No clubbing, cyanosis, or edema. No changes of the hands suggesting inflammato ry arthritis. Skin: No eczema. Warm and dry. Assessment: 1. BRONCHIECTASIS 2. BRONCHITIS, OBSTRUCTIVE CHRONIC He has radiographic evidence of right lower lobe bronchiectasis. At times he has had persis tent crackles in the right lower lung zone. CT scan of the chest has confirmed the presence of right lower lobe bronchiectasis. 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 His symptoms have responded well to chronic inhaled steroids. He is reluctant to consider reducing the dose of his inhaled steroid which is very reasonable, feeling that this dose is working well for him. 3. Elevated rheumatoid factor 4. Sjogren's syndrome He does have sicca syndrome. Sjogren's syndrome was confirmed by lip biopsy. He has manage d this with oral hard candies. This could relate to his positive rheumatoid factor as well. 5. PULMONARY FIBROSIS, POSTINFLAMMATORY He does have some mild focal areas of fibrosis and scarring on chest CT scan, but by variou s imaging studies this has not progressed. 6. Obstructive sleep apnea He was diagnosed with sleep apnea by another physician before he saw me. His sleep study [facility] October 15, 2004 showed an apnea hypopnea index of 17.6 but very minimal oxygen desaturat ion falling only to 89%. He did not tolerate CPAP and does not wish to try it in the future. He has lost significant weight since that sleep study and denies daytime sleepiness. 7. Rhinitis, chronic These symptoms have improved and he is not using any nasal sprays currently. 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 He had a couple episodes of chest trauma in his life that likely contributed. PLAN: 1. Continue Pulmicort Flexhaler 180 mcg strength, 2 puffs twice a day, rinsing throat aft er use. 2. Continue good hygiene to avoid respiratory infections. 3. He was congratulated on generally maintaining his weight reduction and continuing exerci se, and to avoid additional weight gain. 4. Flu vaccine is recommended each fall. 5. Followup in one year or earlier if problems. Dano Wong Portions of this documentation were transcribed using voice recognition software. Every eff ort has been made to ensure accuracy; however, unintended grammatical and/or spelling errors may be present due to inadvertent computerized mobile ui/ux designer errors. If there are any ques tions regarding the mobile ui/ux designer, please contact our office. documented in th is encounter Plan of Treatment Not on filedocumented as of this encounter Visit Diagnoses + + | Diagnosis | + + | BRONCHIECTASIS - Primary Bronchiectasis without acute exacerbation | + + | BRONCHITIS, OBSTRUCTIVE CHRONIC Obstructive chronic bronchitis without exacerbation | + + | Elevated rheumatoid factor Other and unspecified nonspecific immunological findings | + + | Sjogren's syndrome Sicca syndrome | + + | PULMONARY FIBROSIS, POSTINFLAMMATORY Postinflammatory pulmonary fibrosis | + + | Obstructive sleep apnea Obstructive sleep apnea (adult) (pediatric) | + + | Rhinitis, chronic Chronic rhinitis | + + | Diaphragmatic eventration Congenital anomaly of diaphragm | + + documented in this encounter
--- OUTSIDE RECORDS SUMMARY | ~2019-09-22 | XMS | Encounter Summary ---
Demographics + + + | Address | [address] | | | [place] [address] | + + + | Home Phone | | + + + | Preferred Language | Unknown | + + + | Marital Status | | + + + | Rastafari Affiliation | 1001 | + + + | Race | Unknown | + + + | Ethnic Group | Unknown | + + + Author + + + | Author | [facility] | | | and [place] | + + + | Organization | [facility] | | | and [place] | [...] Team Providers + +------+ + | Care Funeral Service Practitioner/Embalmer Name | Role | Phone | + [...] | PULMONARY [address] | [place] [address] [address] | | | | | [place], | [place], [place] | | | | | [place] [address] | [address] | | | | | [phone] | | | +--------+--------+ + + + [...]
--- OUTSIDE RECORDS SUMMARY | ~2019-09-22 | XMS | Encounter Summary ---
Demographics + + + | Address | [address] | | | [place] [address] | + + + | Home Phone | | + + + | Preferred Language | Unknown | + + + | Marital Status | | + + + | Restorationist Affiliation | 1001 | + + + | Race | Unknown | + + + | Ethnic Group | Unknown | + + + Author + + + | Author | [facility] | | | and [place] | + + + | Organization | [facility] | | [...] Team Providers + +------+ + | Care Entry Level Drafter Name | Role | Phone | + +------+ + | Chava Ibanez | PCP | | | MD | | | + +------+ + Reason for Visit +--------+ + | Reason | Comments | +--------+ + | Other | pharmacy change | +--------+ + Encounter Details +--------+ + + + + | Date | Type | Department | Care Team | Description | +--------+ + + + + | 11/12/ | Telephone | [facility] [place] | Jeffrey Mejia, | Other (pharmacy | | 2017 | | PULMONARY [address] | [address] | change ) | | | | [place], | [place], [place] | | | | | [place] [address] | [address] | | | | | [phone] | | | +--------+ + + + [...]
--- OUTSIDE RECORDS SUMMARY | ~2019-09-22 | XMS | Encounter Summary ---
Demographics + + + | Address | [address] | | | [place] [address] | + + + | Home Phone [...] + | Author | [facility] | | | and [place]jay[place] | + + + | Organization | [facility] | | | and [place] [...] Team Providers + +------+ + | Care Power Technician Name | Role | Phone | + [...] Description | +--------+--------+ + + + | 06/25/ | Refill | [facility] [place] | Jeffrey Mejia, | Medication Refill | | 2017 | | PULMONARY [address] | MD [address] | | | | | [place], | [place], [place] | | | | | [place] [address] | [address] | | | | | [phone] | | | +--------+--------+ + + + [...]
--- OUTSIDE RECORDS SUMMARY | ~2019-09-22 | XMS | Encounter Summary ---
Demographics + + + | Address | [address] | | | [place] [address] | + + + | Home Phone | | + + + | Preferred Language | Unknown | + + + | Marital Status | | + + + | Latter-Day Affiliation | ADV | + + + | Race | White | + + + | Ethnic Group | Not or | + + + Author + + + | Author | [facility] | + + + | Organization | [facility] | + + + | [...] Team Providers + +------+ + | Care Glue Spreader Name | Role | Phone | + [...] St | | | | | [place], [place] | [place], [place] [address] | | | | | [address] | [phone] | | | | | [phone] | | | +--------+ + + + [...]
--- OUTSIDE RECORDS SUMMARY | ~2019-09-22 | XMS | Encounter Summary ---
Demographics + + + | Address | [address] | | | [place] [address] | + + + | Home Phone | | + + + | Preferred Language | Unknown | + + + | Marital Status | | + + + | Rastafari Affiliation | 1001 | + + + | Race | Unknown | + + + | Ethnic Group | Unknown | + + + Author + + + | Author | [facility] | | | and [place] | + + + | Organization | [facility] | | | and [...] Team Providers + +------+ + | Care Mattress Stripper Name | Role | Phone | + +------+ + PCP | Unavailable | + +------+ + Encounter Details +--------+ + + + + | Date | Type | Department | Care Team | Description | +--------+ + + + + | 11/26/ | Hospital | [facility] | Parviz Holcomb, | | | 2004 | Encounter | MED CTR XRAY [address] | MD [address] | | | | | [place] | [place] | | | | | [place] [address] | [id number] | | | | | [phone] | | | +--------+ + + + [...]
--- OUTSIDE RECORDS SUMMARY | ~2019-09-22 | XMS | Encounter Summary ---
Demographics + + + | Address | [address] | | | [place] [address] | + + + | Home Phone | | + + + | Preferred Language | Unknown | + + + | Marital Status | | + + + | Jainism Affiliation | 1001 | + + + | Race | Unknown | + + + | Ethnic Group | Unknown | + + + Author + + + | Author | [facility] | | | and [place] | + + + | Organization | [facility] | | [...] Team Providers + +------+ + | Care Flexographic Press Helper Name | Role | Phone | [...] | change ) | | | | [place], | [place], [place] | | | | | [place] [address] | [address] | | | | | [phone] | | | +--------+ + + + [...]
--- OUTSIDE RECORDS SUMMARY | ~2019-09-22 | XMS | Encounter Summary ---
Demographics + + + | Address | [address] | | | [place] [address] | + + + | Home Phone | | + + + | Preferred Language | Unknown | + + + | Marital Status | | + + + | Restorationism Affiliation | 1001 | + + + | Race | Unknown | + + + | Ethnic Group | Unknown | + + + Author + + + | Author | [facility] | | | and [place] | + + + | Organization | [facility] | | | and [place] [...] Team Providers + +------+ + | Care Rn Field Name | Role | Phone | + [...] [address] | | | | | [place], | [place], [place] | | | | | [place] [address] | [address] | | | | | [phone] | | | +--------+--------+ + + + [...]
--- OUTSIDE RECORDS SUMMARY | ~2019-09-22 | XMS | Encounter Summary ---
Demographics + + + | Address | [address] | | | [place] [address] | + + + | Home Phone | | + + + | Preferred Language | Unknown | + + + | Marital Status | | + + + | Oriental Orthodox Affiliation | ADV | + + + [...] Team Providers + +------+ + | Care Cyanide Furnace Operator Name | Role | Phone | [...] | | | | | [address] [place], [place] | [place] [address] | | | | | [address] | [phone] | | | | | [phone] | | | +--------+--------+ + + + [...]
--- OUTSIDE RECORDS SUMMARY | ~2019-09-22 | XMS | Encounter Summary ---
Demographics + + + | Address | [address] | | | [place] [address] | + + + | Home Phone | | + + + | Preferred Language | Unknown | + + + | Marital Status | | + + + | Holiness Affiliation | ADV | + + + [...] Team Providers + +------+ + | Care Linoleum Tile Floor Layer Name | Role | Phone | + +------+ + | Chava Ibanez MD | PCP | | + +------+ + Reason for Visit + + + | Reason | Comments | + + + | Lab Results | | + + + Encounter Details +--------+ + + + + | Date | Type | Department | Care Team | Description | +--------+ + + + + | 03/15/ | Telephone | [facility] | Estuardo Lindo, | Lab Results | | 2018 | | [place] [address] | [address] | | | | | [place], [place] | [place] [address] | | | | | [address] | [phone] | | | | | [phone] | | | +--------+ + + + [...]
--- OUTSIDE RECORDS SUMMARY | ~2019-09-22 | XMS | Encounter Summary ---
Demographics + + + | Address | [address] | | | [place] [address] | + + + | Home Phone | | + + + | Preferred Language | Unknown | + + + | Marital Status | | + + + | Adventist Affiliation | ADV | + + + | Race | White | + + + | Ethnic Group | Not or | + + + Author + + + | Author | [facility] | + + + | Organization | [facility] | + + + | [...] Team Providers + +------+ + | Care Cartography Teacher Name | Role | Phone | + +------+ + PCP | Unavailable | + +------+ + Reason for Visit + + + | Reason | Comments | + + + | Chart Abstract | Pre visit chart review and abstract | + + + Encounter Details +--------+ + + + + | Date | Type | Department | Care Team | Description | +--------+ + + + + | 10/13/ | Abstract | [facility] | Estuardo Lindo, | Chart Abstract (Pre | | 2016 | | [place] [address] | [address] | visit chart review | | | | [place], [place] | [place] [address] | and abstract) | | | | [address] | [phone] | | | | | [phone] | | | +--------+ + + + [...] encounter Progress Notes Estuardo Lindo MD - 10/13/2016 1:49 PM PSTFormatting of this note might be different fr om the original. Pre-Visit Summary and Planning Note: These working notes are a combination of history r eview, plans for visit and anticipated future plans - intended to provide rapid data access during our up-coming visit. Any assessments and plans are either historical, projected, anti cipated or provisional. They do not represent a record of a visit on this date. IDENTIFICATION: Jose is a 80 y.o. year-old male from [place], [place]. He is to my Aunt Lisa. 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 Surgical: No past surgical history on file. Allergies: Review of patient's allergies indicates not on file. Current Medications: Current Medications Taking? Last Dose Start Date End Date FINASTERIDE 5 mg oral tablet No 07/07/16 -- TAKE 1 TABLET DAILY Associated Diagnoses: None Social History: Social History Social History Marital status: Spouse name: N/A Number of children: N/A Years of education: N/A Occupational History Not on file. Social History Main Topics Smoking status: Not on file Smokeless tobacco: Not on file Alcohol use Not on file Drug use: Not on file Sexual activity: Not on file Other Topics Concern Not on file Social History Narrative Family History: Family History ROS: (see MA note) reviewed EXAM: Vital Signs There were no vitals taken for this visit. General: Well-developed, well-nourished adult male of stated age in no visible discomfo rt, oriented and alert. HEART: Regular rhythm LUNGS: clear Abdomen: Soft and nontender, without palpable mass or hernia. Genitalia: Penis - glans normal. Meatus normal. There are no shaft lesions. Scrotum - skin is rugated. Color normal. No edema, swelling or skin lesions. Testes - the testes are descended bilaterally and normal without palpable nodule or indurat ion. Epididymides are normal without significant swelling or tenderness. NEERAJ: Anus: Normal sphincter tone, No suspicious skin lesion Rectum: No intralumenal mass Prostate: moderately enlarged, symmetrical, without induration, nodule, or tenderness. LAB: PSAs: No results found for: PSA Lab Results Component Value Date/Time TESTOSTERONE 2.60 04/10/2011 12:44 PM HCT 46.0 02/03/2005 04:31 PM Lab Results Component Value Date NA 141 02/03/2005 K 3.8 02/03/2005 CL 100 02/03/2005 BICARB 29 02/03/2005 BUN 18 02/03/2005 CR 1.1 02/03/2005 GLU 98 02/03/2005 CA 9.1 02/03/2005 No results found for: URINECOLOR, URAPPEARANCE, URINELE, URINENITRITE, URINEUROBILI, URINEP ROTEIN, URINEPH, URINEBLOOD, URSPECGRAV, URINEKETONES, URINEBILI, URINEGLUCOSE No results found for: URINEAMPPHOS, URINEBACTERI, URINECAOX, URINECAST, URINECLUE, URINEGRA NCAS, URINEHYALINE, URINEMUCOUS, URINEEPITH, URINEREDCELL, URINESQEPI, URINEPO4, URINEWBC, U RINEYEAST IMAGING: No results found. No problem-specific Assessment & Plan notes found for this encounter. This uyzy-gf-gykk visit lasted over minutes and % of this time was spent in travel counselor automobile club ing. documented in this e ncounter Plan of Treatment Not on filedocumented as of this encounter Visit Diagnoses Not on filedocumented in this encounter"
--- OUTSIDE RECORDS SUMMARY | ~2019-09-22 | XMS | Encounter Summary ---
Demographics + + + | Address | [address] | | | [place] [address] | + + + | Home Phone [...] Team Providers + +------+ + | Care Crown Ironer Operator Name | Role | Phone | [...] | | [place], [place] | [place] [address] | | | | | [address] | [phone] | | | | | | | [...] Testing Performed at: [facility] CLIA: [id number] - [id number] | [facility] | | [place] [address] | - [place] | + + + + + + + + | Performing | Address | City/State/Zipcode | Phone Number | | Organization | | | | + + + + + | [facility] - | [address] | [place] | [phone] | | [place] | | | | + + + + + documented in this encounter Visit Diagnoses Not on filedocumented in this encounter"
--- OUTSIDE RECORDS SUMMARY | ~2019-09-22 | XMS | Encounter Summary ---
Demographics + + + | Address | [address] | | | [place] [address] | + + + | Home Phone | | + + + | Preferred Language | Unknown | + + + | Marital Status | | + + + | Rastafarian Affiliation | ADV | + + + | Race | White | + + + | Ethnic Group | Not or | + + + Author + + + | Author | [facility] | + + + | Organization | [facility] | + + + | [...] Team Providers + +------+ + | Care Jai Alai Player Name | Role | Phone | + [...] St | | | | | [place], [place] | [place], [place] [address] | | | | | [address] | [phone] | | | | | [phone] | | | +--------+ + + + [...] +--------+ + + + | IV PYELOGRAM [id number] | Routin | 01/20/2006 | | Results for this | | | e | 11:29 AM | | procedure are in the | | | | PDT | | results section. | + +--------+ + + + documented in this encounter Results IV PYELOGRAM [id number] (01/20/2006 11:29 AM PDT) + + | [...] + + | Performing | Address | City[facility] | Phone Number | | Organization | | | | + +---------+ + + | [facility] | | | | | RADIOLOGY | | | | + +---------+ + + documented in this encounter Visit Diagnoses Not on filedocumented in this encounter"
--- OUTSIDE RECORDS SUMMARY | ~2019-09-22 | XMS | Encounter Summary ---
Demographics + + + | Address | [address] | | | [place] [address] | + + + | Home Phone | | + + + | Preferred Language | Unknown | + + + | Marital Status | | + + + | Methodist Affiliation | ADV | + + + [...] Providers + +------+ + | Care Supervisor Slashing Department Name | Role | Phone | + +------+ + PCP | Unavailable | + +------+ + Encounter Details +--------+ + + + + | Date | Type | Department | Care Team | Description | +--------+ + + + + | 03/21/ | [facility] | | Letter, Clinic | [...] as of this encounter Progress Notes Interface, Heel Nail [place]asper In - 04/27/2005 6:11 AM PDT [id number] 03/21/2005 03/21/2005 [id number] LINCOLN Zheng [place] [address] [place] [address] or Department of Otolaryngology - PV01 March 21, 2005 Magnus [address] M[address] [facility] [address] [place] [address] RE: GURWINDER STARK MR #: [id number] Dear John: I saw Mr. Stark back today in followup of his deep lobe parotidectomy. He is doing well and has no symptoms referable to the area. His wounds are nicely healed. I am going to discharge him here from followup. 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 In my opinion, for those lesions have come out well as this one did, the recurrence rate is probably the same and intensive followup in probably not needed. I will obviously see him back if any issues arise. I appreciate the chance to see and care for him. Yours sincerely, Kade Frazier M.D., Ph.D. Professor - Head and Neck Surgery Department of Otolaryngology/Head and Neck Surgery [facility] PV- FAX [phone] email - [email or web address] JI / [id number] / [id number] / [id number] / [id number] C: 03/26/2005 amm documented i n this encounter Plan of Treatment Not on filedocumented as of this encounter Visit Diagnoses Not on filedocumented in this encounter"
--- OUTSIDE RECORDS SUMMARY | ~2019-09-22 | XMS | Encounter Summary ---
Demographics + + + | Address | [address] | | | [place] [address] | + + + | Home Phone | | + + + | Preferred Language | Unknown | + + + | Marital Status | | + + + | Islam Affiliation | ADV | + + + [...] Team Providers + +------+ + | Care Doorshaker Name | Role | Phone | + [...] as of this encounter Progress Notes Interface, Sourcing Internship In - 04/27/2005 6:11 AM PDT [id number] 03/21/2005 03/21/2005 [id number] LINCOLN Zheng [place] [address] [place] [address] or Department of Otolaryngology - PV01 March 21, 2005 Magnus Holcomb M.D. [facility] [address] [place] [address] RE: GURWINDER STARK MR #: [id number] Dear John: I saw Mr. Stark back [...] Department of Otolaryngology/Head and Neck Surgery [facility] PV- FAX [phone] email - [email or web address] JI / [id number] / [id number] / [id number] / [id number] C: 03/26/2005 amm documented i n this encounter Plan of Treatment Not on filedocumented as of this encounter Visit Diagnoses Not on filedocumented in this encounter"
--- OUTSIDE RECORDS SUMMARY | ~2019-09-22 | XMS | Clinical Summary ---
Demographics + + + | Address | [address] | | | [place] [address] | + + + | Home Phone [...] + + + + + | Diana Muñzo | ECON | [place] | | + + + + + Care Team Providers + +------+ + | Care Link Trainer Operator Name | Role | Phone | + +------+ + | Chava Ibanez MD | PCP | | + +------+ + Source Comments ADRIENNE is fully live on both [facility] Ambulatory and [facility] InPatient.[facility] Allergies + + + +--------+ + | [...] | + + + +---------+------+------+-------+ | ofloxacin 0.3 % | | | 0 | 02/1 | | Activ | | ophthalmic (eye) | | | | 5/20 | | e | | drops | | | | 18 | | | + + + +---------+------+------+-------+ | telmisartan 80 mg | Take one tablet | | 0 | 06/1 | | Activ | | oral tablet | daily | | | 4/20 | | e | | | | | | 16 | | | + + + +---------+------+------+-------+ | potassium chloride | Take 2 tablets twice | | 0 | 07/0 | | Activ | | SR 20 mEq oral | daily | | | 9/20 | | e | | tablet,ER | | | | 17 | | | | particles/crystals | | | | | | | + + + +---------+------+------+-------+ | dilTIAZem CD 24 | Take by mouth. | | 0 | 05/29 | | Activ | | hour release 240 mg | | | | 12/15 | | e | | oral | | | | 12 | | | | capsule,extended | | | | | | | | release 24hr | | | | | | | + + + +---------+------+------+-------+ | levothyroxine 175 | | | 0 | 09/29 | | Activ | | mcg oral tablet | | | | 01/15 | | e | | | | | | 18 | | | + + + +---------+------+------+-------+ | | Take one tablet | | 0 | 05/0 | | Activ | | triamterene-hydrochl | daily | | | 06/17 | | e | | orothiazide 75-50 mg | | | | 16 | | | | oral tablet | | | | | | | + + + +---------+------+------+-------+ | budesonide | INHALE 2 PUFFS BY | | 0 | 05/30 | | Activ | | [...] | | + + + +---------+------+------+-------+ | cholecalciferol | Take by mouth. | | 0 | | | Activ | | (Vitamin D3) 2,000 | | | | | | e | | unit oral capsule | | | | | | | + + + +---------+------+------+-------+ | cyanocobalamin | Take by mouth. | | 0 | | | Activ | | (VITAMIN B-12) 500 | | | | | | e | | mcg oral tablet | | | | | | | + + + +---------+------+------+-------+ | esomeprazole | Take by mouth. | | 0 | 05/29 | | Activ | | (NEXIUM) 40 mg oral | | | | 3/20 | | e | | capsule,delayed | | | | 12 | | | | release(DR/EC) | | | | | | | + + + +---------+------+------+-------+ | thiamine 250 mg | Take by mouth. | | 0 | | | Activ | | oral tablet | | | | | | e | + + + +---------+------+------+-------+ | pyridoxine | Take 1 tablet by | | 0 | | | Activ | | (vitamin B6) 100 mg | mouth once daily. | | | | | e | | oral tablet | | | | | | | + + + +---------+------+------+-------+ | folic acid 800 mcg | Take 1 tablet by | | 0 | | | Activ | | oral tablet | mouth once daily. | | | | | e | + + + +---------+------+------+-------+ | B2/VITS | Take 1 capsule by | | 0 | 09/1 | | Activ | | A,C,E/LUT/ZEAXANTH/M | mouth two times | | | 3/20 | | e | | IN (ICAPS ORAL) | daily. | | | 12 | | | + + + +---------+------+------+-------+ | losartan 100 mg | | | 0 | 10/0 | | Activ | | oral tablet | | | | /20 | | e | | | | | | 18 | | | + + + +---------+------+------+-------+ | prednisoLONE | 1 drop once daily. | | 0 | | | Activ | | acetate 1 % | | | | | | e | | ophthalmic (eye) | | | | | | | | drops,suspension | | | | | | | + + + +---------+------+------+-------+ | propylene | Instill 3 drops in | | 0 | | | Activ | | glycol/peg 400 | eye three times | | | | | e | | (SYSTANE ULTRA OPHT) | daily. | | | | | | + + + +---------+------+------+-------+ | desmopressin 10 | Instill 1 spray into | 5 mL | 11 | 12/1 | | Activ | | mcg/spray (0.1 mL) | either nostril once | | | 2/20 | | e | | nasal | daily. | | | 18 | | | | spray,non-aerosol | | | | | | | + + + +---------+------+------+-------+ | FINASTERIDE 5 mg | TAKE 1 TABLET BY | 90 | 3 | 02/0 | | Activ | | oral tablet | MOUTH ONCE DAILY | tablet | | 8/20 | | e | [...] + + | 09/04/ | Telephone | Urology | Estuardo Lindo, | | | 2018 | | | MD | | +--------+ + + + + | 09/01/ | Telephone | Urology | Estuardo Lindo, | Lab Order | | 2018 | | | MD | | +--------+ + + + + | 08/31/ | Results | | Other, Faculty | | | 2018 | Only | | | | +--------+ + + [...] Influenza, | 07/29/2013, 06/03/2012 | | | injectable, Madin | | | | Birdie Canine Kidney, | | | | preservative [...] | | + + + + | [id number], | 11/06/2009 | | | injectable | [...] + + + | Blood Pressure | 140/84 | 03/09/2019 11:40 AM | | | | | PDT | | + + + + + | Pulse | 60 | 03/09/2019 11:40 AM | | | | | PDT | | + + + + + | Temperature | - | - | | + + + + + | Respiratory Rate | 16 | 09/08/2018 11:55 AM | | | | | PST | | + + + + + | Oxygen Saturation | - | - | | + + + + + | Inhaled Oxygen | - | - | | | Concentration | | | | + + + + + | Weight | 89.8 kg (198 lb) | 03/09/2019 11:40 AM | | | | | PDT | | + + + + + | Height | 181.6 cm (5' 11.5") | 03/09/2019 11:40 AM | | | | | PDT | | + + + + + | Body Mass Index | 27.23 | 03/09/2019 11:40 AM | | | | | PDT | | + + + + + Plan of Treatment + + + + + | Health Maintenance | Due Date | Last Done | Comments | + + + + + | Influenza (Flu) | | 07/13/2018, 10/06/2017, | | | vaccination (#1) | 9 | 07/18/2016, Additional history | | | | | exists | | + + + + + | Pneumococcal | Completed | 04/25/2016, 04/27/2015 | | | vaccination | | | | + + + [...] | | | (LAB) | | | [place] | | + + + + + + | POTASSIUM, | 3.8 | 3.6 - 5.1 meq/L | [facility] | | | PLASMA | | | LAB - | | | (LAB) | | | [place] | | + + + + + + | CHLORIDE, | 96 | 95 - 112 meq/L | [facility] | | | PLASMA | | | LAB - | | | (LAB) | | | [place] | | + + + + + + | CO2 | 26 | 19 - 31 meq/L | [facility] | | | | | | LAB - | | | | | | [place] | | + + + + + + | ANION GAP | 14.8 | 7 - 21 | [facility] | | | | | | LAB - | | | | | | [place] | | + + + + + + | GLUCOSE, | 123 (H) | 70 - 100 mg/dL | [facility] | | | PLASMA | | | LAB - | | | (LAB) | | | [place] | | + + + + + + | CALCIUM | 9.4 | 8.5 - 10.3 | [facility] | | | | | mg/dL | LAB - | | | | | | [place] | | + + + + + + | BUN, PLASMA | 19 | 6 - 23 mg/dL | [facility] | | | (LAB) | | | LAB - | | | | | | [place] | | + + + + + + | CREATININE | 1.04 | 0.70 - 1.11 | [facility] | | | PLASMA | | mg/dL | LAB - | | | (LAB) | | | [place] | | + + + + + + | ESTIMATED | 68 | ml/min | [facility] | | | GFR | | | LAB - | | | | | | [place] | | + + + + + + | BUN/CREATIN | 18.3Comment: | 6.0 - 28.6 | [facility] | | | INE RATIO | ESTIMATED GFR | | LAB - | | | | Reference Range: | | [place] | | | | GFR = Less [...] | | | | Copy Sent to ESTUARDO | | | | | | DARLENE [...] Testing Performed at: [facility] [place] [facility] CLIA: [id number] - [address] | [facility] | | [place] [address] | - [place] | + + + + + + + + | Performing | Address | City/State/Zipcode | Phone Number | | Organization | | | | + + + + + | [facility] - | [address] | [place], [place] | [phone] | | [place] | | | | + + + + + from Last 3 Months Insurance + +--------+ +--------+ + +--------+ | Payer | Benefi | Subscriber | Effect | Phone | Address | Type | | | t Plan | ID | [place] | | | | | | / | | Dates | | | | | | Group | | | | | | + +--------+ +--------+ + +--------+ | MEDICARE | MEDICA | xxxxxxxxxx | Effect | [phone] | [address] | [address] | | | RE A & | | [place] | [phone] | re | | | B | | for | | [place] | | | | | | all | | [id number] | | | | | | dates | | | | + +--------+ +--------+ + +--------+ | COMMERCIAL GROUP | COMMER | xxxxxxxxx | Effect | | | Indemn | | | CIAL | | laverne | | | ity | | | GROUP | | for | | | | | | | | all | | | | | | | | dates | | | | + +--------+ +--------+ + +--------+ | MEDICARE | MEDICA | xxxxxxxxxxx | 12/28/19 | [phone] | [address] | [address] | | | RE A & | | 01-Pre | 1 | [phone] | re | | | B | | sent | | [place], [place] | | | | | | | | [address] | | + +--------+ +--------+ + +--------+ | [employer] | AARP | xxxxxxxxxxx | 09/28/19 | [phone] | [address] | Indemn | | RETIRED PEOPLE | | | 17-Pre | 9 | [phone] | ity | | | | | sent | | [place] | | | | | | | | [phone] | | + +--------+ +--------+ + +--------+ + +--------+ +--------+ + + | Guarantor Name | Accoun | Relation to | Date | Phone | Billing Address | | | t Type | Patient | of | | | | | | | | | | + +--------+ +--------+ + + | Rachel Monk | Person | Self [birth year] | [address] | | | al/Fam | | 1936 | [phone] | [place] [address] | | | almaz | | | 6 (Home) | | + +--------+ +--------+ + + | Rachel Monk | Person | Self | [birth year] | [address] | | | al/Fam | | 1936 | [phone] | [place], [place] | | | almaz | | | 6 (Home) | [address] | + +--------+ +--------+ + +
--- OUTSIDE RECORDS SUMMARY | ~2019-09-22 | XMS | Clinical Summary ---
Demographics + + + | Address | [address] | | | [place] [address] | + + + | Home Phone [...] Team Providers + +------+ + | Care Fast Food Manager Name | Role | Phone | + +------+ + | Chava Ibanez MD | PCP | | + +------+ + Source Comments ADRIENNE is fully live on both [facility] Ambulatory and [facility] InPatient.[facility] Allergies + + + +--------+ + | [...] | | + + + + | [id number], | 11/06/2009 | | | injectable | [...] Testing Performed at: [facility] [place] [facility] CLIA: [id number] - [address] | [facility] | | [place] [address] | - [place] | + + + + + + + + | Performing | Address | City/State/Zipcode | Phone Number | | Organization | | | | + + + + + | [facility] - | [address] | [place], [place] | [phone] | | [place] | | | | [...] | | | | all | | [address] | | | | | | dates [...] | | | | | | | [address] | | + +--------+ +--------+ + +--------+ | [employer] | AARP | xxxxxxxxxxx | 09/28/19 | [phone] | [address] | Indemn | | RETIRED PEOPLE | | | 17-Pre | [phone] | [phone] | ity | | | | | sent | | [place] | | | | | | | | [address] | | + +--------+ +--------+ + +--------+ [...] | 1936 | [phone] | [place] [address] | | | almaz | | | 6 (Home) | | + +--------+ +--------+ + + | Rachel Monk | Person | Self | [birth year] | [address] | | | al/Fam | | 1936 | [phone] | [place], [place] | | | almaz | | | 6 (Home) | [address] | + +--------+ +--------+ + +
--- OUTSIDE RECORDS SUMMARY | ~2019-09-22 | XMS | Encounter Summary ---
Demographics + + + | Address | [address] | | | [place] [address] | + + + | Home Phone | | + + + | Preferred Language | Unknown | + + + | Marital Status | | + + + | Judaism Affiliation | 1001 | + + + | Race | Unknown | + + + | Ethnic Group | Unknown | + + + Author + + + | Author | [facility] | | | and [place]jayana | + + + | Organization | [facility] | | | and [...] Team Providers + +------+ + | Care Machine Edge Bander Name | Role | Phone | + +------+ + | Chava Ibanez | PCP | | | MD | | | + +------+ + Reason for Visit + + + | Reason | Comments | + + + | Bronchiectasis | Yearly follow up | + + + Encounter Details +--------+---------+ + + + | Date | Type | Department | Care Team | Description | +--------+---------+ + + + | 04/21/ | Office | [facility] | Jeffrey Mejia, | Bronchiectasis | | 2018 | Visit | PULMONARY [address] | MD [address] | without complication | | | | [place], | [place], [place] | ([facility]) (Primary Dx) | | | | [place] [address] | [address] | | | | | [phone] | | | +--------+---------+ + + + [...] + + + | Blood Pressure | 122/68 | 04/21/2018 9:22 AM | | | | | PDT | | + + + + + | Pulse | 65 | 04/21/2018 9:22 AM | | | | | PDT | | + + + + + | Temperature | - | - | | + + + + + | Respiratory Rate | - | - | | + + + + + | Oxygen Saturation | 96% | 04/21/2018 9:22 AM | | | | | PDT | | + + + + + | Inhaled Oxygen | - | - | | | Concentration | | | | + + + + + | Weight | 94.5 kg (208 lb 5.4 | 04/21/2018 9:22 AM | | | | oz) | PDT | | + + + + + | Height | 181.6 cm (5' 11.5") | 04/21/2018 9:22 AM | | | | | PDT | | + + + + + | Body Mass Index | 28.65 | 04/21/2018 9:22 AM | | | | | PDT | | + + + + + documented in this encounter Patient Instructions Patient Instructions Jeffrey Mejia MD - 04/21/2018 9:30 AM PDT Please get high dose FluVaccine in June 2018 The flu (influenza) is caused by a virus that is easily spread. A fluvaccine protects you and othersfrom the flu. It s best to get a flu shot every year in late summer or early fall, as soon as the vaccine is available in your area. You can get it at your healthcare pr ovider s office or a health clinic. Pharmacies, senior centers, and workplaces often offer flu shots, too. If you want to know if your providerhas the flu vaccine available, or if you have other questions, ask your healthcare provider. Flu facts The flu shot won t give you the flu. The virus that is in the flu shot has been killed (inactivated). The flu can be dangerous even life-threatening. Every year thousands of people fro m complications from the flu. The flu is caused by a virus. It can t be treated with antibiotics. Influenza is not the same as stomach flu, the 24-hour virus that causes vomiting and meme rrhea. The stomach flu most likely happens because of a GI (gastrointestinal) infection, not the flu. You need to get a flu shot each year. Flu symptoms Flu symptoms tend to come on quickly. They include: Fever Headache Tiredness (fatigue) Cough Sore throat Runny nose Muscle aches Upset stomach and vomiting are not common for adults. Some symptoms such as tiredness and c ough may lastfor manyweeks. How a flu vaccine protects you There are many types (strains) of theflu virus. Medical experts predict which strains are most likely to make people sick each year. Flu shots are made from these strains. When you get a flu vaccine, killed (inactivated)viruses are injected into your body. These can t give you the flu. But they do cause your body to make antibodies to fight these flu strains. If you are exposed to the same strains later in the flu season, the antibodies will fight o ff the germs. Who should get the flu vaccine? The CDC recommends that infants over the age of 6 months and all children and adults should get aflu shot every year. Some people are at an increased risk of developing serious complications from the flu. It i s extremely important that these people get the vaccine. They include those with: Long-term heart and lung conditions Other serious health conditions such as: Endocrine disorders such as diabetes Kidney or liver disorders Weakened immune system from disease or medical treatment. For example, people with HIV o r AIDS, or those taking long-term steroids or medicines to treat cancer. Blood disorders such as sickle cell disease It is also very important that others who have an increased risk of being exposed to the fl u or are around people with increased risk for complications get the vaccine. This includes: Healthcare providers and other staff who provide care in hospitals, nursing homes, home health, and other facilities Household members, including children of people in high-risk groups Types of flu vaccines The flu vaccine is available as a regularand a high-strengthshot. Your healthcare provi jamee will recommend the vaccine that is best for you. Flu shot The flu shot is available in a few different forms. Your healthcare provider will determine which vaccine is right for you. There is a high-dose vaccine for those over age 65 and a va ccine for those with egg allergies. It is safe for most people. Talk with your provider if y ou have had: A severe allergic reaction to a previous flu vaccine Guillain-Tenorio syndrome. This is a severe paralyzing condition. Nasal spray The nasal spray isnotrecommended for the 1421-0015 flu season. The CDC says the nasal s pray did not seem to protect against the flu over the last several flu seasons. Date Last Reviewed: 08/28/201619997110-5938 [employer]. [address] [place], [place] [address]. All righ ts reserved. This information is not intended as a substitute for professional medical care. Always follow your healthcare professional's instructions. documented in this encounter Progress Notes Jeffrey Mejia MD - 04/21/2018 9:30 AM PDTFormatting of this note might be different f rom the original. Pulmonary Follow Up 04/21/2018 HPI Rachel Monk is a 82 y.o. male patient of Chava Ibanez MD [...] regimen. Currently they are able to walk 1 mile at their own pace on level ground before becoming sy mptomatic. The patient is not exercising regularly. No longer using the treadmill. They are not enrolled in cardiac/pulmonary rehabilitation or other physical therapy. The patient are not practicing bronchial hygiene behaviors. Specifically they use an Acape lla/Aerobika vibratory PEP therapy system 0 times a day. Rachel does not cough chronically, and does not produce mucous. They have not had hemopty sis since our last appointment. He has not been evaluated for nocturnal oxygen. Rachel does not use a bronchodilator. The patient does use Pulmicort 180, 2 puffs twice d aily. Mr. Monk is rinsing his mouth out after Pulmicort use. He does not had symptoms of heartburn [...] Antibiotics Rash Sulfasalazine Rash Medications: Current Outpatient Prescriptions: budesonide (PULMICORT FLEXHALER) 180 mcg/puff inhaler, INHALE 2 PUFFS BY MOUTH TWICE D AILY, Disp: 3 Inhaler, Rfl: 1 Cholecalciferol (VITAMIN D-3) 2000 units CAPS, Take [...] every morning (before breakfast)., Disp: , Rfl: Multiple Vitamins-Minerals (EYE VITAMINS) [...] ZOSTER, 1 DOSE (ADULT) 06/03/2012 Objective BP 122/68 | Pulse 65 | Ht 1.816 m (5' 11.5") | Wt 94.5 kg (208 lb 5.4 oz) | SpO2 96% | BMI 28.65 kg/m Appearance: Alert, cooperative, no distress, appears [...] normal Data: None Assessment 1. Bronchiectasis no apparent bronchiectasis exacerbation symptoms over the last 12 jayjay hs. The patient is not requiring use of a bronchial hygiene device. Mr. Monk is up-to-date with respect to his seasonal influenza vaccination, Prevnar and Pneumovax. Today we discussed determination as to whether a lower dose of Pulmicort can be used and st ill control his cough symptoms related to bronchiectasis. The patient is open to this bedoya e. Plan 1. Decrease Pulmicort to 180 g per puff, 1 inhalation twice daily. 2. High-dose seasonal influenza vaccination June 2018. 3. The interval between pulmonary clinic follow-up appointments will remain at 12 months t mayra. CC: Chava Ibanez MD documented in this encounter Plan of Treatment Not on filedocumented as of this encounter Visit Diagnoses + + | Diagnosis | + + | Bronchiectasis without complication (HCC) - Primary Bronchiectasis without acute | | exacerbation | + + documented in this encounter
--- OUTSIDE RECORDS SUMMARY | ~2019-09-22 | XMS | Encounter Summary ---
Demographics + + + | Address | [address] | | | [place] [address] | + + + | Home Phone | | + + + | Preferred Language | Unknown | + + + | Marital Status | | + + + | Church Affiliation | ADV | + + + | Race | White | + + + | Ethnic Group | Not or | + + + Author + + + | Author | [facility] | + + + | Organization | [facility] | + + + [...] he had | | | | [place], [place] | [place] [address] | his repeat PSA | | | | [address] | [phone] | done?) | | | | [phone] | | | +--------+ + + + [...]
--- OUTSIDE RECORDS SUMMARY | ~2019-09-22 | XMS | Encounter Summary ---
Demographics + + + | Address | [address] | | | [place] [address] | + + + | Home Phone | | + + + | Preferred Language | Unknown | + + + | Marital Status | | + + + | Pentecostal Affiliation | ADV | + + + | Race | White | + + + | Ethnic Group | Not or | + + + Author + + + | Author | [facility] | + + + | Organization | [facility] | + + + [...] Team Providers + +------+ + | Care Box Truck Washer Name | Role | Phone | + [...] | due) | | | | [place], [place] | [place], [place] [address] | | | | | [address] | [phone] | | | | | [phone] | | | +--------+ + + + [...]
--- OUTSIDE RECORDS SUMMARY | ~2019-09-22 | XMS | Encounter Summary ---
Demographics + + + | Address | [address] | | | [place] [address] | + + + | Home Phone | | + + + | Preferred Language | Unknown | + + + | Marital Status | | + + + | Congregation Affiliation | ADV | + + + | Race | White | + + + | Ethnic Group | Not or | + + + Author + + + | Author | [facility] | + + + | Organization | [facility] | + + + | [...] Providers + +------+ + | Care Supervisor Long Goods Name | Role | Phone | + [...] St | | | | | [place], [place] | [place], [place] [address] | | | | | [address] | [phone] | | | | | [phone] | | | +--------+ + + + [...]
--- OUTSIDE RECORDS SUMMARY | ~2019-09-22 | XMS | Encounter Summary ---
Demographics + + + | Address | [address] | | | [place] [address] | + + + | Home Phone | | + + + | Preferred Language | Unknown | + + + | Marital Status | | + + + | Holiness Affiliation | 1001 | + + + | Race | Unknown | + + + | Ethnic Group | Unknown | + + + Author + + + | Author | [facility] | | | and Jayjayana | + + + | Organization | [facility] | | | and [...] Team Providers + +------+ + | Care Tank House Operator Name | Role | Phone | [...] | +--------+ + + + + | 06/02/ | Telephone | [facility] | Kade Wheat MD | Results | | 2012 | | GASTROENTEROLOGY | [address], [place] | | | | | [address] [place] | [address] [place], [place] | | | | | [address] [place], [place] | [address] | | | | | [address] | | | | | | [phone] | | | +--------+ + + + [...]
--- OUTSIDE RECORDS SUMMARY | ~2019-09-22 | XMS | Encounter Summary ---
Demographics + + + | Address | [address] | | | [place] [address] | + + + | Home Phone | | + + + | Preferred Language | Unknown | + + + | Marital Status | | + + + | Evangelical Affiliation | ADV | + + + | Race | White | + + + | Ethnic Group | Not or | + + + Author + + + | Author | [facility] | + + + | Organization | [facility] | + + + | Address [...] Team Providers + +------+ + | Care Paper Feeder Name | Role | Phone | + +------+ + | No Pcp Per Patient | PCP | Unavailable | + +------+ + Encounter Details +--------+ + + + + | Date | Type | Department | Care Team | Description | +--------+ + + + + | 03/07/ | Results | [facility] [address] | [place], | | | 2019 | Only | [address] | [address] | | | | [place], [place] | [place] [address] | | | | | [address] | [phone] | | | | | | | [...] + | PSA, TOTAL | Routin | 03/07/2019 | | Results for this | | MONITORING | e | 9:00 AM | | procedure are in the | | | | PDT | | results section. | + +--------+ + + + documented in this encounter Results PSA, TOTAL MONITORING (03/07/2019 9:00 AM PDT) + + + + + + | Component | Value | Ref Range | Performed | Pathologist | | | | | At | Signature | + + + + + + | TOTAL PSA | 3.17Comment: The [facility] | 0.0 - 4.0 ng/ml [...] Testing Performed at: [facility] [place] [facility] CLIA: [id number] - [id number] | [facility] | | [place] [address] | - [place] | + + + + + + + + | Performing | Address | City/State/Zipcode | Phone Number | | Organization | | | | + + + + + | [facility] | [address] | [place] | [phone] | | [place] | | | | + + + + + documented in this encounter Visit Diagnoses Not on filedocumented in this encounter"
--- OUTSIDE RECORDS SUMMARY | ~2019-09-22 | XMS | Encounter Summary ---
Demographics + + + | Address | [address] | | | [place] [address] | + + + | Home Phone | | + + + | Preferred Language | Unknown | + + + | Marital Status | | + + + | Gnosticism Affiliation | ADV | + + + | Race | White | + + + | Ethnic Group | Not or | + + + Author + + + | Author | [facility] | + + + | Organization | [facility] | + + + | Address [...] Team Providers + +------+ + | Care Forms Builder Name | Role | Phone | + +------+ + | Chava Ibanez MD | PCP | | + +------+ + Encounter Details +--------+ + + + + | Date | Type | Department | Care Team | Description | +--------+ + + + + | 02/04/ | Hospital | Registration [id number] | Kade Farzier MD | | | 2004 | Activity | [address] | | | | | | [address] Mailcode: [id number] | | | | | | [place], [place] | | | | | | [address] | | | | | | [phone] | | | +--------+ + + + [...] fibrous | | | | | | tissue.Mathematics Improvement Teacher | | | | | | sections [...] submittedA6, | | | | | | hobbies and crafts sales representative section | | | | | [...] | + + + + + | [facility] | [address] | [place] [address] | | | PATHOLOGY | NELLA GARCIA | | | + + + + + | [facility] | [address] | [place] [address] | | | PATHOLOGY | NELLA GARCIA | | | + + + + + documented in this encounter Visit Diagnoses Not on filedocumented in this encounter
--- OUTSIDE RECORDS SUMMARY | ~2019-09-22 | XMS | Encounter Summary ---
Demographics + + + | Address | [address] | | | [place] [address] | + + + | Home Phone | | + + + | Preferred Language | Unknown | + + + | Marital Status | | + + + | Buddhism Affiliation | 1001 | + + + | Race | Unknown | + + + | Ethnic Group | Unknown | + + + Author + + + | Author | [facility] | | | and [place]jayana | + + + | Organization | [facility] | | | and [place] | + + + | Address | Unknown | + + + | Phone | Unavailable | + + + Support + + +---------+ + | Name | Relationship | Address | Phone | + + +---------+ + | Lisa Tecumseh | ECON | Unknown | | + + +---------+ + Care Team Providers + +------+ + | Care Meatman Name | Role | Phone | + +------+ + PCP | Unavailable | + +------+ + Encounter Details +--------+ + + + + | Date | Type | Department | Care Team | Description | +--------+ + + + + | 03/16/ | Hospital | [facility] | | | | 2000 | Encounter | MED CTR GENER[facility] OP | | | | | | CONV DEPT [address] | | | | | | [place], | | | | | | [place] [address] | | | | | | [phone] | | | +--------+ + + + [...]
--- OUTSIDE RECORDS SUMMARY | ~2019-09-22 | XMS | Encounter Summary ---
Demographics + + + | Address | [address] [place] [address] | | | [place] [address] | + + + | Home Phone | | + + + | Preferred Language | Unknown | + + + | Marital Status | | + + + | Adventist Affiliation | 1001 | + + + | Race | Unknown | + + + | Ethnic Group | Unknown | + + + Author + + + | Author | [facility] | | | and [place]jay[place] | + + + | Organization | [facility] | | | and [place] | + + + | Address | Unknown | + + + | Phone | Unavailable | + + + Support + + +---------+ + | Name | Relationship | Address | Phone | + + +---------+ + | Lisa [place] | ECON | Unknown | | + + +---------+ + Care Team Providers + +------+ + | Care Civil Rights Representative Name | Role | Phone | + [...] | SR | | | | | [phone] | | | +--------+ + + + [...]
--- OUTSIDE RECORDS SUMMARY | ~2019-09-22 | XMS | Encounter Summary ---
Demographics + + + | Address | [address] | | | [place] [address] | + + + | Home Phone [...] + + + | Author | [facility] | + + + | Organization | [facility] | + + + | Address | Unknown | + + + | Phone | Unavailable | + + + Support + + + + + | Name | Relationship | Address | Phone | + + + + + | Diana Muñoz | ECON | [place] | | + + + + + Care Team Providers + +------+ + | Care Sole Inker Name | Role | Phone | + [...] [id number] | | | | | | [place], [place] | | | | | | [address] | | | | | | [phone] | | | +--------+ + + + [...] | | IN ANTIBODY | performed by [facility] | | | | | | Laboratories. [...] + + + | [facility] | [address] | [place], [place] | | | | | [address] | | + + + + + [...] | + + + + + | [facility] | [address] | [place] [address] | | | LABORATORY | | | | + + + + + documented in this encounter Visit Diagnoses Not on filedocumented in this encounter"
--- OUTSIDE RECORDS SUMMARY | ~2019-09-22 | XMS | Encounter Summary ---
Demographics + + + | Address | [address] | | | [place] [address] | + + + | Home Phone [...] Providers + +------+ + | Care Supervisor Electronics Processing Name | Role | Phone | + +------+ + | Chava Ibanez MD | PCP | | + +------+ + Reason for Visit + + + | Reason | Comments | + + + | Follow-up visit | PSA, nocturia | + + + Encounter Details +--------+---------+ + + + | Date | Type | Department | Care Team | Description | +--------+---------+ + + + | 03/09/ | Office | [facility] | Estuardo Lindo, | Elevated PSA | | 2019 | Visit | [place] [address] | MD [address] | (Primary Dx); BPH | | | | [place], [place] | [place] [address] | with | | | | [address] | [phone] | obstruction/lower | | | | [phone] | | urinary tract | | | | | | symptoms; Nocturia | | | | | | more than twice per | | | | | | night; Hyponatremia | +--------+---------+ + + + Social History [...] in this encounter Patient Instructions Patient Instructions Estuardo Lindo MD - 03/09/2019 11:45 AM PDTTurk, It was good to see you today. I hope that our visit was helpful. Here is a brief list of my conclusions ("Assessment"s) and recommendations ("Plan"s) for each of the problems we deal t with today: Genitourinary System ASSESSMENT: Nocturnal polyuria. Good symptom response to desmopressin. There is no clinical sugges tion of hyponatremia, but since this remains a risk on this medication, I think that we need to check serum sodium levels at least once every 6 months. Elevated prostate specific antigen-response to finasteride suggests that this was elevat ed due to inflammation and benign prostatic enlargement rather than cancer.. 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 Call me if you have not heard from me within a week about the result. We need to check another sodium level in 6 months. I am going to make an appointment fo r you-so that I do not forget to get this done. On the other hand, if the level is normal a nd you are doing fine you do not need to drive over for that. Let's get it done a couple of weeks before the scheduled appointment and make sure you hear from me about a before you st art your drive. Lets check another PSA level in 1 year. I will need to see you and get another sodium l evel at that time as well. Please place a reminder on your personal calendar to call us if you have not received an ap pointment confirmation 30 days before the suggested follow-up date. I hope that this information is useful and that everything goes well for you. Please contac t me (through "[employer]" or our office phone) if I can be of any assistance before our next v isit. With best wishes, Estuardo Lindo MD, FACS documented in this encounter Progress Notes Heidy Soler MA - 03/09/2019 11:45 AM PDT Review of Systems Constitutional: Negative for chills, fever and weight loss. HENT: Negative for sore throat. Eyes: Negative for blurred vision and double vision. Respiratory: Negative for cough, shortness of breath and wheezing. Cardiovascular: Negative for chest pain, palpitations and orthopnea. Gastrointestinal: Negative for constipation, heartburn, nausea and vomiting. Genitourinary: Negative for dysuria, flank pain, frequency, hematuria and urgency. Musculoskeletal: Negative for falls, joint pain and myalgias. Skin: Negative for itching and rash. Neurological: Negative for dizziness, tremors, seizures and headaches. Endo/Heme/Allergies: Negative for environmental allergies. Does not bruise/bleed easily. Psychiatric/Behavioral: Negative for depression and memory loss. The patient does not have insomnia. AUA SYMPTOMS Total Symptom Score:: 5 Patient is not taking aspirin or aspirin containing products. Medications list updated and reported to Dr. Lindo A Glass Crusher was offered to the patient and declined. stuardo Lindo MD - 03/09/2019 11:45 AM PDTFormatting of t his note might be different from the original. CC: Follow-up visit - PSA, nocturia HPI: Jose returns with the following interval history: 08/2018-began desmopressin and noted about a 50 percent reduction in nocturia. A subseq uent serum sodium determination was normal, but he has not had this checked in about 6 month s. Physically, he is doing quite well. He has not had any recurrence of gross hematuria since restarting finasteride He spends about 5 or 6 hours a day at my aunts side in the extended care facility.. His voiding status is characterized by the following responses to the AUA questionaire: Over the past month or so: 1. How often have you had a sensation of not emptying your bladder completely after you fi nished urinating?: Not at All 2. How often have you had to urinate again less than two hours after you finished urinatin g?: Not at All 3. How often have you stopped and started again several times when you urinated?: Not at A ll 4. How often have you found it difficult to postpone urination?: Less than Half the Time 5. How often have you had a weak urinary stream?: Not at All 6. How often have you had to push or strain to begin urination?: Not at All 7. How many times did you most typically get up to urinate from the time you went to bed a t night until the time you got up in the morning?: 3 Times 8. If you were to spend the rest of your life with your urinary condition the way it is no w, how would you feel about it?: Mostly Satisfied Total AUA Symptom Score Total Symptom Score:: 5 Jose's urological history is reviewed, updated (including today) and summarized as follows: ELEVATED PSA 1990-prostate biopsy -3 cores ( mild glandular atypia on single core) 1998-TRUS Bx-benign with single focus of basal cell hyperplasia (6 cores) 07/03/2004-TRUS Bx-benign (6 cores) 2012-PSA-2.47 (on finasteride) Approximately 2015-discontinued finasteride when refill not authorized 10/14/2017 - PSA, total-9.83, free-11 percent 11/19/2017 - PSA - 10 (Restarted Finasteride) 09/03/2018-PSA-3.58 03/07/2019-PSA-3.17 (on finasteride) BPH/HEMATURIA 3151-IRUA-95 grams BPH Had subsequent difficulty with recurrent gross hematuria of prostatic origin, managed with long-term finasteride June 2017 (over a year after discontinuing finasteride) saw some initial hematuria after heavy lifting 11/19/2017-restarted finasteride and hematuria has not recurred ERECTILE DYSFUNCTION 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 - penoscrotal incision, 18 cm cylinders wi th 2 cm rear-tip extenders, 65 cc perivesical reservoir 01/27/2002-explant of the Ultrex cylinders and replacement with CX, the 18 cm cylinders, 4 cm rear-tip extenders, using existing pump and reservoir 2002-early development of prominent kink and corporal erosion right lateral shaft base-su ged expectantly PYURIA 10/14/20172752-OF-RKKd-5 ([facility]) NOCTURIA: 09/08/2018-reports trouble some nocturia 4 times per night begins desmopressin 0.1 mg HS (s pray) 09/27/2018-Symptoms improved-nocturia 2 times per night, sodium I normal ROS: (see MA note) reviewed EXAM: Vital Signs BP 140/84 (BP Location: Right upper arm, Patient Position: Sitting) | Pulse 60 | Ht 1.816 m (5' 11.5") | Wt 89.8 kg (198 lb) | BMI 27.23 kg/m | BSA 2.13 m General: Well-developed, well-nourished adult male of stated age in no visible discomfort, oriented and alert. Abdomen: Soft and nontender, without palpable mass or hernia. Genitalia: Penis - glans normal. Meatus normal. There are no shaft skin lesions. There is no discolo ration. The shaft does angle abruptly to the right and there is a prominent subcutaneous fo ld in the right cylinder along the right lateral base of the shaft. This appears to represe nt corporal erosion but there is no suggestion of more superficial erosion or impending skin erosion. Findings are stable. Scrotum - skin is rugated. Color normal. No edema, swelling or skin lesions. Testes - the testes are descended bilaterally and normal without palpable nodule or indurat ion. Epididymides are normal without significant swelling or tenderness. NEERAJ: Anus: Normal sphincter tone, No suspicious skin lesion Rectum: No intralumenal mass Prostate: moderately enlarged, nontender, there is asymmetry with right-sided dominance and an indurated central 1.5 cm nodule in the mid - right lateral prostate. LAB: PSAs: Lab Results Component Value Date PSA 3.17 03/07/2019 PSA 3.58 09/03/2018 PSA 3.54 02/24/2018 PSA 10.15 11/19/2017 Lab Results Component Value Date/Time TESTOSTERONE 2.60 04/10/2011 12:44 PM HCT 46.0 02/03/2005 04:31 PM PSA 3.17 03/07/2019 09:00 AM Lab Results Component Value Date NA 135 09/22/2018 K 3.2 09/22/2018 CL 96 09/22/2018 BICARB 24 09/22/2018 BUN 23 09/22/2018 CR 1.16 09/22/2018 GLU 126 09/22/2018 CA 9.2 09/22/2018 ANIONGAP 18.2 09/22/2018 Lab Results Component Value Date URINECOLOR Yellow 11/19/2017 URAPPEARANCE Hazy 11/19/2017 URINEPROTEIN Trace 11/19/2017 URINEPH 6.5 11/19/2017 URINEKETONES Negative 11/19/2017 URINEGLUCOSE Negative 11/19/2017 Lab Results Component Value Date URINEBACTERI Negative 11/19/2017 URINEREDCELL 20-50 11/19/2017 URINESQEPI None 11/19/2017 URINEWBC 0-2 11/19/2017 I spent 28 minutes with the patient. Greater than 50% of the time was spent counseling the patient regarding my findings and impressions, and discussing options for work-up and treat ment, as summarized in the "ASSESSMENT" (below). We have agreed to proceed as outlined in "P KAZ" (below). Genitourinary System ASSESSMENT: Nocturnal polyuria. Good symptom response to desmopressin. There is no clinical sugges tion of hyponatremia, but since this remains a risk on this medication, I think that we need to check serum sodium levels at least once every 6 months. Elevated prostate specific antigen-response to finasteride suggests that this was elevat ed due to inflammation and benign prostatic enlargement rather than cancer.. 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 Call me if you have not heard from me within a week about the result. We need to check another sodium level in 6 months. I am going to make an appointment fo r you-so that I do not forget to get this done. On the other hand, if the level is normal a nd you are doing fine you do not need to drive over for that. Let's get it done a couple of weeks before the scheduled appointment and make sure you hear from me about a before you st art your drive. Lets check another PSA level in 1 year. I will need to see you and get another sodium l evel at that time as well. This record was dictated and transcribed (using [employer] Speech [employer]ognition [employer]) in the patient's presence at the time of the visit Patient agreed to call if he has not received appointment confirmation 30 days in [employer] e of recommended follow-up date. documented in this e ncounter Plan of Treatment + +------+--------+ + + | Name | Type | Priori | Associated Diagnoses | Order Schedule | | | | ty | | | + +------+--------+ + + | BASIC METABOLIC SET | Lab | Routin | Hyponatremia | Expected: 03/10/2019 | | (NA, K, CL, TCO2, | | e | | (Approximate), | | BUN, CR, GLU, CA) | | | | Expires: 04/09/2020 | + +------+--------+ + + documented as of this encounter Visit Diagnoses + + | Diagnosis | + + | Elevated PSA - Primary Elevated prostate specific antigen (PSA) | + + | BPH with obstruction/lower urinary tract symptoms Hypertrophy of prostate with | | urinary obstruction and other lower urinary tract symptoms (LUTS) | + + | Nocturia more than twice per night | + + | Hyponatremia Hyposmolality and/or hyponatremia | + + documented in this encounter
--- OUTSIDE RECORDS SUMMARY | ~2019-09-22 | XMS | Encounter Summary ---
Demographics + + + | Address | [address] | | | [place] [address] | + + + | Home Phone [...] Team Providers + +------+ + | Care Fluid Pump Operator Name | Role | Phone | + +------+ + PCP | Unavailable | + +------+ + Encounter Details +--------+ + + + + | Date | Type | Department | Care Team | Description | +--------+ + + + + | 02/06/ | Office | | Note, Outpatient | Progress Note | | 2005 | Visit-Trans | | Clinic | | | | cribed | | | | +--------+ + + [...] as of this encounter Progress Notes Interface, Copy Manager In - 04/27/2005 11:34 AM PDT [id number] [facility] Date: 02/06/2005 Clinic: Mr. Monk is seen back for drain removal. The wound looks good. Facial nerve functions normally. He has the expected anesthesia. See him back in 6 weeks for final check. They will call me for the pathology tomorrow. Kade Frazier M.D., Ph.D. Professor - Head and Neck Surgery Department of Otolaryngology/Head and Neck Surgery [facility] [address] FAX [phone] email - [email or web address] / [id number] / [id number] / [id number] / [id number] Electronically signed by Kade Frazier 02-22-2005 10:08:10 PM documented i n this encounter Plan of Treatment Not on filedocumented as of this encounter Visit Diagnoses Not on filedocumented in this encounter"
--- OUTSIDE RECORDS SUMMARY | ~2019-09-22 | XMS | Encounter Summary ---
Demographics + + + | Address | [address] | | | [place] [address] | + + + | Home Phone [...] | Organization | [facility] | [...] Team Providers + +------+ + | Care Car Painter Name | Role | Phone | + +------+ + | Chava Ibanez | PCP | | | MD | | | + +------+ + Reason for Visit +--------+ + | Reason | Comments | +--------+ + | Other | Bronchiectasis | +--------+ + Encounter Details +--------+---------+ + + + | Date | Type | Department | Care Team | Description | +--------+---------+ + + + | 12/01/ | Office | [facility] | Dano Wong | Bronchiectasis (HCC) | | 2012 | Visit | PULMONARY [address] | [place] [address] [address] | (Primary Dx); | | | | [place], | [place], [place] | [place], | | | | [place] [address] | [address] | OBSTRUCTIVE CHRONIC; | | | | [phone] | | Elevated rheumatoid | | | | | | factor; Sjogren's | | | | | | syndrome (HCC); | | | | | | Pulmonary fibrosis, | | | | | | postinflammatory | | | | | | ([facility]); Obstructive | | | | | | sleep apnea; | | | | | | Rhinitis, chronic; | | | | | | [...] + + + | Blood Pressure | 120/68 | 12/01/2012 9:53 AM | | | | | PST | | + + + + + | Pulse | 68 | 12/01/2012 9:53 AM | | | | | PST | | + + + + + | Temperature | - | - | | + + + + + | Respiratory Rate | - | - | | + + + + + | Oxygen Saturation | 99% | 12/01/2012 9:53 AM | | | | | PST | | + + + + + | Inhaled Oxygen | - | - | | | Concentration | | | | + + + + + | Weight | 91.1 kg (200 lb 14.4 | 12/01/2012 9:53 AM | | | | oz) | PST | | + + + + + | Height | 180.3 cm (5' 11") | 12/01/2012 9:53 AM | | | | | PST | | + + + + + | Body Mass Index | 28.02 | 12/01/2012 9:53 AM | | | | | PST | | + + + + + documented in this encounter Patient Instructions Patient Instructions Dano Wong MD - 12/01/2012 10:16 AM PSTKeep up your great work with your weight and using your inhaler. I think you are doing very well. Continue good hygiene to avoid catching colds. documented in this encounter Progress Notes Dano Wong MD - 12/01/2012 10:24 AM PSTFormatting of this note might be differe nt from the original. Dano Wong MD [facility] [address] [place] [address] 12/01/2012 Rachel Monk 1935 History: Rachel Monk is a 76 y.o. male followed for several respiratory problems. Our ongoing c are is primarily focused on his bronchiectasis. Before I first saw him in September 2004, he had long-standing problems with upper airway congestion. Dr. Boston in [place] had perfo rmed to sinus surgeries. In late 2003 he developed worsening cough, recurrent respiratory i nfections, and he began having intermittent night sweats and raising very thick mucus. He a lso had a large amount of ongoing sinus congestion and postnasal drip. 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 He also had a positive rheumatoid factor although without overt signs or symptoms of rheumatoid arthritis. Cultures of his sputum showed a very heavy growth of Klebsiella and he was treated with cip rofloxacin. He was also placed on an inhaled steroid, and following beginning inhaled budes onide, he noted very significant improvement. A CT scan of his chest in September 2007 confir med bronchiectasis. He also previously would produce some bronchial casts and significant m ucous plugs at times. This has improved over the years with use of the inhaled corticostero id. Mr. Monk also has had some injuries to his chest. At about age 17, he had a football injur y. 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 We did obtain a [facility] x-ray at his last visit which did show an eventration of the right hemidiaphragm. In 2005 his symptoms increased and we cultured methicillin sensitive staph aureus, as well as 2 species of Klebsiella, from his sputum. He was treated for 3 weeks with Augmentin. In September 2006, Raoultella was cultured from his sputum he was treated with levofloxacin. In the past, he is tried reducing his Pulmicort dose from the current 2 puffs twice daily d own to 1 puff twice daily. However, within a few weeks of dose reduction he usually notices increasing chest congestion and cough. This past year, Mr. Monk is really done very well. His cough has really not bothered him a nd he only occasionally produces mucous plugs. He was having some dry mouth and Dr. Boston did a lip biopsy and he was told that he has Sjogren's syndrome. He was seen last year, he had had some mildly elevated blood sugars. This caused him to in crease his exercise and also control his diet better. He lost about 25 pounds and has kept most of that off. He continues to exercise well. He has expressed concern about his strong family history of cancer. Patient Active Problem List Diagnoses RHINITIS, CHRONIC OBSTRUCTIVE SLEEP APNEA BRONCHIECTASIS ABNORMAL CHEST XRAY PULMONARY FIBROSIS, POSTINFLAMMATORY ABNORMAL SPUTUM BRONCHITIS, OBSTRUCTIVE CHRONIC Diaphragmatic eventration Sjogren's syndrome Elevated rheumatoid factor Current Outpatient Prescriptions Medication Sig Dispense Refill Multiple Vitamins-Minerals (EYE VITAMINS) CAPS Take by mouth 2 times daily. potassium chloride (KLOR-CON) 20 MEQ packet Take 40 mEq by mouth 3 times daily. Coalgood-3 Fatty Acids (OMEGA 3 PO) Take 1,200 mg by mouth 2 times daily. PULMICORT FLEXHALER 180 MCG/ACT inhaler INHALE 2 PUFFS TWICE A DAY 3 each 4 finasteride (PROSCAR) 5 mg tablet Take 5 mg by mouth Daily. diltiazem (CARDIZEM CD) 240 MG 24 hr capsule Take 240 mg by mouth Daily. triamterene-hydrochlorothiazide (DYAZIDE) 37.5-25 MG per capsule 2 capsules by mouth da almaz esomeprazole (NEXIUM) 40 mg capsule Take 40 mg by mouth Daily. prednisoLONE (PRED FORTE) 1% ophthalmic suspension one drop in each eye twice daily levothyroxine (SYNTHROID, LEVOTHROID) 150 mcg tablet Take 150 mcg by mouth Daily. telmisartan (MICARDIS) 40 mg tablet Take 40 mg by mouth Daily. Allergies Allergen Reactions Sulfa Antibiotics Past Medical History was reviewed and updated in the electronic record. Review of Systems The chronic respiratory symptoms of mucus production and rhinitis are both in unusually goo d control. He has not had any respiratory infections this winter. Physical Examination: BP 120/68 | Pulse 68 | Ht 1.803 m (5' 11") | Wt 91.128 kg (200 lb 14.4 oz) | BMI 28.02 kg/m 2 | SpO2 99% General: Pleasant middle-aged man in no acute distress. He has some upper thoracic kyphosi s. HEENT: Mildly small airway. No thrush. Neck: Normal circumference. Lungs: Normal resonance to percussion. Breath sounds mildly diminished throughout the ches t. No crackles today. No wheezes or rhonchi. Heart: Regular rate and rhythm. No murmur or gallop. Extremities: No clubbing, cyanosis, or edema. No changes of the hands suggesting inflammat ory arthritis. Skin: No eczema. Warm and dry. We did review his chest x-ray from November 07, 2011, his last visit. It showed mild hyper inflation. There was a right diaphragmatic eventration with bowel interposition. Assessment: 1. Bronchiectasis 2. BRONCHITIS, OBSTRUCTIVE CHRONIC 3. Elevated rheumatoid factor He has radiographic evidence of right lower lobe bronchiectasis. At times he has persisten t crackles in the right lower lung zone. CT scan of the chest has confirmed the presence of right lower lobe bronchiectasis. Contributing etiologies include his bakery work and possi meenakshi the positive rheumatoid factor, although he does not have clinical rheumatoid arthritis. His symptoms have responded nicely to chronic inhaled steroids. He is reluctant to consid er reducing the dose of his inhaled steroid which is very reasonable. 4. Sjogren's syndrome He does have sicca syndrome. He has managed this with oral hard candies. This could relat e to his positive rheumatoid factor as well. 5. Pulmonary fibrosis, postinflammatory He does have some mild focal areas of fibrosis and scarring on chest CT scan, but by variou s imaging studies this has not progressed. 6. Obstructive sleep apnea He was diagnosed with sleep apnea by another physician before he saw me. His sleep study f rom October 15, 2004 showed an apnea hypopnea index of 17.6 but very minimal oxygen desatura tion falling only to 89%. He did not tolerate CPAP and does not wish to try it in the futur e. He has lost significant weight since that sleep study and denies daytime sleepiness. 7. Rhinitis, chronic These symptoms have improved and he is actually not using any nasal sprays currently. 8. Diaphragmatic eventration This was noted on his chest x-ray from last year and on previous imaging studies. He had a couple episodes of chest trauma in his life that likely contributed. PLAN: 1. Continue Pulmicort Flexeril or 180 mcg strength 2 puffs twice a day, rinsing throat aft er use. 2. Continue good hygiene to avoid respiratory infections. 3. He was congratulated on his weight reduction and exercise. 4. Flu vaccine is recommended each fall. 5. We discussed the results of his chest x-ray from last year. 6. Followup in one year earlier if problems. Dano Wong documented in t his encounter Plan of Treatment Not on filedocumented as of this encounter Visit Diagnoses + + | Diagnosis | + + | Bronchiectasis (HCC) - Primary Bronchiectasis without acute exacerbation | + + | BRONCHITIS, OBSTRUCTIVE CHRONIC Obstructive chronic bronchitis without exacerbation | + + | Elevated rheumatoid factor Other and unspecified nonspecific immunological findings | + + | Sjogren's syndrome (HCC) Sicca syndrome | + + | Pulmonary fibrosis, postinflammatory (HCC) Postinflammatory pulmonary fibrosis | + + | Obstructive sleep apnea Obstructive sleep apnea (adult) (pediatric) | + + | Rhinitis, chronic Chronic rhinitis | + + | Diaphragmatic eventration Congenital anomaly of diaphragm | + + documented in this encounter
--- OUTSIDE RECORDS SUMMARY | ~2019-09-22 | XMS | Encounter Summary ---
Demographics + + + | Address | [address] | | | [place] [address] | + + + | Home Phone [...] Organization | [facility] | | | and [...] Team Providers + +------+ + | Care Dowel Pointer Name | Role | Phone | + [...] + + | 04/21/ | Office | [facility] | Jeffrey Mejia, | Bronchiectasis | | 2018 | Visit | [address]ULMONARY [address] | MD [address] | without complication | | | | [place], | [place], [place] | ([facility]) (Primary Dx) | | | | [place] [address] | [address] | | | | | [phone] | | | +--------+---------+ + + + [...] spray The nasal spray isnotrecommended for the 1084-9144 flu season. The CDC says the nasal s pray did not seem to protect against the flu over the last several flu seasons. Date Last Reviewed: 08/28/201619994928-0956 [employer]. [address] [place], [place] [address]. All righ ts reserved. This information is [...]
--- OUTSIDE RECORDS SUMMARY | ~2019-09-22 | XMS | Encounter Summary ---
Demographics + + + | Address | [address] | | | [place] [address] | + + + | Home Phone | | + + + | Preferred Language | Unknown | + + + | Marital Status | | + + + | Rastafari Affiliation | ADV | + + + | Race | White | + + + | Ethnic Group | Not or | + + + Author + + + | Author | [facility] | + + + | Organization | [facility] | + + + | [...] Team Providers + +------+ + | Care Thread Milling Machine Set Up Operator Name | Role | Phone | + +------+ + | No Pcp Per Patient | PCP | Unavailable | + +------+ + Reason for Visit + + + | Reason | Comments | + + + | Follow-up visit | BPH w/LUTS, pyuria | + + + Encounter Details +--------+---------+ + + + | Date | Type | Department | Care Team | Description | +--------+---------+ + + + | 09/08/ | Office | [facility] | Estuardo Lindo, | Elevated PSA | | 2018 | Visit | [place] [address] | [address] | (Primary Dx); BPH | | | | [place], [place] | [place] [address] | with | | | | [address] | [phone] | obstruction/lower | | | | [phone] | | urinary tract | | | | | | symptoms; Nocturia | | | | | | more than twice per | | | | | | night | +--------+---------+ + + + Social History [...] this encounter Last Filed Vital Signs + +---------+ + + | Vital Sign | Reading | Time Taken | Comments | + +---------+ + + | Blood Pressure | 163/93 | 09/08/2018 11:55 AM | | | | | PST | | + +---------+ + + | Pulse | 73 | 09/08/2018 11:55 AM | | | | | PST | | + +---------+ + + | Temperature | - | - | | + +---------+ + + | Respiratory Rate | 16 | 09/08/2018 11:55 AM | | | | | PST | | + +---------+ + + | Oxygen Saturation | - | - | | + +---------+ + + | Inhaled Oxygen | - | - | | | Concentration | | | | + +---------+ + + | Weight | - | - | | + +---------+ + + | Height | - | - | | + +---------+ + + | Body Mass Index | - | - | | + +---------+ + + documented in this encounter Patient Instructions Patient Instructions Estuardo Lindo MD - 09/08/2018 12:00 PM PSTTerk, It was good to see you today. I hope that our visit was helpful. Here is a brief list of my conclusions ("Assessment"s) and recommendations ("Plan"s) for each of the problems we deal t with today: Genitourinary System ASSESSMENT: Elevated prostate specific antigen-very encouraging response to finasteride at 6 months following initiation of treatment. BPH -history of hematuria related to irregular resected tissue Nocturia-based on history I think this is likely secondary to nocturnal polyuria. PLAN: Continue finasteride Begin desmopressin nasal spray 1 spray daily (0.1) One week after you begin the spray go to your local lab and have a basic metabolic panel drawn (the girls will give you a lab slip when you leave today) You should hear from me within several days after the lab test. If you do not please ca ll our office to make sure we got the results. I would like to see you back in about 6 months with a repeat PSA prior to visit. Please place a reminder on your personal calendar to call us if you have not received an ap pointment confirmation 30 days before the suggested follow-up date. I hope that this information is useful and that everything goes well for you. Please contac t me (through "Onaro" or our office phone) if I can be of any assistance before our next v isit. With best wishes, Estuardo Lindo MD, FACS documented in this encounter Progress Notes Dora Shelton MA - 09/08/2018 12:00 PM PST Review of Systems Constitutional: Negative for chills, fever and weight loss. HENT: Negative for sore throat. Eyes: Negative for blurred vision and double vision. Respiratory: Negative for cough, shortness of breath and wheezing. Cardiovascular: Negative for chest pain, palpitations and orthopnea. Gastrointestinal: Negative for constipation, heartburn, nausea and vomiting. Genitourinary: Positive for urgency. Negative for dysuria, flank pain, frequency and hematu jud. Musculoskeletal: Negative for joint pain and myalgias. Skin: Negative for itching and rash. Neurological: Negative for dizziness, tremors, seizures and headaches. Endo/Heme/Allergies: Negative for environmental allergies. Does not bruise/bleed easily. Psychiatric/Behavioral: Negative for depression and memory loss. The patient does not have insomnia. AUA SYMPTOMS Total Symptom Score:: 8 Medications reconciled and reported to provider. A Equipment Worker was offered to the patient and declined. Estuardo Pollock MD - 09/08/2018 12:00 PM PST CC: Follow-up visit - BPH w/LUTS, pyuria HPI: Pankaj returns with the following interval history: Physically, he is doing quite well. He has not had any recurrence of gross hematuria. He does not have any urinary pain. He is losing sleep due to nocturia which occurs at least 4 times nightly. He says that he voids in relatively large amounts on each occasion and he does not have any difficulty in itiating a stream. Furthermore he does not have daytime urgency or frequency. His voiding status is characterized by the [...] you found it difficult to postpone urination?: About Half the Time 5. How often have you had a weak urinary stream?: Less than 1 in 5 Times 6. How often have you had to push or strain to begin urination?: Not at All 7. How many times did you most typically get up to urinate from the time you went to bed a t night until the time you got up in the morning?: 4 Times 8. If you were to spend the rest of your life with your urinary condition the way it is no w, how would you feel about it?: Mixed Total AUA Symptom Score Total Symptom Score:: 8 Pankaj's urological history is reviewed, updated (including today) and summarized as follows: ELEVATED PSA 1990-prostate biopsy -3 cores ( mild glandular atypia on single core) 1998-TRUS Bx-benign with single focus of basal cell hyperplasia (6 cores) 07/03/2004-TRUS Bx-benign (6 cores) 2012-PSA-2.47 (on finasteride) Approximately 2015-discontinued finasteride when refill not authorized 10/14/2017 - PSA, total-9.83, free-11 percent 11/19/2017 - PSA - 10 (Restarted Finasteride) BPH/HEMATURIA 7180-YCQE-24 grams BPH Had subsequent difficulty with recurrent gross hematuria of prostatic origin, managed with long-term finasteride June 2017 (over a year after discontinuing finasteride) saw some initial hematuria after heavy lifting ERECTILE DYSFUNCTION 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 - penoscrotal incision, 18 cm cylinders wi th 2 cm rear-tip extenders, 65 cc perivesical reservoir 01/27/2002-explant of the Ultrex cylinders and replacement with CX, the 18 cm cylinders, 4 cm rear-tip extenders, using existing pump and reservoir 2002-early development of prominent kink and corporal erosion right lateral shaft base-su ged expectantly PYURIA 10/14/[id number]-GJ-ZDDt-5 (Inter[facility]) NOCTURIA: 09/08/2018-reports trouble some nocturia 4 times per night begins desmopressin 0.1 mg HS (s pray) ROS: (see MA note) reviewed EXAM: Vital Signs BP 163/93 | Pulse 73 | RR 16 General: Well-developed, well-nourished adult male of stated [...] PSAs: Lab Results Component Value Date PSA 3.58 09/03/2018 PSA 3.54 02/24/2018 PSA 10.15 11/19/2017 Lab Results Component Value Date/Time TESTOSTERONE 2.60 04/10/2011 12:44 PM HCT 46.0 02/03/2005 04:31 PM PSA 3.58 09/03/2018 07:50 AM Lab Results Component Value Date NA [...] 11/19/2017 URINESQEPI None 11/19/2017 URINEWBC 0-2 11/19/2017 IMAGING: No results found. Genitourinary System ASSESSMENT: Elevated prostate specific antigen-very encouraging response to finasteride at 6 months following initiation of treatment. BPH -history of hematuria related to irregular resected tissue Nocturia-based on history I think this is likely secondary to nocturnal polyuria. PLAN: Continue finasteride Begin desmopressin nasal spray 1 spray daily (0.1) One week after you begin the spray go to your local lab and have a basic metabolic panel drawn (the girls will give you a lab slip when you leave today) You should hear from me within several days after the lab test. If you do not please ca ll our office to make sure we got the results. I would like to see you back in about 6 months with a repeat PSA prior to visit. (Iguu-im-wmuv time 25 minutes, 90% counselling) This record was dictated and transcribed (using Fluency Direct Speech Recognition Softwa re) in the patient's presence at the time of the visit Patient agreed to call if he has not received appointment confirmation 30 days in [employer] e of recommended follow-up date. documented in this e ncounter Plan of Treatment + +------+--------+ + + | Name | Type | Priori | Associated Diagnoses | Order Schedule | | | | ty | | | + +------+--------+ + + | BASIC METABOLIC SET | Lab | Routin | Nocturia more than | Expected: 09/15/2018 | | (NA, K, CL, TCO2, | | e | twice per night | (Approximate), | | BUN, CR, GLU, CA) | | | | Expires: 10/09/2019 | + +------+--------+ + + documented as [...] than twice per night | + + documented in this encounter
--- OUTSIDE RECORDS SUMMARY | ~2019-09-22 | XMS | Encounter Summary ---
Demographics + + + | Address | [address] | | | [place] [address] | + + + | Home Phone | | + + + | Preferred Language | Unknown | + + + | Marital Status | | + + + | Mu-Ism Affiliation | 1001 | + + + | Race | Unknown | + + + | Ethnic Group | Unknown | + + + Author + + + | Author | [facility] | | | and Jayjayana | + + + | Organization | [facility] | | | [...] Team Providers + +------+ + | Care Ranch Cook Name | Role | Phone | + [...] 2012 | | GASTROENTEROLOGY | [address], [place] | | | | | [address] [place] | [address] [place] | | | | | [address] [place], [place] | [address] | | | | | [address] | | | | | | [phone] | | | +--------+ + + + [...]
--- OUTSIDE RECORDS SUMMARY | ~2019-09-22 | XMS | Encounter Summary ---
Demographics + + + | Address | [address] | | | [place] [address] | + + + | Home Phone | | + + + | Preferred Language | Unknown | + + + | Marital Status | | + + + | Faith Affiliation | ADV | + + + | Race | White | + + + | Ethnic Group | Not or | + + + Author + + + | Author | [facility] | + + + | Organization | [facility] | + + + | [...] Team Providers + +------+ + | Care Relations Director Name | Role | Phone | + [...] Dx); BPH | | | | [place], [place] | [place] [address] | with | | | | [address] | [phone] | obstruction/lower | | | | [phone] | | urinary tract | | | [...] for you. Please contac t me (through "Vimty" or our office phone) if I can [...] updated and reported to Dr. Lindo A It Consultant was offered to the patient and declined. [...] (Restarted Finasteride) 09/03/2018-PSA-3.58 03/07/2019-PSA-3.17 (on finasteride) BPH/HEMATURIA 4956-ANDP-68 grams BPH Had subsequent difficulty with recurrent [...] right lateral shaft base-su ged expectantly PYURIA 10/14/[id number]-LZ-IUNu-5 (Interpath) NOCTURIA: 09/08/2018-reports trouble some nocturia 4 [...] and transcribed (using Fluency Direct Speech Recognition Lytics) in the patient's presence at the time of the visit Patient agreed to call if he has not received appointment confirmation 30 days in [employer] e of recommended follow-up date. documented in [...]
--- OUTSIDE RECORDS SUMMARY | ~2019-09-22 | XMS | Encounter Summary ---
Demographics + + + | Address | [address] | | | [place] [address] | + + + | Home Phone | | + + + | Preferred Language | Unknown | + + + | Marital Status | | + + + | Quaker Affiliation | 1001 | + + + | Race | Unknown | + + + | Ethnic Group | Unknown | + + + Author + + + | Author | [facility] | | | and Jayjayana | + + + | Organization | [facility] | [...] Team Providers + +------+ + | Care Merchant Mill Utility Worker Name | Role | Phone | [...] + | 04/25/ | Office | [facility] | Jeffrey Mejia, | Bronchiectasis | | 2016 | Visit | [address]ULMONARY [address] | MD [address] | without complication | | | | [place], | [place], [place] | ([facility]) (Primary Dx); | | | | [place] [address] | [address] | Need for | | | | [phone] | | pneumococcal | | | | [...] that provide care in hospitals, nursing homes, [facility], and other facilities Household members, including children, [...] allergic reaction to a previous flu vaccine Guillain-[place] syndrome (a severe paralyzing condition) The nasal spray is recommended for people from 2 to 49 years old. It should not be given to adults who: Are Have weakened immune systems Have egg allergies Will be in close contact with someone with a weakened immune system Have taken antiviral medication in the past 2 days 0575-9651 [employer]. [address] [place] [address], [place] [address]. All righ ts reserved. This information is not intended as a substitute for professional medical care. Always follow your healthcare professional's instructions. documented in this encounter Progress Notes Jeffrey Mejia MD - 04/25/2016 1:06 PM PDTFormatting of this note might be different f rom the original. Pulmonary Follow Up 04/25/2016 [facility] Rachel Monk is a 80 y.o. male [...] mouth 2 times daily., Disp: , Rfl: [place]-3 Fatty Acids (OMEGA 3 PO), Take 450 [...]
--- OUTSIDE RECORDS SUMMARY | ~2019-09-22 | XMS | Encounter Summary ---
Demographics + + + | Address | [address] | | | [place] [address] | + + + | Home Phone | | + + + | Preferred Language | Unknown | + + + | Marital Status | | + + + | Latter-Day Affiliation | ADV | + + + | Race | White | + + + | Ethnic Group | Not or | + + + Author + + + | Author | [facility] | + + + | Organization | [facility] | + + + [...] Team Providers + +------+ + | Care Barrel Loader And Cleaner Name | Role | Phone | + [...] St | | | | | [place], [place] | [place], [place] [address] | | | | | [address] | [phone] | | | | | [phone] | | | +--------+ + + + [...]
--- OUTSIDE RECORDS SUMMARY | ~2019-09-22 | XMS | Encounter Summary ---
Demographics + + + | Address | [address] | | | [place] [address] | + + + | Home Phone | | + + + | Preferred Language | Unknown | + + + | Marital Status | | + + + | Sabianism Affiliation | 1001 | + + + | Race | Unknown | + + + | Ethnic Group | Unknown | + + + Author + + + | Author | [facility] | | | and Jayjayana | + + + | Organization | [facility] | | | and [place] | [...] Team Providers + +------+ + | Care Outside Contractor Sales Name | Role | Phone | + +------+ + PCP | Unavailable | + +------+ + Encounter Details +--------+ + + + + | Date | Type | Department | Care Team | Description | +--------+ + + + + | 09/30/ | Hospital | [facility] | Dano Wong | | | 2007 | Encounter | MED CTR XRAY [address] | [address] | | | | | [place] | [place], [place] | | | | | [place] [address] | [address] | | | | | [phone] | | | +--------+ + + + [...]
--- OUTSIDE RECORDS SUMMARY | ~2019-09-22 | XMS | Clinical Summary ---
Demographics + + + | Address | [address] | | | [place] [address] | + + + | Home Phone | | + + + | Preferred Language | Unknown | + + + | Marital Status | | + + + | Cheondoism Affiliation | Unknown | + + + | Race | Unknown | + + + | Ethnic Group | Unknown | + + + Author + + + | Author | [facility] (Historical as of | | | 05-14-19) | + + + | Organization | [facility] (Historical as of | | | 05-14-19) | + + + | Address | Unknown | + + + | Phone | Unavailable | + + + Support + + +---------+ + | Name | Relationship | Address | Phone | + + +---------+ + | Lisa Monk | ECON | Unknown | | + + +---------+ + Care Team Providers + +------+ + | Care Refrigeration Brazer/Solderer Name | Role | Phone | + +------+ + PP | Unavailable | + +------+ + Allergies Not on File Current Medications Not on file Active Problems Not on file Social History + +-------+ +--------+------+ | Tobacco [...] on file | | + + + Plan of Treatment + + + + + | Health Maintenance | Due Date | Last Done | Comments | + + + + + | Vaccine: | | | | | Dtap/Tdap/Td (1 - | 5 | | | | Tdap) | | | | + + + + + | Vaccine: Zoster (1 | | | | | of 2) | 6 | | | + + + + + | Vaccine: | | | | | Pneumococcal 65+ | 1 | | | | Low/Medium Risk (1 | | | | | of 2 - PCV13) | | | | + + + + + | Vaccine: Influenza | | | | | (#1) | 9 | | | + + + + + Results Not on filefrom Last 3 Months Insurance + +--------+ +------+-------+ + | Payer | Benefi | Subscriber | Type | Phone | Address | | | t Plan | ID | | | | | | / | | | | | | | Group | | | | | + +--------+ +------+-------+ + | MEDICARE | MEDICA | [id number] | | | [address] | | | RE | | | | [place], [place] [address] | | | IP-OP | | | | | + +--------+ +------+-------+ + | [employer] | UNITED | [id number] | | | | | | | | | | | | | HEALTH | | | | | | | CARE - | | | | | | | AARP | | | | | + +--------+ +------+-------+ + + +--------+ +--------+ + + | Guarantor Name | Accoun | Relation to | Date | Phone | Billing Address | | | t Type | Patient | of | | | | | | | | | | + +--------+ +--------+ + + | GURWINDER MONK W | Person | Self [birth year] Home: | [address] | | | al/Fam | | 1936 | [phone] | [place] [address] | | | almaz | | | [phone] | | + +--------+ +--------+ + +"
--- OUTSIDE RECORDS SUMMARY | ~2019-09-22 | XMS | Encounter Summary ---
Demographics + + + | Address | [address] | | | [place] [address] | + + + | Home Phone [...] Team Providers + +------+ + | Care Brazing Machine Operator Name | Role | Phone [...] as of this encounter Progress Notes Interface, Professor Of Art History In - 04/27/2005 12:30 AM PDT [id number] 12/26/2004 12/26/2004 [id number] LINCOLN Zheng [place] [address] [place] [address] or Department of Otolaryngology - PV01 December 26, 2004 Mckeon M.D. [facility] [address] [place] [address] RE: GURWINDER STARK MR #: [id number] Dear Dr. Holcomb: I saw Mr. Stark [...] Department of Otolaryngology/Head and Neck Surgery [facility] PV-01 FAX [phone] email - [email or web address] / [id number] / [id number] / [phone] / [phone] C: 01/06/2005 amm cc: Magnus Holcomb M.D. FAX: [phone] documented i n this encounter Plan of Treatment Not on filedocumented as of this encounter Visit Diagnoses Not on filedocumented in this encounter"
--- OUTSIDE RECORDS SUMMARY | ~2019-09-22 | XMS | Encounter Summary ---
Demographics + + + | Address | [address] | | | [place] [address] | + + + | Home Phone | | + + + | Preferred Language | Unknown | + + + | Marital Status | | + + + | Congregational Affiliation | ADV | + + + [...] Team Providers + +------+ + | Care Chemical Supervisor Name | Role | Phone | + [...] Dx); BPH | | | | [place], [place] | [place] [address] | with | | | | [address] | [phone] | obstruction/lower | | | | [phone] | | urinary tract | | | [...] for you. Please contac t me (through "Conjunct" or our office phone) if I can [...] Medications reconciled and reported to provider. A Mathematics Professor was offered to the patient and declined. [...] - PSA - 10 (Restarted Finasteride) BPH/HEMATURIA 5937-XEEZ-78 grams BPH Had subsequent difficulty with recurrent [...] right lateral shaft base-su ged expectantly PYURIA 10/14/20175194-ZX-OBZe-5 ([facility]) NOCTURIA: 09/08/2018-reports trouble some nocturia 4 [...] with a repeat PSA prior to visit. (Jmgj-ni-bwmg time 25 minutes, 90% counselling) This record was dictated and transcribed (using Fluency Direct Speech Recognition Softwa re) in the patient's presence at the time of the visit Patient agreed to call if he has not received appointment confirmation 30 days in [employer] e of recommended follow-up date. documented in [...]
--- OUTSIDE RECORDS SUMMARY | ~2019-09-22 | XMS | Encounter Summary ---
Demographics + + + | Address | [address] | | | [place] [address] | + + + | Home Phone | | + + + | Preferred Language | Unknown | + + + | Marital Status | | + + + | Latter-Day Affiliation | 1001 | + + + | Race | Unknown | + + + | Ethnic Group | Unknown | + + + Author + + + | Author | [facility] | | | and Jayjayana | + + + | Organization | [facility] | | | and [...] Team Providers + +------+ + | Care Insecticide Maker Name | Role | Phone | [...] [address] | | | | | [place], | [place], [place] | | | | | [place] [address] | [address] | | | | | [phone] | | | +--------+--------+ + + + [...]
--- OUTSIDE RECORDS SUMMARY | ~2019-09-22 | XMS | Encounter Summary ---
Demographics + + + | Address | [address] | | | [place] [address] | + + + | Home Phone | | + + + | Preferred Language | Unknown | + + + | Marital Status | | + + + | Baptism Affiliation | 1001 | + + + | Race | Unknown | + + + | Ethnic Group | Unknown | + + + Author + + + | Author | [facility] | | | and Jayjayana | + + + | Organization | [facility] | | | and [place] [...] Team Providers + +------+ + | Care Capacity Planner Name | Role | Phone | + [...] Description | +--------+--------+ + + + | 12/09/ | Refill | [facility] [place] | Dano Wong | Medication Refill | | 2014 | | PULMONARY [address] | [address] | | | | | [place], | [place], [place] | | | | | [place] [address] | [address] | | | | | [phone] | | | +--------+--------+ + + + [...]
--- OUTSIDE RECORDS SUMMARY | ~2019-09-22 | XMS | Encounter Summary ---
Demographics + + + | Address | [address] | | | [place] [address] | + + + | Home Phone | | + + + | Preferred Language | Unknown | + + + | Marital Status | | + + + | Voodoo Affiliation | 1001 | + + + | Race | Unknown | + + + | Ethnic Group | Unknown | + + + Author + + + | Author | [facility] | | | and Jayjayana | + + + | Organization | [facility] | [...] Providers + +------+ + | Care Health Commissioner Name | Role | Phone | + [...] 2012 | | GASTROENTEROLOGY | [address], [place] | | | | | [address] [place] | [address] [place], [place] | | | | | [address] [place], [place] | [address] | | | | | [address] | | | | | | [phone] | | | +--------+ + + + [...]
--- OUTSIDE RECORDS SUMMARY | ~2019-09-22 | XMS | Encounter Summary ---
Demographics + + + | Address | [address] | | | [place] [address] | + + + | Home Phone [...] Team Providers + +------+ + | Care Purchasing And Fiscal Clerk Name | Role | Phone | + +------+ + | No Pcp Per Patient | PCP | Unavailable | + +------+ + Reason for Visit + + + | Reason | Comments | + + + | New Patient Visit | elevated PSA | + + + Consultation (Routine) +--------+--------+ + + + + | Status | Reason | Specialty | Diagnoses / | Referred By | Referred To | | | | | Procedures | Contact | Contact | +--------+--------+ + + + + | Closed | | Urology | Diagnoses | Shamar, | McMc | | | | | Neoplasm of | Chava Zamarripa, | Urology Gtd | | | | | uncertain | MD | [address] | | | | | behavior of | [place] | [address] [facility] | | | | | prostate | FAMILY | [place], [place] | | | | | | MEDICINE | [address] | | | | | | [address] | Phone: | | | | | | TONY CATHRYN | [phone] | | | | | | [place], | Fax: | | | | | | [place] [address] | [phone] | | | | | | Phone: | | | | | | | [phone] | | | | | | | Fax: | | | | | | | [phone] | | +--------+--------+ + + + + Encounter Details +--------+---------+ + + + | Date | Type | Department | Care Team | Description | +--------+---------+ + + + | 11/19/ | Office | [facility] | Estuardo Lindo, | BPH with | | 2018 | Visit | [place] [address] | [address] | obstruction/lower | | | | [place], [place] | [place] [address] | urinary tract | | | | [address] | [phone] | symptoms (Primary | | | | [phone] | | Dx); Pyuria | +--------+---------+ + + + Social History [...] + + + | Blood Pressure | 150/99 | 11/19/2017 10:28 AM | | | | | PST | | + + + + + | Pulse | 82 | 11/19/2017 10:28 AM | | | | | PST | | + + + + + | Temperature | - | - | | + + + + + | Respiratory Rate | 16 | 11/19/2017 10:10 AM | | | | | PST | | + + + + + | Oxygen Saturation | - | - | | + + + + + | Inhaled Oxygen | - | - | | | Concentration | | | | + + + + + | Weight | 88.9 kg (196 lb) | 11/19/2017 10:10 AM | stated | | | | PST | | + + + + + | Height | 181.6 cm (5' 11.5") | 11/19/2017 10:10 AM | stated | | | | PST | | + + + + + | Body Mass Index | 26.96 | 11/19/2017 10:10 AM | | | | | PST | | + + + + + documented in this encounter Patient Instructions Patient Instructions Estuardo Lindo MD - 11/19/2017 11:00 AM PSTAndrzejk, It was good to see you today. I hope that our visit was helpful. Here is a brief list of my conclusions ("Assessment"s) and recommendations ("Plan"s) for each of the problems we deal t with today: Genitourinary System ASSESSMENT: Elevated prostate specific antigen, low percent free PSA, and prostate nodule-the overall appearance is highly suspicious for prostate cancer. On the other hand the interva l increase in PSA did occur at a time when the patient was no longer on finasteride (which vandana vela was taking at baseline) and this prostate has previously been biopsied on 3 occasions (for a total of 18 cores)-most recently 14 years ago. He also has a history of equivocal pyuria on a recent UA so the possibility of infection exists-and this may account for the increase in the PSA. Furthermore, although the patient is nearing 82, he is in excellent health and his outlook for exceptional longevity is excellent. Consequently the decision on how to pr oceed is complex and there are multiple options ranging from non intervention/observation-to aggressive TRUS/biopsy, with intent to treat for cure. We discussed these in detail and at length and patient asked what would you do if this were you" (he is my highly loved uncl dane) - after discussing this we have agreed to the plan as outlined below PLAN: UA with reflex micro and culture Obtain confirmatory PSA this morning at [facility] Restart finasteride (prescription issued) Repeat PSA in 3 months (at [facility]) We will plan to follow up with additional recommendations after the repeat PSA. I am go ing to ask Pankaj to call me 2 weeks after he has had his PSA checked-if he has not heard from me before then. Return in 6 months with PSA prior to visit ([facility]) I hope that this information is useful and that everything goes well for you. Please contac t me (through "[employer]" or our office phone) if I can be of any assistance before our next v isit. With best wishes, Estuardo Lindo MD, FACS documented in this encounter Progress Notes Yamile Mane MA - 11/19/2017 11:00 AM PST Review of Systems Constitutional: Negative for chills, fever and weight loss. HENT: Negative for sore throat. Eyes: Negative for blurred vision. Respiratory: Negative for cough, shortness of breath and wheezing. Cardiovascular: Negative for chest pain, palpitations and orthopnea. Gastrointestinal: Negative for constipation, heartburn, nausea and vomiting. Genitourinary: Negative for dysuria, flank pain, frequency, hematuria and urgency. Musculoskeletal: Negative for joint pain and myalgias. Skin: Negative for rash. Neurological: Negative for dizziness, tremors, seizures and headaches. Endo/Heme/Allergies: Bruises/bleeds easily. Psychiatric/Behavioral: Negative for depression and memory loss. The patient does not have insomnia. A Emergency Medicine Specialist was offered to the patient and declined. AUA SYMPTOMS Total Symptom Score:: 2 Estuardo Pollock MD - 11/19/2017 10:00 AM PST IDENTIFICATION: Jose is a 81 y.o. year-old male from [place], [place]. His primary care provider is Sandrita Ibanez MD CURRENT PROBLEM: New Patient Visit - elevated PSA HISTORY of PROBLEM: Uncle Pankaj was recently found to have a markedly elevated PSA and a prostate nodule by his primary physician. He is referred for evaluation. Additionally, he says that his PCP ident ified white blood cells in the urine and felt that he might have a urinary infection- but he does not want to treat with antibiotics until after you see me" His voiding symptoms are summarized in the following responses to the AUA questionaire: Over the past month or so: 1. How often have you had a sensation of not emptying your bladder completely after you fi nished urinating?: Not at All 2. How often have you had to urinate again less than two hours after you finished urinatin g?: Less than 1 in 5 Times 3. How often have you stopped and started again several times when you urinated?: Not at A ll 4. How often have you found it difficult to postpone urination?: Not at All 5. How often have you had a weak urinary stream?: Not at All 6. How often have you had to push or strain to begin urination?: Not at All 7. How many times did you most typically get up to urinate from the time you went to bed a t night until the time you got up in the morning?: 1 Time 8. If you were to spend the rest of your life with your urinary condition the way it is no w, how would you feel about it?: Mostly Satisfied Total AUA Symptom Score Total Symptom Score:: 2 He has a significant history of related urological problems which is updated (including toeloy rivera), categorized and summarized as follows: ELEVATED PSA 1990-prostate biopsy -3 cores ( mild glandular atypia on single core) 1998-TRUS Bx-benign with single focus of basal cell hyperplasia (6 cores) 07/03/2004-TRUS Bx-benign (6 cores) 2012-PSA-2.47 (on finasteride) Approximately 2015-discontinued finasteride when refill not authorized 10/14/2017-PSA, total-9.83, free-11 percent BPH/HEMATURIA 2423-QAPE-38 grams BPH Had subsequent difficulty with recurrent [...] right lateral shaft base-su ged expectantly PYURIA 10/14/20170741-XO-SQAm-5 ([facility]) PAST HISTORY: Medical: Past Medical History: Diagnosis Date Chronic reflux esophagitis Essential hypertension, benign 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 Last Dose Start Date End Date B2/VITS A,C,E/LUT/ZEAXANTH/MIN (ICAPS ORAL) Yes 06/10/12 -- Take 1 capsule by mouth two times daily. Associated Diagnoses: None FINASTERIDE 5 mg oral tablet Yes 07/07/16 -- TAKE 1 TABLET DAILY Associated Diagnoses: None budesonide (PULMICORT FLEXHALER) 180 mcg/actuation inhalation aerosol powdr breath activa priscila Yes 06/25/17 -- INHALE 2 PUFFS BY MOUTH TWICE DAILY Associated Diagnoses: None cholecalciferol (Vitamin D3) 2,000 unit oral capsule Yes -- -- Take by mouth. Associated Diagnoses: None cyanocobalamin (VITAMIN B-12) 500 mcg oral tablet Yes -- -- Take by mouth. Associated Diagnoses: None dilTIAZem CD 24 hour release 240 mg oral capsule,extended release 24hr Yes 06/10/12 -- Take by mouth. Associated Diagnoses: None esomeprazole (NEXIUM) 40 mg oral capsule,delayed release(DR/EC) Yes 06/10/12 -- Take by mouth. Associated Diagnoses: None folic acid 800 mcg oral tablet Yes -- -- Take 1 tablet by mouth once daily. Associated Diagnoses: None levothyroxine 175 mcg oral tablet Yes 10/21/17 -- Associated Diagnoses: None ofloxacin 0.3 % ophthalmic (eye) drops Yes 11/12/17 -- Associated Diagnoses: None potassium chloride SR 20 mEq oral tablet,ER particles/crystals Yes 04/05/17 -- Take 2 tablets twice daily Associated Diagnoses: None pyridoxine (vitamin B6) 100 mg oral tablet Yes -- -- Take 1 tablet by mouth once daily. Associated Diagnoses: None telmisartan 80 mg oral tablet Yes 03/11/16 -- Take one tablet daily Associated Diagnoses: None thiamine 250 mg oral tablet Yes -- -- Take by mouth. Associated Diagnoses: None triamterene-hydrochlorothiazide 75-50 mg oral tablet Yes 02/04/16 -- Take one tablet daily Associated Diagnoses: None Social History: Social History Social History Marital status: Spouse name: N/A Number of children: N/A Years of education: N/A Occupational History Not on file. Social History Main Topics Smoking status: Never Smoker Smokeless tobacco: Never Used Alcohol use No Drug use: Unknown Sexual activity: Not on file Other Topics Concern Caffeine Concern No Social History Narrative No narrative on file Family History: Family History Problem Relation Heart Failure Mother Heart Disease Mother Cancer Father lung and liver Heart Attack Maternal Grandfather Anesthesia Neg Hx Breast Cancer Neg Hx Prostate Cancer Neg Hx ROS: (see MA note) reviewed EXAM: Vital Signs BP 150/99 | Pulse 82 | RR 16 | Ht 1.816 m (5' 11.5") | Wt 88.9 kg (196 lb) | BM I 26.96 kg/(m^2) General: Well-developed, well-nourished adult male of stated [...] the mid - right lateral prostate. LAB: 10/14/2017-PSA-9.83 04/21/2017-creatinine 1.15, EGFR 61 IMAGING: No results found. Genitourinary System ASSESSMENT: Elevated prostate specific antigen, low percent free PSA, and prostate nodule-the overall appearance is highly suspicious for prostate cancer. On the other hand the interva l increase in PSA did occur at a time when the patient was no longer on finasteride (which vandana vela was taking at baseline) and this prostate has previously been biopsied on 3 occasions (for a total of 18 cores)-most recently 14 years ago. He also has a history of equivocal pyuria on a recent UA so the possibility of infection exists-and this may account for the increase in the PSA. Furthermore, although the patient is nearing 82, he is in excellent health and his outlook for exceptional longevity is excellent. Consequently the decision on how to pr oceed is complex and there are multiple options ranging from non intervention/observation-to aggressive TRUS/biopsy, with intent to treat for cure. We discussed these in detail and at length and patient asked what would you do if this were you" (he is my highly loved uncl dane) - after discussing this we have agreed to the plan as outlined below PLAN: UA with reflex micro and culture Obtain confirmatory PSA this morning at [facility] Restart finasteride (prescription issued) Repeat PSA in 3 months (at [facility]) We will plan to follow up with additional recommendations after the repeat PSA. I am go ing to ask Pankaj to call me 2 weeks after he has had his PSA checked-if he has not heard from me before then. Return in 6 months with PSA prior to visit ([facility]) This ezyg-gy-tucs visit lasted over 45 minutes and 90% of this time was spent in counseling . This record was dictated and transcribed (using [employer] Speech Recognition Software) in the patient's presence at the time of the visit documented in this e ncounter Plan of Treatment Not on filedocumented as of this encounter Results UA, DIPSTICK W/ REFLEX (11/19/2017 11:39 AM PST) + + + + + + | Component | Value | Ref Range | Performed | Pathologist | | | | | At | Signature | + + + + + + | COLOR(UR) | Yellow | | [facility] | | | | | | A MEDICAL | | | | | | CENTER | | + + + + + + | APPEARANCE | Hazy | | [facility] | | | | | | A [facility]ICAL | | | | | | CENTER | | + + + + + + | PH (URINE) | 6.5 | 5.0 - 8.5 | [facility] | | | | | | A MEDICAL | | | | | | CENTER | | + + + + + + | PROTEIN, | Trace | Negative, Trace | [facility] | | | URINE | | | A MEDICAL | | | | | | CENTER | | + + + + + + | GLUCOSE | Negative | Negative | [facility] | | | (URINE) | | | A MEDICAL | | | | | | CENTER | | + + + + + + | KETONES | Negative | Negative | [facility] | | | | | | A MEDICAL | | | | | | CENTER | | + + + + + + | SPECIFIC | 1.009 | 1.005 - 1.030 | [facility] | | | GRAVITY | | | A MEDICAL | | | | | | CENTER | | + + + + + + | BILIRUBIN | Negative | Negative | [facility] | | | | | | A MEDICAL | | | | | | CENTER | | + + + + + + | BLOOD | 2+ (A) | Negative | [facility] | | | | | | A MEDICAL | | | | | | CENTER | | + + + + + + | NITRITES | Negative | Negative | [facility] | | | | | | A [facility]ICAL | | | | | | CENTER | | + + + + + + | LEUKOCYTE | Negative | Negative | [facility] | | | ESTERASE | | | A MEDICAL | | | | | | CENTER | | + + + + + + | UROBILINOGE | Negative | Negative, 1.0 | [facility] | | | N | | mg/dL | A MEDICAL | | | | | | CENTER | | + + + + + + | SOURCE | Clean catch | | [facility] | | | (URINALYSIS | | | A MEDICAL | | | ) | | | CENTER | | + + + + + + + + | Specimen | + + | Urine - Urine | | specimen collection, | | clean catch | | (procedure) | + + + + + + + | Performing | Address | City/State/Zipcode | Phone Number | | Organization | | | | + + + + + | [facility] | [address] | [place] [address] | [phone] | | MEDICAL CENTER | Streets | | | + + + + + PSA, TOTAL MONITORING (11/19/2017 11:37 AM PST) + + + + + + | Component | Value | Ref Range | Performed | Pathologist | | | | | At | Signature | + + + + + + | PSA TOTAL | 10.15 (H) | <4.00 ng/mL | [facility] | | | MONITORING | | | A MEDICAL | | | | | | CENTER | | + + + + + + + + | Specimen | + + | Blood - Blood | | (substance) | + + + + + + + | Performing | Address | City/State/Zipcode | Phone Number | | Organization | | | | + + + + + | [facility] | [address] | [place] [address] | [phone] | | MEDICAL CENTER | Streets | | | + + + + + documented in this encounter Visit Diagnoses + + | Diagnosis | + + | BPH with obstruction/lower urinary tract symptoms - Primary Hypertrophy of prostate | | with urinary obstruction and other lower urinary tract symptoms (LUTS) | + + | Pyuria Other nonspecific finding on examination of urine | + + documented in this encounter
--- OUTSIDE RECORDS SUMMARY | ~2019-09-22 | XMS | Encounter Summary ---
Demographics + + + | Address | [address] | | | [place] [address] | + + + | Home Phone [...] + | Organization | [facility] | | | and [...] Team Providers + +------+ + | Care Vascular Nurse Name | Role | Phone | + [...] + | 04/10/ | Telephone | [facility] | Dano Wong | Appointment | | 2014 | | PULMONARY [address] | MD [address] | | | | | [address] [place], | [place], [place] | | | | | [place] [address] | [address] | | | | | [phone] | | | +--------+ + + + [...]
--- OUTSIDE RECORDS SUMMARY | ~2019-09-22 | XMS | Encounter Summary ---
Demographics + + + | Address | [address] | | | [place] [address] | + + + | Home Phone | | + + + | Preferred Language | Unknown | + + + | Marital Status | | + + + | Zoroastrian Affiliation | ADV | + + + [...] Team Providers + +------+ + | Care Cash Accounting Clerk Name | Role | Phone | [...] | Transcriptions | + + | Interface, Office Auditor In - 09/17/2005 9:07 PM PST | | [id number] | | [id number] LINCOLN Zheng | | | | Date: 02/04/2005 | | | | Attending Surgeon: Kade Frazier M.D., Ph.D. | | | | Independent Crop Consultant(s): Waylon Boyce MD | | | | [...] of Otolaryngology/Head and Neck Surgery | | [facility]- | | FAX [phone] | | email - [email or web address] | | | | / RISHI | | [id number] / [id number] / [phone] / [phone] | | | | | | | | | | | | Electronically signed by Kade Frazier 02-22-2005 10:08:04 PM | + + documented in this encounter Visit Diagnoses Not on filedocumented in this encounter"
--- OUTSIDE RECORDS SUMMARY | ~2019-09-22 | XMS | Encounter Summary ---
Demographics + + + | Address | [address] | | | [place] [address] | + + + | Home Phone [...] + +------+ + | Care Blast Furnace Supervisor Name | Role | Phone | [...] Kerrie Vaugh[place], [place] | [place] [address] | | | | | [address] | [phone] | | | | | [phone] | | | +--------+ + + + [...]
--- OUTSIDE RECORDS SUMMARY | ~2019-09-22 | XMS | Encounter Summary ---
Demographics + + + | Address | [address] | | | [place] [address] | + + + | Home Phone | | + + + | Preferred Language | Unknown | + + + | Marital Status | | + + + | Taoist Affiliation | ADV | + + + [...] Team Providers + +------+ + | Care Train Clerk Name | Role | Phone | [...] as of this encounter Progress Notes Interface, Surgery Assistant In - 04/27/2005 11:34 AM PDT [id number] 02/03/2005 02/04/2005 [id number] LINCOLN Zheng [place] [address] [place] [address] or Department of Otolaryngology - PV01 February 05, 2005 Parviz Holcomb M.D. [facility] [address] [place] [address] RE: GURWINDER STARK MR #: [id number] Dear Dr. Holcomb: I operated Mr. Stark [...] Surgery Department of Otolaryngology/Head and Neck Surgery [facility]-01 FAX [phone] email - [email or web address] ROSI / [id number] / [id number] / [phone] / documented i n this encounter Plan of Treatment Not on filedocumented as of this encounter Visit Diagnoses Not on filedocumented in this encounter"
--- OUTSIDE RECORDS SUMMARY | ~2019-09-22 | XMS | Encounter Summary ---
Demographics + + + | Address | [address] | | | [place] [address] | + + + | Home Phone [...] Team Providers + +------+ + | Care Anesthesiologist/Physician Name | Role | Phone | + [...] | | [place], [place] | [place] [address] | | | | | [address] | [phone] | | | | | | | [...] | | | | electrochemiluminescent | | [place] | | | | immunoassay is the [...] Testing Performed at: [facility] [place] [address] CLIA: [id number] - [id number] | [facility] | | [place] [address] | - [place] | + + + + + + + + | Performing | Address | City/State/Zipcode | Phone Number | | Organization | | | | + + + + + | [facility] - | [address] | [place] | [phone] | | [place] | | | | + + + + + documented in this encounter Visit Diagnoses Not on filedocumented in this encounter"
--- OUTSIDE RECORDS SUMMARY | ~2019-09-22 | XMS | Encounter Summary ---
Demographics + + + | Address | [address] | | | [place] [address] | + + + | Home Phone | | + + + | Preferred Language | Unknown | + + + | Marital Status | | + + + | Anabaptism Affiliation | 1001 | + + + | Race | Unknown | + + + | Ethnic Group | Unknown | + + + Author + + + | Author | [facility] | | | and Jayjayana | + + + | Organization | [facility] | | | and [...] Team Providers + +------+ + | Care Gasket Supervisor Name | Role | Phone | [...] 2012 | | GASTROENTEROLOGY | [address], [place] | | | | | [address] [place] | [address] [place], [place] | | | | | [address] [place], [place] | [address] | | | | | [address] | | | | | | [phone] | | | +--------+ + + + [...]
--- OUTSIDE RECORDS SUMMARY | ~2019-09-22 | XMS | Encounter Summary ---
Demographics + + + | Address | [address] | | | [place] [address] | + + + | Home Phone | | + + + | Preferred Language | Unknown | + + + | Marital Status | | + + + | Christianity Affiliation | ADV | + + + [...] Team Providers + +------+ + | Care Improvement Coordinator Name | Role | Phone | + [...] chart review | | | | [place], [place] | [place] [address] | and abstract) | | | | [address] | [phone] | | | | | [phone] | | | +--------+ + + + [...] is a 80 y.o. year-old male from [place], [place]. He is to my Aunt Lisa. [...] Plan notes found for this encounter. This njnl-of-mnic visit lasted over minutes and % of this time was spent in investment counselor ing. documented in this e ncounter Plan of Treatment Not on filedocumented as of this encounter Visit Diagnoses Not on filedocumented in this encounter"
--- OUTSIDE RECORDS SUMMARY | ~2019-09-22 | XMS | Clinical Summary ---
Demographics + + + | Address | [address] | | | [place] [address] | + + + | Home Phone | | + + + | Preferred Language | Unknown | + + + | Marital Status | | + + + | Cheondoism Affiliation | Unknown | + + + | Race | Unknown | + + + | Ethnic Group | Unknown | + + + Author + + + | Author | [facility] (Historical as of | | | 05-14-19) | + + + | Organization | [facility] (Historical as of | | | 05-14-19) [...] Team Providers + +------+ + | Care Pulp Grinder Name | Role | Phone | [...] +------+-------+ + | MEDICARE | MEDICA | [id number] | | | [address] | | | RE | | | | [place], [place] [address] | | | IP-OP | | | | | + +--------+ +------+-------+ + | [facility] | UNITED | [id number] | | | | | | | [...] | 1936 | [phone] | [place] [address] | | | almaz | | | [phone] | | + +--------+ +--------+ + +"
--- OUTSIDE RECORDS SUMMARY | ~2019-09-22 | XMS | Encounter Summary ---
Demographics + + + | Address | [address] | | | [place] [address] | + + + | Home Phone | | + + + | Preferred Language | Unknown | + + + | Marital Status | | + + + | Rastafarian Affiliation | ADV | + + + | Race | White | + + + | Ethnic Group | Not or | + + + Author + + + | Author | [facility] | + + + | Organization | [facility] | + + + [...] Team Providers + +------+ + | Care Child Welfare Counselor Name | Role | Phone | + [...] St | | | | | [place], [place] | [place] [address] | | | | | [address] | [phone] | | | | | [phone] | | | +--------+--------+ + + + [...]
--- OUTSIDE RECORDS SUMMARY | ~2019-09-22 | XMS | Encounter Summary ---
Demographics + + + | Address | [address] | | | [place] [address] | + + + | Home Phone [...] Team Providers + +------+ + | Care Head Of Business Development Name | Role | Phone | + [...] | | | | | MEDICINE | [address] | | | | | | [address] | Phone: | | | | | | [address] | [phone] | | | | | | [place], | Fax: | | | | | | [place] [address] | [phone] | | | | | | Phone: | | | | | | | [phone] | | | | | | | Fax: | | | | | | | [phone] | | +--------+--------+ + + + + Encounter Details +--------+---------+ + + + | Date | Type | Department | Care Team | Description | +--------+---------+ + + + | 11/19/ | Office | [facility] | Estuardo Lindo, | BPH with | | 2018 | Visit | [address] | [address] | obstruction/lower | | | | [place], [place] | [place] [address] | urinary tract | | | | [address] | [phone] | symptoms (Primary | | | | [phone] | | Dx); Pyuria | +--------+---------+ + [...] culture Obtain confirmatory PSA this morning at [facility] Restart finasteride (prescription issued) Repeat PSA in 3 months (at [facility]) We will plan to follow up with [...] for you. Please contac t me (through "[employer]" or our office phone) if I can be of any assistance before our next v isit. With best wishes, Esutardo Lindo MD, FACS documented in this encounter [...] The patient does not have insomnia. A Guide Rail Cleaner was offered to the patient and declined. AUA SYMPTOMS Total Symptom Score:: 2 Estuardo Pollock MD - 11/19/2017 10:00 AM PST IDENTIFICATION: Jose is a 81 y.o. year-old male from [place], [place]. His primary care provider is Sandrita [...] not authorized 10/14/2017-PSA, total-9.83, free-11 percent BPH/HEMATURIA 6519-TWPC-61 grams BPH Had subsequent difficulty with recurrent [...] right lateral shaft base-su ged expectantly PYURIA 10/14/20170818-FJ-QTCi-5 ([facility]) PAST HISTORY: Medical: Past Medical History: [...] culture Obtain confirmatory PSA this morning at [facility] Restart finasteride (prescription issued) Repeat PSA in 3 months (at [facility]) We will plan to follow up with additional recommendations after the repeat PSA. I am go ing to ask Pankaj to call me 2 weeks after he has had his PSA checked-if he has not heard from me before then. Return in 6 months with PSA prior to visit ([facility]) This bibc-zs-afng visit lasted over 45 minutes and 90% of this time was spent in counseling . This record was dictated and transcribed (using BestBoy Keyboard Direct Speech Recognition Software) in the patient's [...] + + | [facility] | [address] | [place] [address] | [phone] | | MEDICAL CENTER | Streets | | | + + + + + PSA, TOTAL MONITORING (11/19/2017 11:37 AM PST) + + + + + + | Component | Value | Ref Range | Performed | Pathologist | | | | | At | Signature | + + + + + + | PSA TOTAL | 10.15 (H) | <4.00 ng/mL | [facility] | | | MONITORING | | | [...] | [address] | [place] [address] | [phone] | | MEDICAL CENTER | Streets | [...]
--- OUTSIDE RECORDS SUMMARY | ~2019-09-22 | XMS | Encounter Summary ---
Demographics + + + | Address | [address] | | | [place] [address] | + + + | Home Phone | | + + + | Preferred Language | Unknown | + + + | Marital Status | | + + + | Oriental Orthodox Affiliation | 1001 | + + + | Race | Unknown | + + + | Ethnic Group | Unknown | + + + Author + + + | Author | [facility] | | | and [place]jay[place] | + + + | Organization | [facility] | | | and [place] | [...] Team Providers + +------+ + | Care Capital Project Engineer Name | Role | Phone | [...] [address] | | | | | [place] [place], | [place], [place] | | | | | [place] [address] | [address] | | | | | [phone] | | | +--------+--------+ + + + [...]
--- OUTSIDE RECORDS SUMMARY | ~2019-09-22 | XMS | Encounter Summary ---
Demographics + + + | Address | [address] | | | [place] [address] | + + + | Home Phone | | + + + | Preferred Language | Unknown | + + + | Marital Status | | + + + | Scientologist Affiliation | 1001 | + + + | Race | Unknown | + + + | Ethnic Group | Unknown | + + + Author + + + | Author | [facility] | | | and [place]jay[place] | + + + | Organization | [facility] | | | and [...] Team Providers + +------+ + | Care Falsework Builder Name | Role | Phone | [...] + + | 02/07/ | Office | [facility] | Dano Wong | BRONCHIECTASIS | | 2013 | Visit | PULMONARY [address] | [place] [address] [address] | (Primary Dx); | | | | [place], | [place], [place] | [place], | | | | [place] [address] | [address] | OBSTRUCTIVE CHRONIC; | | | | [phone] | | Elevated rheumatoid | | | [...] original. Dano Wong MD [facility] [address] [place] [address] 02/07/2014 Rachel Monk 1935 History Rachel Monk [...] upper airwa y congestion. Dr. [place] in [place] had performed to sinus surgeries. In late 2003 he deve loped worsening cough, recurrent respiratory infections, and he began having intermittent ni ght sweats and raising very thick mucus. He also had a large amount of ongoing sinus congest ion and postnasal drip. 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 He also had a [...] CAPS Take by mouth 2 times daily. [place]-3 Fatty Acids (OMEGA 3 PO) Take 450 [...] before he saw me. His sleep study [facility] October 15, 2004 showed an apnea hypopnea [...] may be present due to inadvertent computerized waste management recycling technician errors. If there are any ques tions regarding the waste management recycling technician, please contact our office. documented in th [...]
--- OUTSIDE RECORDS SUMMARY | ~2019-09-22 | XMS | Encounter Summary ---
Demographics + + + | Address | [address] | | | [place] [address] | + + + | Home Phone | | + + + | Preferred Language | Unknown | + + + | Marital Status | | + + + | Anglican Affiliation | ADV | + + + | Race | White | + + + | Ethnic Group | Not or | + + + Author + + + | Author | [facility] | + + + | Organization | [facility] | + + + [...] Team Providers + +------+ + | Care Rope Coiling Machine Operator Name | Role | Phone [...] | | [place], [place] | [place] [address] | | | | | [address] | [phone] | | | | | | | [...] Testing Performed at: [facility] [place] [address] CLIA: [id number] - 2580 | [facility] | | [place] [address] | - [place] | + + + + + + + + | Performing | Address | City/State/Zipcode | Phone Number | | Organization | | | | + + + + + | [facility] - | [address] | [place] | [phone] | | [place] | | | | + + + + + documented in this encounter Visit Diagnoses Not on filedocumented in this encounter"
--- OUTSIDE RECORDS SUMMARY | ~2019-09-22 | XMS | Encounter Summary ---
Demographics + + + | Address | [address] | | | [place] [address] | + + + | Home Phone | | + + + | Preferred Language | Unknown | + + + | Marital Status | | + + + | Methodist Affiliation | 1001 | + + + | Race | Unknown | + + + | Ethnic Group | Unknown | + + + Author + + + | Author | [facility] | | | and [place]jay[place] | + + + | Organization | [facility] | | | and [place] [...] Team Providers + +------+ + | Care Insurance Rater Name | Role | Phone | + [...] [address] | | | | | [employer] [place], | [place], [place] | | | | | [place] [address] | [address] | | | | | [phone] | | | +--------+--------+ + + + [...]
--- OUTSIDE RECORDS SUMMARY | ~2019-09-22 | XMS | Encounter Summary ---
Demographics + + + | Address | [address] | | | [place] [address] | + + + | Home Phone | | + + + | Preferred Language | Unknown | + + + | Marital Status | | + + + | Church Affiliation | 1001 | + + + | Race | Unknown | + + + | Ethnic Group | Unknown | + + + Author + + + | Author | [facility] | | | and [place]jay[place] | + + + | Organization | [facility] | | | and [...] Team Providers + +------+ + | Care Gimp Tacker Name | Role | Phone | + [...] + + | 04/27/ | Office | [facility] | Jeffrey Mejia, | BRONCHIECTASIS | | 2015 | Visit | PULMONARY [address] | MD [address] | (Primary Dx); | | | | [address] [place], | [place], [place] | 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 It should not be given to adults who: Are Have weakened immune systems Have egg allergies Will be in close contact with someone with a weakened immune system Have taken antiviral medication in the past 2 days 1640-5176 The [employer] Contact[address] [place] [address]. All righ ts reserved. This information is not intended as a substitute for professional medical care. Always follow your healthcare professional's instructions. documented in this encounter Progress Notes Jeffrey Mejia MD - 04/27/2015 11:33 AM PDTFormatting of this note might be different f rom the original. Pulmonary Follow Up 04/27/2015 [facility] Rachel Monk is a 79 y.o. [...] times daily ., Disp: , Rfl: ; [place]-3 Fatty Acids (OMEGA 3 PO), Take 450 [...]
--- OUTSIDE RECORDS SUMMARY | ~2019-09-22 | XMS | Encounter Summary ---
Demographics + + + | Address | [address] | | | [place] [address] | + + + | Home Phone | | + + + | Preferred Language | Unknown | + + + | Marital Status | | + + + | Yarsani Affiliation | 1001 | + + + | Race | Unknown | + + + | Ethnic Group | Unknown | + + + Author + + + | Author | [facility] | | | and [place] | + + + | Organization | [facility] | | | and [place] | + + + | Address | Unknown | + + + | Phone | Unavailable | + + + Support + + +---------+ + | Name | Relationship | Address | Phone | + + +---------+ + | Lisa Sherwood | ECON | Unknown | | + + +---------+ + Care Team Providers + +------+ + | Care Kraft Digester Operator Name | Role | Phone | + +------+ + PCP | Unavailable | + +------+ + Encounter Details +--------+ + + + + | Date | Type | Department | Care Team | Description | +--------+ + + + + | 03/16/ | Hospital | [facility] | | | | 2000 | Encounter | MED CTR GENERIC OP | | | | | | CONV DEPT [address] | | | | | | [place], | | | | | | [place] [address] | | | | | | [phone] | | | +--------+ + + + [...]
--- OUTSIDE RECORDS SUMMARY | ~2019-09-22 | XMS | Encounter Summary ---
Demographics + + + | Address | [address] | | | [place] [address] | + + + | Home Phone | | + + + | Preferred Language | Unknown | + + + | Marital Status | | + + + | Gnosticist Affiliation | ADV | + + + [...] | + + + + + | Daina Muñoz | ECON | [place] | | + + + + + Care Team Providers + +------+ + | Care Interior Design Assistant Name | Role | Phone | + +------+ + | Chava Ibanez MD | PCP | | + +------+ + Encounter Details +--------+--------+ + + + | Date | Type | Department | Care Team | Description | +--------+--------+ + + + | 03/09/ | Travel | | | | | 2019 | | | | | +--------+--------+ + + + [...]
--- OUTSIDE RECORDS SUMMARY | ~2019-09-22 | XMS | Encounter Summary ---
Demographics + + + | Address | [address] | | | [place] [address] | + + + | Home Phone [...] + + + | Author | [facility] | + + + | Organization | [facility] | + + + [...] Team Providers + +------+ + | Care Roller Mill Tender Name | Role | Phone | + +------+ + | No Pcp Per Patient | PCP | Unavailable | + +------+ + Encounter Details +--------+------+ + + + | Date | Type | Department | Care Team | Description | +--------+------+ + + + | 11/19/ | Lab | Laboratory at | | BPH with | | 2017 | | [facility] | | obstruction/lower | | | | Center [address] | | urinary tract | | | | [place] | | symptoms | | | | [address] | | | +--------+------+ + + + Social History + +-------+ [...] + | PSA, TOTAL | Routin | 11/19/2017 | BPH with | Results for this | | MONITORING | e | 11:37 AM | obstruction/lower | procedure are in the | | | | PST | urinary tract | results section. | | | | | symptoms | | + +--------+ + + + documented in this encounter Results PSA, TOTAL MONITORING (11/19/2017 11:37 AM PST) + + + + + + | Component | Value | Ref Range | Performed | Pathologist | | | | | At | Signature | + + + + + + | PSA TOTAL | 10.15 (H) | <4.00 ng/mL | [facility] | | | MONITORING | | | [...] | [facility] | [address] | [place] [address] | [phone] | | [facility] | [facility] | | | + + + + + documented in this encounter Visit Diagnoses + + | Diagnosis | + + | BPH with obstruction/lower urinary tract symptoms Hypertrophy of 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
--- OUTSIDE RECORDS SUMMARY | ~2019-09-22 | XMS | Encounter Summary ---
Demographics + + + | Address | [address] | | | [place] [address] | + + + | Home Phone | | + + + | Preferred Language | Unknown | + + + | Marital Status | | + + + | Quaker Affiliation | ADV | + + + | Race | White | + + + | Ethnic Group | Not or | + + + Author + + + | Author | [facility] | + + + | Organization | [facility] | + + + [...] Providers + +------+ + | Care Manager Lsw Name | Role | Phone | + [...] St | | | | | [place], [place] | [place] [address] | | | | | [address] | [phone] | | | | | [phone] | | | +--------+--------+ + + + [...]
--- OUTSIDE RECORDS SUMMARY | ~2019-09-22 | XMS | Encounter Summary ---
Demographics + + + | Address | [address] | | | [place] [address] | + + + | Home Phone | | + + + | Preferred Language | Unknown | + + + | Marital Status | | + + + | Quaker Affiliation | ADV | + + + | Race | White | + + + | Ethnic Group | Not or | + + + Author + + + | Author | [facility] | + + + | Organization | [facility] | + + + | Address [...] Team Providers + +------+ + | Care 3Rd Mate Name | Role | Phone | + [...] [id number] | | | | | | [place], [place] | | | | | | [address] | | | | | | [phone] | | | +--------+ + + + [...] | + + + + + | [facility] | [address] | [place] [address] | | | PATHOLOGY | [address] | | | + + + + + | [facility] DEPARTMENT OF | [address] | [place] [address] | | | PATHOLOGY | [address] [...] | + + + + + | [facility] | [address] | [place] [address] | | | PATHOLOGY | [address] | | | + + + + + | [facility] | [address] | [place] [address] | | | PATHOLOGY | [address] | | | + + + + + documented in this encounter Visit Diagnoses Not on filedocumented in this encounter"
--- OUTSIDE RECORDS SUMMARY | ~2019-09-22 | XMS | Encounter Summary ---
Demographics + + + | Address | [address] | | | [place] [address] | + + + | Home Phone | | + + + | Preferred Language | Unknown | + + + | Marital Status | | + + + | Methodist Affiliation | 1001 | + + + | Race | Unknown | + + + | Ethnic Group | Unknown | + + + Author + + + | Author | [facility] | | | and [place]jay[place] | + + + | Organization | [facility] | | | and [place] [...] Team Providers + +------+ + | Care Fuel Handler Name | Role | Phone | + +------+ + PCP | Unavailable | + +------+ + Encounter Details +--------+ + + + + | Date | Type | Department | Care Team | Description | +--------+ + + + + | 09/30/ | Hospital | [facility] | Dano Wong | | | 2007 | Encounter | MED CTR XRAY [address] | [place] [address] [address] | | | | | [address] | [place], [place] | | | | | [place] [address] | [address] | | | | | [phone] | | | +--------+ + + + [...]
--- OUTSIDE RECORDS SUMMARY | ~2019-09-22 | XMS | Encounter Summary ---
Demographics + + + | Address | [address] | | | [place] [address] | + + + | Home Phone | | + + + | Preferred Language | Unknown | + + + | Marital Status | | + + + | Jehovah'S Witness Affiliation | ADV | + + + [...] Team Providers + +------+ + | Care Communications Professor Name | Role | Phone | + [...] as of this encounter Progress Notes Interface, Acid Bleacher In - 04/27/2005 11:34 AM PDT [id number] [facility] Date: 02/06/2005 Clinic: Mr. Monk is seen back for drain removal. The wound looks good. Facial nerve functions normally. He has the expected anesthesia. See him back in 6 weeks for final check. They will call me for the pathology tomorrow. Kade Frazier M.D., Ph.D. Professor - Head and Neck Surgery Department of Otolaryngology/Head and Neck Surgery [facility] PV-01 FAX [phone] email - [email or web address] / [id number] / [id number] / [phone] / [phone] Electronically signed by Kade Frazier 02-22-2005 10:08:10 PM documented i n this encounter Plan of Treatment Not on filedocumented as of this encounter Visit Diagnoses Not on filedocumented in this encounter"
--- OUTSIDE RECORDS SUMMARY | ~2019-09-22 | XMS | Encounter Summary ---
Demographics + + + | Address | [address] | | | [place] [address] | + + + | Home Phone | | + + + | Preferred Language | Unknown | + + + | Marital Status | | + + + | Denominational Affiliation | 1001 | + + + | Race | Unknown | + + + | Ethnic Group | Unknown | + + + Author + + + | Author | [facility] | | | and [place]jay[place] | + + + | Organization | [facility] | | | and [place] [...] Team Providers + +------+ + | Care Sr. Media Manager Name | Role | Phone | [...] [address] | | | | | [place], | [place], [place] | | | | | [place] [address] | [address] | | | | | [phone] | | | +--------+--------+ + + + [...]
--- OUTSIDE RECORDS SUMMARY | ~2019-09-22 | XMS | Encounter Summary ---
Demographics + + + | Address | [address] | | | [place] [address] | + + + | Home Phone | | + + + | Preferred Language | Unknown | + + + | Marital Status | | + + + | Pentecostal Affiliation | 1001 | + + + | Race | Unknown | + + + | Ethnic Group | Unknown | + + + Author + + + | Author | [facility] | | | and [place] | + + + | Organization | [facility] | | [...] + +------+ + | Care Refinery Operator Helper Name | Role | Phone [...] | 12/01/ | Office | [facility] | Dano Wong | Bronchiectasis (HCC) | | 2012 | Visit | PULMONARY [address] | [place] [address] [address] | (Primary Dx); | | | | [place], | [place], [place] | [place], | | | | [place] [address] | [address] | OBSTRUCTIVE CHRONIC; | | | | [phone] | | Elevated rheumatoid | | | | | | factor; Sjogren's | | | | | | syndrome (HCC); | | | | | | Pulmonary fibrosis, | | | | | | postinflammatory | | | | | | ([facility]); Obstructive | | | | | | [...] original. Dano Wong MD [facility] [address] [place] [address] 12/01/2012 Rachel Monk 1935 History: Rachel Monk is a 76 y.o. male followed for several respiratory problems. Our ongoing c are is primarily focused on his bronchiectasis. Before I first saw him in September 2004, he had long-standing problems with upper airway congestion. Dr. [place] in [place] had perfo rmed to sinus surgeries. 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 We did obtain a [facility] x-ray at his last visit [...] 40 mEq by mouth 3 times daily. [place]-3 Fatty Acids (OMEGA 3 PO) Take 1,200 [...]
--- OUTSIDE RECORDS SUMMARY | ~2019-09-22 | XMS | Encounter Summary ---
Demographics + + + | Address | [address] | | | [place] [address] | + + + | Home Phone [...] Team Providers + +------+ + | Care Desk Editor Name | Role | Phone | + [...]
--- OUTSIDE RECORDS SUMMARY | ~2019-09-22 | XMS | Encounter Summary ---
Demographics + + + | Address | [address] | | | [place] [address] | + + + | Home Phone | | + + + | Preferred Language | Unknown | + + + | Marital Status | | + + + | Buddhist Affiliation | ADV | + + + | Race | White | + + + | Ethnic Group | Not or | + + + Author + + + | Author | [facility] | + + + | Organization | [facility] | + + + [...] Team Providers + +------+ + | Care Bricklayer Apprentice Name | Role | Phone | + +------+ + | No Pcp Per Patient | PCP | Unavailable | + +------+ + Encounter Details +--------+------+ + + + | Date | Type | Department | Care Team | Description | +--------+------+ + + + | 11/19/ | Lab | Laboratory at | | BPH with | | 2017 | | [facility] | | obstruction/lower | | | | Center [address] | | urinary tract | | | | [place] | | symptoms | | | | [address] | | | +--------+------+ + + + [...] | [facility] | [address] | [place] [address] | [phone] | | [facility] | [facility] | | | + + + + + documented in this encounter Visit Diagnoses + + | Diagnosis | + + | BPH with obstruction/lower urinary tract symptoms Hypertrophy of 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
--- OUTSIDE RECORDS SUMMARY | ~2019-09-22 | XMS | Encounter Summary ---
Demographics + + + | Address | [address] | | | [place] [address] | + + + | Home Phone [...] Team Providers + +------+ + | Care Pastry Cook Helper Name | Role | Phone | [...] St | | | | | [place], [place] | [place] [address] | | | | | [address] | [phone] | | | | | [phone] | | | +--------+ + + + [...]
--- OUTSIDE RECORDS SUMMARY | ~2019-09-22 | XMS | Encounter Summary ---
Demographics + + + | Address | [address] | | | [place] [address] | + + + | Home Phone | | + + + | Preferred Language | Unknown | + + + | Marital Status | | + + + | Restoration Affiliation | ADV | + + + | Race | White | + + + | Ethnic Group | Not or | + + + Author + + + | Author | [facility] | + + + | Organization | [facility] | + + + | [...] Team Providers + +------+ + | Care Wireless Network Engineer Name | Role | Phone | [...] | | [place], [place] | [place] [address] | | | | | [address] | [phone] | | | | | | | [...] week with yaya moya sent to me ([facility]). I think that the kidney function may [...] Testing Performed at: [facility] [place] [address] CLIA: [id number] - [address] | [facility] | | [place] [address] | - [place] | + + + + + + + + | Performing | Address | City/State/Zipcode | Phone Number | | Organization | | | | + + + + + | [facility] - | [address], [place] | [phone] | | [place] | | | | + + + + + documented in this encounter Visit Diagnoses Not on filedocumented in this encounter"
--- OUTSIDE RECORDS SUMMARY | ~2019-09-22 | XMS | Encounter Summary ---
Demographics + + + | Address | [address] | | | [place] [address] | + + + | Home Phone | | + + + | Preferred Language | Unknown | + + + | Marital Status | | + + + | Taoist Affiliation | 1001 | + + + | Race | Unknown | + + + | Ethnic Group | Unknown | + + + Author + + + | Author | [facility] | | | and Jayjayana | + + + | Organization | [facility] | | | and [...] Team Providers + +------+ + | Care Heel Attacher Name | Role | Phone | + [...] | | uncomplicate | [place] Al | [place] [address] | | | | | d (HCC) | [place], | Phone: | | | | | Procedures | [place] | [phone] | | | | | F/U APPT | [address] | Fax: | | | | | ERLINDA MEJIA | Phone: | [phone] | | | | | 04/22/19 | [phone] | | | | | | | Fax: | | | | | | | [phone] | | + +--------+ + + + [...] | acute exacerbation | | | | [place], | [place], [place] | ([facility]); | | | | [place] [address] | [id number] | Bronchiectasis | | | | [phone] | | without complication | | | | | | ([facility]) | +--------+---------+ + + + Social History [...] stop your medicine early. Talk to your public relations professional regarding the use of this medicine in children. While this drug m ay be prescribed for children as young as 6 months for selected conditions, precautions do a pply. What side effects may I notice from receiving this medicine? Side effects that you should report to your doctor or health medicare coordinator as soon as p ossible: allergic reactions [...] attention (report to your doctor or health medicare coordinator if they continue or are bothersome): diarrhea [...] rom the original. Pulmonary Follow Up 04/22/2019 [facility] Abhijitmerle Bigg Monk is a 83 y.o. [...]
--- OUTSIDE RECORDS SUMMARY | ~2019-09-22 | XMS | Encounter Summary ---
Demographics + + + | Address | [address] | | | [place] [address] | + + + | Home Phone [...] Team Providers + +------+ + | Care Plan Examiner Name | Role | Phone | + [...] | better) | | | | [place], [place] | [place] [address] | | | | | [address] | [phone] | | | | | [phone] | | | +--------+ + + + [...]
[~2019-09-22 06:55] MED LIST changes: +K-TAB ER20 MEQ PO; +KEFLEX500 MG PO; +METOPROLOL SUC100 MG PO; +NORCO 5-325 TA1 EACH PO
[2019-09-22] MEDS ORDERED: CLONIDINE HCL0.1 M1 PO (07:06)
[2019-09-22] MEDS ORDERED: LOSARTAN POTAS100 MG PO (07:06)
[2019-09-22] MEDS ORDERED: DOXYCYCLINE HY100 MG PO (07:08)
[2019-09-22] MEDS ORDERED: NEXIUM2.5 MG PO (07:09)
== END 2019-09-22 07:45 | disposition home or self-care (01) ==
LOC: ED 06:55
DX: J06.9 Acute upper respiratory infection, unspecified (principal); H69.81 Other specified disorders of Eustachian tube, right ear; I10 Essential (primary) hypertension; K21.9 Gastro-esophageal reflux disease without esophagitis; Z79.899 Other long term (current) drug therapy
CPT/HCPCS: 99283

== ENCOUNTER 2019-10-24 07:45 | Emergency (ER) | payer MEDICARE ==
[~2019-10-24] VITALS: Ht 180.3 cm; Wt 91.6 kg
[~2019-10-24 07:45] MED LIST changes: +CLONIDINE HCL0.1 M1 PO; +DOXYCYCLINE HY100 MG PO; +LOSARTAN POTAS100 MG PO; +NEXIUM2.5 MG PO
== END 2019-10-24 09:44 | disposition home or self-care (01) ==
LOC: ED 07:45
DX: S46.911A Strain of unspecified muscle, fascia and tendon at shoulder and upper arm level, right arm, initial encounter (principal); S86.912A Strain of unspecified muscle(s) and tendon(s) at lower leg level, left leg, initial encounter; X58.XXXA Exposure to other specified factors, initial encounter; I10 Essential (primary) hypertension; K21.9 Gastro-esophageal reflux disease without esophagitis; Z88.2 Allergy status to sulfonamides; Z79.899 Other long term (current) drug therapy
CPT/HCPCS: 73030; 73560; 99283; J1100

== ENCOUNTER 2020-09-15 09:45 | Inpatient (IN) | payer MEDICARE ==
[~2020-09-15] VITALS: Ht 180.3 cm; Wt 93.4 kg
[~2020-09-15 09:45] MED LIST changes: -CLONIDINE HCL0.1 M1 PO; +CLONIDINE HCL0.1 MG PO; +DOXYCYCLINE HY100 M3 PO; -DOXYCYCLINE HY100 MG PO
[2020-09-15] MEDS ORDERED: PREDNISOLONE ACE5 ML OU (09:53)
[2020-09-15] MEDS ORDERED: HYDROCHLOROTHIA25 MG PO (09:54)
[2020-09-15] MEDS ORDERED: OCUFLOX5 ML OU (09:54)
[2020-09-15] MEDS ORDERED: TERAZOSIN HCL1 MG PO (09:55)
[2020-09-15] MEDS ORDERED: CELECOXIB200 MG PO (09:55)
[2020-09-15] MEDS ORDERED: METFORMIN HCL500 M1 PO (09:55)
[2020-09-15] MEDS ORDERED: DESMOPRESSIN ACE5 ML NAS (09:57)
[2020-09-15] MEDS ORDERED: DILTIAZEM 24HR240 M1 PO (09:58)
[2020-09-15] MEDS ORDERED: LEVOTHYROXINE175 MCG PO (09:59)
--- NOTE | 2020-09-15 13:44 | NUR ---
PT ARRIVED TO THE FLOOR VIA STRETCHER FROM ER. PT ALERT AND ORIENTED, A BIT DROWSY. PT STATES THAT HE HAS NO CONCERNS AT THIS TIME.
--- NOTE | 2020-09-15 14:22 | NUR ---
CALL TO DR. LOCKHART TO OKAY THE RESUMPTION OF PREDNISOLONE AND CEFOXIN EYE DROPS.
[2020-09-15] MEDS ORDERED: PULMICORT FLE180 MCG INH (15:37)
--- NOTE | 2020-09-15 17:00 | NUR ---
THIS RN IN PTS ROOM TO GIVE PT HIS EYEDROPS. PT STATED THAT HE NEEDED SOME ASSISTANCE DUE TO HIM NOT HAVING A MIRROR EASILY ACCESSIBLE.
--- NOTE | 2020-09-15 18:03 | NUR ---
PATIENT SITTING UP IN BED RESTING. FRESH WATER GIVEN. CALL LIGHT IN REACH. NO FURTHER NEEDS AT THIS TIME.
--- NOTE | 2020-09-15 19:05 | NUR ---
PT LYING IN BED. SHIFT REPORT RECIEVED BY RN. WHITE BOARD CLEARED. PT STATES "FEELS LIKE IM FALLING AND LIGHTHEADED. RN LOWERED THE HEAD OF THE BED. PT STATED THAT HE FELT A LITTLE BETTER.
--- NOTE | 2020-09-15 21:37 | NUR ---
PADDLE DYEING MACHINE OPERATOR ROUNDING NOTE. PT IV PUMP ALARMING, NEW IV FLUIDS HUNG. PT REQUESTS TO GET UP AND GO TO THE BATHROOM. C/O LAST TIME HE ATTEMPTED TO GET UP, FEELING DIZZY. EDUCATION PROVIDED. PT INSTRUCTED WE WILL WALK SLOWLY TO THE BATHROOM. PT STATES UNDERSTANDING. TO BATHROOM AND BACK TO BED WITH 1PA. WATER REFILLED. PT DENIES FURTHER NEEDS AT THIS TIME. CALL LIGHT WITHIN REACH.
--- NOTE | 2020-09-15 21:39 | EKG ---
[facility] [address] [place] [address] Signed Sinus bradycardia with 1st degree AV block Septal infarct , age undetermined Abnormal ECG When compared with ECG of 05-APR-2019 09:00, premature ventricular complexes are no longer present DC interval has increased Septal infarct is now present Confirmed by KRYSTIAN LOCKHART MD ([id number]) on 09/15/2020 9:39:05 PM Electronically Signed By: KRYSTIAN LOCKHART MD 09/15/20 2139 PATIENT NAME: GURWINDER STARK Electrocardiogram DATE OF : 35 PHYSICIAN: KRYSTIAN LOCKHART MD REPORT #: [id number] REPORT IS CONFIDENTIAL AND NOT TO BE RELEASED WITHOUT AUTHORIZATION
--- NOTE | 2020-09-15 22:26 | NUR ---
PT LYING IN BED. ASSESSMENT COMPLETE. VS STABLE AND I AND O'S DONE. SCHEDULED MEDS GIVEN. DENIES PAIN AT THIS TIME. INDEPENDENT STANDY TO THE BATHROOM, TOLERATED WELL. NO S/S OF SOB. UNABLE TO AUSCULTATE O2 SAT 92% 6L NC. CALL LIGHT IN REACH. NO FURTHER NEEDS.
--- NOTE | 2020-09-15 22:26 | NUR ---
PT LYING IN BED. ASSESSMENT COMPLETE. SCHEDULED MEDS GIVEN. PT STATES THAT HE DOES NOT FEEL LIGHT HEADED AT THIS TIME. PT DENIES PAIN. DRESSING CHANGE COMPLETE ON R EAR. NO DRAINAGE NOTED. WILL CONTINUE TO MONITOR
--- NOTE | 2020-09-15 23:26 | NUR ---
PT LYING IN BED. ASSESSMENT COMPLETE. I AND O'S COMPLETE. PT DENIES PAIN AND STATES THAT HE DOES NOT FEEL LIGHTHEADED. IV SALINE LOCKED. SCHEDULED MEDS GIVEN.
--- NOTE | 2020-09-16 01:08 | NUR ---
PT LYING IN BED. EYES CLOSED. NO S/S OF SOB. RR WNL WITH UNLABORED BREATHING. CALL LIGHT IN REACH.
--- NOTE | 2020-09-16 02:01 | NUR ---
CALL LIGHT ANSWERED. PT UP TO BR WITH SBA TO VOID AND ATTEMPT BM WITH NO RESULTS. GAIT UNSTEADY. PT C/O SLIGHT DIZZINESS. FWW PROVIDED. BACK TO BED, MARIAMA WELL. LAB IN ROOM TO DRAW BLOOD. CALL LIGHT IN REACH.
--- NOTE | 2020-09-16 03:48 | NUR ---
ROUNDED PT LYING IN BED. EYES CLOSED. RR WNL WITH UNLABORED BREATHING. CALL LIGHT IN REACH.
--- NOTE | 2020-09-16 03:58 | NUR ---
PT 1P STANDBY TO THE BATHROOM. TOLERATED WELL. DENIES LIGHTHEADEDNESS. REPOSITIONED PT IN BED. NO S/S OF SOB. CALL LIGHT IN REACH.
--- NOTE | 2020-09-16 07:33 | NUR ---
0705: Pt resting in his bed with call dooley within reach. Report received from Cintia CHRIS and Maureen CHRIS.
--- NOTE | 2020-09-16 09:11 | NUR ---
PATIENT IN CHAIR RESTING. WARM WASHCLOTH GIVEN. FRESH WATER GIVNE. BLOOD PRESSURE HIGH, RN NOTIFIED. CALL LIGHT IN REACH. NO FURTHER NEEDS AT THIS TIME.
--- NOTE | 2020-09-16 10:04 | NUR ---
0830: PT ASSISTED TO HIS CHAIR BY TINA CHRIS. PT STEADY ON HIS FEET AND MOVED WELL WITH THE USE OF HIS FWW AND A 1PA SBA. 1000: PT RESTING IN HIS CHAIR WITH HIS CALL NARVAEZ WITHIN REACH. HE DENIES ANY PAIN OTHER THAT "DRY EYES", ORDERED EYE GTTS GIVEN ORDERED AND HE STATES THAT IS HELPING. PT DENIES ANY SOB AND STATES THAT HIS DIZZY FEELINGS IS GREATLY IMPROVED SINCE HIS ADMIT. PT REMINDED TO CALL FOR ASSIST BEFORE GETTING OUT HIS HIS CHAIR, HE STATES UNDERSTANDING. SEE ASSESSMENT.
--- NOTE | 2020-09-16 10:09 | NUR ---
K+ 2.5, NEW ORDERS RECIEVED, SEE EMAR. BP ELEVATED, SCHEDULED MEDICATIONS GIVEN, WILL CONTINUE TO MONITOR.
--- NOTE | 2020-09-16 12:58 | NUR ---
PT RESTING IN HIS CHAIR, HE DENIES ANY PROBLEMS OTHER THAN THAT HIS EYES FEEL DRY. PT STATES THIS IS NORMAL FOR HIM AND THAT HE USES HIS EYE DROPS FOR IT. ORDERED EYE GTTS GIVEN AT THIS TIME. PT DENIES ANY OTHER PROBLEMS AT THIS TIME. SEE ASSESSMENT.
--- NOTE | 2020-09-16 14:06 | NUR ---
PATIENT UP TO BATHROOM AND BACK TO BED, 1PA FWW. CALL LIGHT IN REACH. NO FURTHER NEEDS AT THIS TIME.
--- NOTE | 2020-09-16 15:52 | NUR ---
PT COMPLAINS OF DRY EYES AND WAS GIVEN SOME SALINE PINK FISH GTTS FOR HIS EYES. PT WAS HELPED WITH PUTTING THEM IN HIS EYES AND HE STATES THAT THEY HELP. ADDITIONAL GTTS LEFT AT THE BEDSIDE.
--- NOTE | 2020-09-16 17:35 | NUR ---
Pt returned to his bed following his shower which he states makes his feel "much better". Tele unit replaced and is 63 SR at this time. Call dooley within reach as well as his water. Pt states he is not hungry and does not wish to order dinner but did request a jello and pudding which he was given at this time.
--- NOTE | 2020-09-16 18:15 | NUR ---
PATIENT IN BED RESTING WITH EYES CLOSED. CALL LIGHT IN REACH. NO FURTHER NEEDS AT THIS TIME.
--- NOTE | 2020-09-16 19:18 | NUR ---
PT LYING IN BED. REPORT RECIEVED BY RN. WHITE BOARD UPDATED. CALL LIGHT IN REACH.
--- NOTE | 2020-09-16 20:00 | NUR ---
PT LYING IN BED. ASSESSMENT COMPLETE. I AND O'S DONE. VS STABLE. 1P ASSIST TO STAND WITH URINAL. URINE WNL. REPOSITIONED PT IN BED. CALL LIGHT IN REACH.
--- NOTE | 2020-09-16 20:20 | NUR ---
SBA FROM BATHROOM TO BED. PATIENT IS USING WALKER. LAB PERSON WAS WITH PATIENT.
--- NOTE | 2020-09-16 21:00 | NUR ---
WENT IN TO THE ROOM PER CITY CONTROLLER PATIENT NEEDED TO USE THE BATHROOM. PATIENT STATED HE ALREADY WENT. WIPED CLEANED AND CHANGED PULL UPS, WHITE CHUCKS AND GOWN. CITY CONTROLLER WALTER CAME IN THE ROOM AND HELPED THIS BLOW MOLD TECHNICIAN. PATIENT STAYED IN BED. CALL LIGHT IN REACH.
--- NOTE | 2020-09-16 21:30 | NUR ---
PT LYING IN BED. SCHEDULED MED GIVEN. REPOSITIONED PT IN BED. TRACE EDEMA ON BLE.
--- NOTE | 2020-09-16 22:41 | NUR ---
FOUND PT STANDING BY THE BEDSIDE. VERBALIZED TEACHING TO USE CALL LIGHT WHEN NEEDING ASSISTANCE. PT VERBALIZED UNDERSTANDING. PT HAD A SMALL BM. REPOSITIONED PT IN BED. CALL LIGHT IN REACH.
--- NOTE | 2020-09-16 23:19 | NUR ---
CALL LIGHT ANSWERED. PT WITH URGENCY TO SIDE OF BED TO VOID. INCONTINENT OF SOME URINE WELL. LINENS, GOWN, AND BRIEF CHANGED. WIPES PROVIDED FOR SKIN CARE. PT BACK TO BED, MARIAMA WELL.
--- NOTE | 2020-09-17 00:02 | NUR ---
CALL LIGHT ANSWERED. EMPTIED THE URINAL.
--- NOTE | 2020-09-17 04:29 | NUR ---
PT LYING IN BED. EYES CLOSED. RR WNL WITH UNLABORED BREATHING. CALL LIGHT IN REACH.
--- NOTE | 2020-09-17 04:30 | NUR ---
PT LYING IN BED. EYES CLOSED. NO S/S OF SOB. RR WNL WITH UNLABORED BREATHING. O2 SAT 94% 3L NC. HR MORIS 50'S.
--- NOTE | 2020-09-17 04:50 | NUR ---
PT LYING IN BED. ASSESSMENT COMPLETE. I AND O'S DONE. VS STABLE. SCHEDULED MEDS GIVEN. REPOSITIONED PT IN BED. NO FURTHER NEEDS.
--- NOTE | 2020-09-17 05:09 | NUR ---
ALERT AND ORIENTED.PT 1P STANDBY WITH FWW. URINAL AT BEDSIDE. REGULAR DIET. PT DID NOT SLEEP WELL DUE TO FREQUENTLY TO VOIDS. CONTINUOUS IV 125ML/HR. TELE #1. SINUS BRADYCARDIA.
--- NOTE | 2020-09-17 07:36 | NUR ---
REPORT RECEIVED. PT IN BED AWAKE AND ALERT. TALKS WITH EYES CLSOED POTASSIUM STARTED PER ORDER. BREAKFAST ORDERED. DENEI NEEDS. CALL LIGHT IN REACH.
--- NOTE | 2020-09-17 09:36 | NUR ---
PATIENT IS UP IN CHAIR, PATIENT IS GOING TO HAVE A SHOWER TODAY AT SOME POINT HE SAID, PATIENT IS NOW USING A URINAL BECAUSE HE HAS TO GO SO FREQUENTLY, NOTHING ELSE TO REPORT, CALL LIGHT WITHIN REACH
--- NOTE | 2020-09-17 09:49 | NUR ---
ASSESSMENT COMPLETED. LUNGS CLEAR. PT WITH NO CONCERNS. DENEIES DIZZINESS. ASSISTED PT TO CHAIR FOR BREAKFAST. WASHRAG GIVEN FOR EYES AND EYE DROPS ADMISNTERED.
--- NOTE | 2020-09-17 11:00 | NUR ---
SPENT AN HOUR WITH PATIENT IN ROOM. PATIENT UP IN CHAIR. PATIENT ORIENTED. LIVES ALONE. WAS IN LONG-TERM CARE FOR DEMENTIA BUT ABOUT 6 MONTHS AGO. PATIENT HAS STEP GRANDSON IN AREA THAT HE IS VERY CLOSE TO AND WHO COMES BY OFTEN AND ANYTIME HE NEEDS HIM. HE STATES HE PROBABLY WILL GIVE HIM RIDE HOME AND CAN GO TO STORE ETC NEEDED. HE STATES HAS STEP DAUGHTERS WHO BOTH HAVE OFFERED FOR HIM TO COME STAY WITH THEM ANYTIME. HE DOES NOT HAVE STAIRS. HE HAS A WALKER AT THE HOUSE IF HE NEEDED IT, BUT HAS NOT IN THE PAST. HE DENIES ANY FINANCIAL WORRY OF COST OF MEDS/FOOD/UTILITIES. HE HAS [facility] THAT THEY SET UP WHEN HE STARTED LIVING ALONE. HE ACTUALLY USED IT TO CALL FOR HELP WHEN HE FELT DIZZY LAST WEEKEND. HE PLANS TO CONTINUE IT. HE DRIVES NORMALLY, BUT HAS FRIENDS AND FAMILY WHO CAN TAKE HIM IF HE FEELS HE CAN'T. PATIENT FEELS SAFE TO TRANSITION HOME AT DISCHARGE. CM WILL CONTINUE TO FOLLOW NEEDED.
--- NOTE | 2020-09-17 12:00 | NUR ---
PT UP TO CHAIR FOR LUNCH. DENIES PAIN OR NEEDS. AMBULATING WELL WITH SBA AND NO WALKER. CALL LIGHT IN REACH.
--- NOTE | 2020-09-17 13:40 | NUR ---
PATIENT WAS IN CHAIR, AND ASKED TO BE MOVED TO THE BED, PATIENT IS WANTING TO TAKE A NAP, URINAL, CALL LIGHT AND WATER ARE WITHIN REACH, NOTHING ELSE TO REPORT AT THIS TIME
--- NOTE | 2020-09-17 14:30 | NUR ---
IN TO ADMISNTER EYE DROPS. PT LYING IN BED WITH EYES CLOSED LISTENING TO TV. DENIES OTHER NEEDS. CALL LIGHT IN REACH.
--- NOTE | 2020-09-17 15:36 | NUR ---
DR LOCKHART NOTIFIED OF SODIUM LAB DROP FROM 127 TO 124. NO NEW ORDERS.
--- NOTE | 2020-09-17 17:30 | NUR ---
IN TO ADMINSTER EYE DROPS. PT ATE 100% OF DINNER. DENEIS PAIN/DIZZINESS. PT NOW BACK TO BED. LOZENGE GIVEN FOR PAINFUL COUGH. CALL LIGHT IN REACH.
--- NOTE | 2020-09-17 19:32 | NUR ---
REPORT RECEIVED FROM DAY SHIFT RN. PT LYING IN BED ALERT AND ORIENTED. IVF INFUSING. DENIES NEEDS AT THIS TIME. WHITE BOARD UPDATED. CALL LIGHT IN REACH.
--- NOTE | 2020-09-17 21:39 | NUR ---
CALL LIGHT ANSWERED. SBA FROM RESTROOM BACK TO BED WITH FWW. GAIT STEADY. VSS. DECAF TEA PROVIDED REQUESTED. CALL LIGHT IN REACH. PRIMARY RN NOW IN ROOM.
--- NOTE | 2020-09-17 21:53 | NUR ---
EVENING ASSESSMENT COMPLETE. PT DENIES PAIN OR NAUSEA. PT URGENTLY UP TO BR WITH SBA AND FWW TO HAVE LIQUID BOWEL MOVEMENT. NO C/O DIZZINESS WITH AMBULATION. PT STATES "I REALLY AM FEELING BETTER". BLE EDEMA NOTED. PT DENIES FURTHER NEEDS. CALL LIGHT IN REACH.
--- NOTE | 2020-09-18 01:03 | NUR ---
LAB CALLED EXPLAINING THEY WOULD NOT BE ABLE TO COME TO THE FLOOR TO DRAW LABS ORDERED FOR MIDNIGHT. THIS RN IN TO DRAW LABS PER PROTOCOL. PT MARIAMA WELL. UP TO BEDSIDE TO VOID 280 ML CLEAR YELLOW URINE. UP TO BR WITH SBA AND FWW TO HAVE LARGE LOOSE BOWEL MOVEMENT. GAIT STEADY. PT ABLE TO DO OWN ELIER CARE. BACK TO BED, MARIAMA WELL.
--- NOTE | 2020-09-18 01:45 | NUR ---
CALL LIGHT ANSWERED. PT REPORTS SPILLING URINE ON FLOOR AND NEEDING TO URGENTLY USE THE BR DUE TO HAVING "THE SCOURS". TO BR WITH SBA AND FWW TO HAVE LIQUID BM. PT LINENS, SOCKS, SKIN, AND FLOOR CLEANED. BACK TO BED. GAIT STEADY. NO FURTHER NEEDS. CALL LIGHT IN REACH.
--- NOTE | 2020-09-18 03:12 | NUR ---
CALL LIGHT ANSWERED. PT AT SIDE OF BED TO USE URINAL. "YOU GOTTA GET ME TO THE BATHROOM RIGHT NOW". UP TO BR WITH SBA AND FWW. PT REPORTS HAVING HAD LIQUID BM. NO STOOL NOTED IN TOILET. BACK TO BED. GAIT STEADY.
--- NOTE | 2020-09-18 06:07 | NUR ---
SCHEDULED MEDS ADMINISTERED. VS AND I&O COMPLETE. NO FURTHER NEEDS AT THIS TIME. CALL LIGHT IN REACH.
--- NOTE | 2020-09-18 07:46 | NUR ---
REPORT RECEIVED. PT IN BED AWAKE. DENIES PAIN. CALL LIGHT IN REACH. URINAL EMPTIED FOR 200 ML.
[2020-09-18] MEDS ORDERED: METOPROLOL SUCC50 MG PO (08:55)
[2020-09-18] MEDS ORDERED: SPIRONOLACTONE25 MG PO (08:56)
--- NOTE | 2020-09-18 10:30 | NUR ---
ASSESSMENT COMPLETED. MEDICATIONS ADMISNTERED. DISCHARGE INSTRUCTIONS PROVIDED. QUESTIONS ANSWERED. FOLLOW UP DISCUSSED. IV DC'D AND WNL. VITALS TAKEN AND STABLE.
== END 2020-09-18 10:45 | disposition home or self-care (01) | DRG 641 ==
LOC: ED 09:45 → MS 13:00
PROVIDERS: ADMIT Internal Medicine; ATTEND Internal Medicine
DX: E87.1 Hypo-osmolality and hyponatremia (principal); H44.009 Unspecified purulent endophthalmitis, unspecified eye; Z20.828 Contact with and (suspected) exposure to other viral communicable diseases; E87.6 Hypokalemia; K21.9 Gastro-esophageal reflux disease without esophagitis; E11.9 Type 2 diabetes mellitus without complications; E89.0 Postprocedural hypothyroidism; I10 Essential (primary) hypertension; M35.00 Sjogren syndrome, unspecified; Z85.850 Personal history of malignant neoplasm of thyroid; Z88.2 Allergy status to sulfonamides; Z79.899 Other long term (current) drug therapy; Z79.84 Long term (current) use of oral hypoglycemic drugs; Z79.1 Long term (current) use of non-steroidal anti-inflammatories (NSAID); Z79.51 Long term (current) use of inhaled steroids
CPT/HCPCS: 36415; 71045; 80048; 80053; 81001; 83735; 84439; 84443; 84484; 85025; 93005; 93010; 94640; 99285-25; C9803; J3480; J7030; J7060; U0003

== ENCOUNTER 2022-04-20 19:35 | Emergency (ER) | payer MEDICARE ==
[~2022-04-20] VITALS: Ht 180.3 cm; Wt 93.0 kg
[~2022-04-20 19:35] MED LIST changes: +CELECOXIB200 MG PO; +DESMOPRESSIN ACE5 ML NAS; +DILTIAZEM 24HR240 M1 PO; +HYDROCHLOROTHIA25 MG PO; +LEVOTHYROXINE175 MCG PO; +METFORMIN HCL500 M1 PO; +METOPROLOL SUCC50 MG PO; +OCUFLOX5 ML OU; +PREDNISOLONE ACE5 ML OU; +PULMICORT FLE180 MCG INH; +SPIRONOLACTONE25 MG PO; +TERAZOSIN HCL1 MG PO
[2022-04-21] MEDS ORDERED: ULTRAM50 MG PO (00:09)
[2022-04-22] MEDS ORDERED: DOXYCYCLINE MO100 MG PO (09:57)
[2022-04-22] MEDS ORDERED: OXYCODONE HCL5 MG PO (14:08)
== END 2022-04-21 00:55 | disposition home or self-care (01) ==
LOC: ED 19:35
DX: M51.36 Other intervertebral disc degeneration, lumbar region (principal); I10 Essential (primary) hypertension; K21.9 Gastro-esophageal reflux disease without esophagitis; E11.9 Type 2 diabetes mellitus without complications; Z88.2 Allergy status to sulfonamides; Z79.899 Other long term (current) drug therapy; Z79.84 Long term (current) use of oral hypoglycemic drugs
CPT/HCPCS: 72100; 96372; 99283-25; A9270; J2270